=== PATIENT | female | born 1940 | race Caucasian/White ===

== ENCOUNTER 2016-07-19 14:59 | Outpatient (CLI) | payer MEDICARE, OTHER ==
[2016-07-19] MEDS ORDERED: IOPAMIDOL-300 100 ML VIAL IVP ONE (16:32)
== END 2016-07-19 15:00 | disposition home or self-care (01) ==
DX: J43.9 Emphysema, unspecified (principal); K44.9 Diaphragmatic hernia without obstruction or gangrene
CPT/HCPCS: 71275; Q9967

== ENCOUNTER 2016-09-23 11:32 | Outpatient (CLI) | payer MEDICARE, OTHER | END 2016-09-23 11:33 | disposition critical access hospital (66) | LOC: EMS 11:32 | PROVIDERS: ATTEND Surgery | DX: R06.00 Dyspnea, unspecified (principal) | CPT/HCPCS: A0425; A0429 ==

== ENCOUNTER 2016-09-23 11:57 | Emergency (ER) | payer MEDICARE, OTHER ==
--- NOTE | 2016-09-23 14:12 | ED Physician Documentation ---
PD HPI DYSPNEA - Stated complaint Stated Complaint: SOA - Chief complaint Chief Complaint: Resp - History obtained from History obtained from: Patient - Additional information Additional information: 76yo woman with COPD, on 2l home O2 at night, with increased dyspnea since last night, no cough. No chest pain or calf pain/swelling. Has been undergoing w/u for anemia, had previous dx of polycythemia but now on iron supplement for recent dx iron defy anemia. Upcoming cscope/egd. No help with nebs at home. Is on several days worth now of macrobid for UTI. Review of Systems Constitutional: denies: Fever, Chills Cardiac: denies: Chest pain / pressure, Palpitations, Pedal edema, Calf pain Respiratory: reports: Dyspnea. denies: Cough GI: reports: Bloody / black stool (from iron?). 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, Other HEENT: Cataracts, Tonsil/Adenoidectomy - Present Medications Home Medications: Ambulatory Orders Medication Instructions Recorded Confirmed Cholecalciferol (Vitamin D3) 1,000 unit PO DAILY 12/13/12 07/25/16 [Vitamin D] Docusate Sodium [Colace] 100 mg PO BID #30 capsule 12/13/12 07/25/16 Tiotropium [Spiriva] 1 puffs INH DAILY 12/13/12 07/25/16 amLODIPine [Norvasc] 5 mg PO DAILY 12/13/12 07/25/16 Lactobacillus Rhamnosus GG 1 each PO DAILY 01/15/13 07/25/16 [Probiotic] Anastrozole 1 mg PO DAILY 06/24/13 07/25/16 Aspirin [Aspirin EC] 81 mg ORAL DAILY 12/16/13 07/25/16 Atenolol 50 mg PO DAILY 03/27/15 07/25/16 Fluticasone/Salmeterol [Advair 2 each IH DAILY 03/29/15 07/25/16 100-50 Diskus] Ferrous Gluconate 324 mg PO BID 07/25/16 07/25/16 Cephalexin [Keflex] 500 mg PO QID #30 capsule 09/23/16 predniSONE [Deltasone] 20 mg PO [id number] #21 tab 09/23/16 - Allergies Allergies/Adverse Reactions: Allergies Allergy/AdvReac Type Severity Reaction Status Date / Time venom-honey bee Allergy Severe ANAPHYLAXIS Verified 09/17/15 11:35 [bee venom (honey bee)] FARZANEH Inhibitors Allergy TONGUE Verified 09/17/15 11:35 SWELLING - Social History Does the pt smoke?: No Smoking Status: Never smoker Does the pt drink ETOH?: Yes Does the pt have substance abuse?: No - Immunizations Immunizations are current?: Yes - POLST Patient has POLST: No PD ED PE NORMAL - Vitals Vital signs reviewed: Yes - General General: Alert and oriented X 3, No acute distress - HEENT HEENT: PERRL, EOMI - Neck Neck: Supple, no meningeal sign, No bony TTP - Cardiac Cardiac: RRR, No murmur - Respiratory Respiratory: No respiratory distress, Other (diminished throughout/) - Abdomen Abdomen: Soft, Non tender - Rectal Rectal: Other (Sarah RN present/chaperoning. Dark but guaiac neg stool QC pass.) - Derm Derm: Normal color, Warm and dry, No rash - Extremities Extremities: No edema, No calf tenderness / cord - Neuro Neuro: Alert and oriented X 3, Normal speech - Psych Psych: Normal mood, Normal affect Results - Vitals Vitals: Vital Signs - 24 hr 09/23/16 09/23/16 12:04 15:20 Temperature 36.3 C L Heart Rate 72 83 Respiratory 21 23 Rate Blood Pressure 135/64 H O2 Saturation 88 L Oxygen O2 Source [] Room air O2 Source Nasal cannula - EKG (time done) 1212 Rate: Rate (enter#) (71) Rhythm: NSR [place]: Normal QRS: Low voltage Ischemia: Normal ST segments Computer interpretation: Agree with computer - Labs Labs: Laboratory Tests 09/23/16 09/23/16 09/23/16 14:15 14:15 14:15 WBC 6.6 RBC 4.56 Hgb 11.2 L Hct 35.6 L MCV 78.1 L MCH 24.6 L MCHC 31.5 L RDW 24.5 H Plt Count 238 MPV 8.0 Neut # 4.6 Lymph # 0.9 L [place] # 0.7 Eos # 0.3 Baso # 0.1 Absolute Nucleated RBC 0.00 Nucleated RBCs 0.0 Manual Slide Review Indicated Platelet Estimate NORMAL (130-450,000) RBC Morph Micro Appear 1+ ELIPTOCYTES D-Dimer Sodium 139 Potassium 4.2 Chloride 103 Carbon Dioxide 26 Anion Gap 10.0 BUN 19 Creatinine 1.1 H Estimated GFR (MDRD) 48 L Glucose 99 Calcium 9.8 Iron 42 TIBC 400 % Saturation 10 L Transferrin 286 Ferritin 21.2 Total Bilirubin 0.5 AST 18 ALT 17 Alkaline Phosphatase 58 Troponin I Total Protein 6.8 Albumin 3.7 Globulin 3.1 Albumin/Globulin Ratio 1.2 Lipase 33 09/23/16 09/23/16 14:15 14:15 WBC RBC Hgb Hct MCV MCH MCHC RDW Plt Count MPV Neut # Lymph # [place] # Eos # Baso # Absolute Nucleated RBC Nucleated RBCs Manual Slide Review Platelet Estimate RBC Morph Micro Appear D-Dimer 201.0 Sodium Potassium Chloride Carbon Dioxide Anion Gap BUN Creatinine Estimated GFR (MDRD) Glucose Calcium Iron TIBC % Saturation Transferrin Ferritin Total Bilirubin AST ALT Alkaline Phosphatase Troponin I < 0.04 Total Protein Albumin Globulin Albumin/Globulin Ratio Lipase - Rads (name of study) 1v chest Radiology: EMP read contemporaneously (NAD) PD MEDICAL DECISION MAKING - ED course ED course: 76-year-old woman with COPD presents with acute dyspnea. Really no cough but her lungs were tight. Neb here without much improvement but she wasn't labored. Consideration for worsening anemia however her H&H is better and she is guaiac negative. Also consideration for cardiac etiology or PE but troponin and d-dimer are negative. Requested discharge. Says that prednisone has helped with similar exacerbations in the past. Departure - Departure Disposition: Home, Self Care Clinical Impression: Dyspnea, COPD exacerbation Condition: Good Record reviewed to determine appropriate education?: Yes Instructions: COPD Dc Prescriptions: predniSONE [Deltasone] 20 mg PO [id number] #21 tab Cephalexin [Keflex] 500 mg PO QID #30 capsule Comments: Call your doctor to arrange a follow up appointment. Make the next available appointment. In the interim return anytime if worse or if new symptoms develop. Your blood pressure was elevated today on check in to the emergency department. This does not mean that you have hypertension, it is a common phenomenon to check into the emergency department and have elevated blood pressure. I recommend that you see your primary care physician within the week to have it rechecked when you're feeling better.
[2016-09-23 14:23] LABS: BASOPHILS # (AUTO) 0.1 10^3/uL (0.0-0.1); BASOPHILS % (AUTO) 1.1 %; EOSINOPHILS # (AUTO) 0.3 10^3/uL (0.0-0.7); EOSINOPHILS % (AUTO) 5.3 %; HCT - HEMATOCRIT 35.6 % (37.0-47.0); HGB - HEMOGLOBIN 11.2 g/dL (12.0-16.0); LYMPHOCYTES # (AUTO) 0.9 10^3/uL (1.5-3.5); LYMPHOCYTES % (AUTO) 13.4 %; MEAN CORPUSCULAR HEMOGLOBIN 24.6 pg (27.0-31.0); MEAN CORPUSCULAR HGB CONC 31.5 g/dL (32.0-36.0); MEAN CORPUSCULAR VOLUME 78.1 fL (81.0-99.0); MONOCYTES # (AUTO) 0.7 10^3/uL (0.0-1.0); MONOCYTES % (AUTO) 10.2 %; NEUTROPHILS # (AUTO) 4.6 10^3/uL (1.5-6.6); RED BLOOD COUNT 4.56 10^6/uL (4.20-5.40); RED CELL DISTRIBUTION WIDTH 24.5 % (12.0-15.0); UNCORRECTED WHITE BLOOD COUNT 6.6 x10^3/uL; WHITE BLOOD COUNT 6.6 x10^3/uL (4.8-10.8)
[2016-09-23 14:44] LABS: PLATELET ESTIMATE, MANUAL NORMAL (130-450,000) (NORMAL)
--- NOTE | 2016-09-23 14:48 | XRAY Report ---
EXAM: CHEST RADIOGRAPHY EXAM DATE: 09/23/2016 02:31 PM. CLINICAL HISTORY: DYSPNEA. COMPARISON: CT chest 07/19/2016.. TECHNIQUE: 1 view. FINDINGS: Lungs/Pleura: No focal opacities evident. No pleural effusion. No pneumothorax. Mediastinum: Cardiomegaly. Calcified atherosclerosis. Large hilar hernia. Other: Multiple remote rib fractures. Arthritic change right shoulder. No acute bone abnormality. IMPRESSION: 1. No acute cardiopulmonary disease. 2. Calcified atherosclerosis, cardiomegaly and hiatal hernia. [facility] Referring Provider Line: [phone] SITE ID: [id number]
[2016-09-23 15:06] LABS: ALBUMIN/GLOBULIN RATIO 1.2 (1.0-2.2); BILIRUBIN,TOTAL 0.5 mg/dL (0.2-1.0); CALCIUM 9.8 mg/dL (8.5-10.3); CREATININE 1.1 mg/dL (0.4-1.0); POTASSIUM 4.2 mmol/L (3.5-5.0); TOTAL PROTEIN 6.8 g/dL (6.7-8.2)
[2016-09-23] MEDS ORDERED: IPRATROPIUM/ALBUTEROL 3 ML NEB INH STA (15:07)
[2016-09-23] MEDS ORDERED: IPRATROPIUM/ALBUTEROL 3 ML NEB INH ONE (15:16)
[2016-09-23] MEDS ORDERED: CEPHALEXIN 250 MG CAPSULE PO STA (16:01)
[2016-09-23] MEDS ORDERED: methylPREDNISolone SUCCINATE 125 MG/2 ML VIAL IVP STA (16:01)
[2016-09-23] MEDS ORDERED: CEPHALEXIN 250 MG CAPSULE PO ONE (16:28)
[2016-09-23] MEDS ORDERED: methylPREDNISolone SUCCINATE 125 MG/2 ML VIAL IVP ONE (16:28)
[2016-09-23 18:37] VITALS: BP 149/75
== END 2016-09-23 17:30 | disposition home or self-care (01) ==
LOC: EDUNIT# → ED 11:57
DX: J44.1 Chronic obstructive pulmonary disease with (acute) exacerbation (principal); Z99.81 Dependence on supplemental oxygen; I10 Essential (primary) hypertension; M19.90 Unspecified osteoarthritis, unspecified site; Z87.442 Personal history of urinary calculi
CPT/HCPCS: 36415; 71010; 80053; 82728; 83540; 83690; 84466; 84484; 85025; 85379; 86850; 86900; 86901; 93005; 93010; 94640; 96374; 99284; A9270; J7620

== ENCOUNTER 2016-11-09 10:36 | Day surgery (SDC) | payer MEDICARE, OTHER ==
[2016-11-09] MEDS ORDERED: LACTATED RINGERS 1,000 ML IV ONE (11:17)
--- NOTE | 2016-11-09 12:57 | HISTORY & PHYSICAL EXAMINATION ---
HPI - History of Present Illness HPI Comment/Other: Patient is here for colonoscopy for iron deficiency anemia Current Meds: TYLENOL EXTRA STRENGTH 500 MG TABS (ACETAMINOPHEN) Take one tablet by mouth three times daily as needed for pain or fever VITAMIN C 1000 MG TABS (ASCORBIC ACID) Take one tablet by mouth daily COLACE 100 MG CAPS (DOCUSATE SODIUM) Take one capsule by mouth twice daily ATENOLOL-CHLORTHALIDONE 100-25 MG ORAL TABS (ATENOLOL-CHLORTHALIDONE) Take 1/2 tablet by mouth ANASTROZOLE 1 MG ORAL TABS (ANASTROZOLE) Take one tablet by mouth once a day AMLODIPINE BESYLATE 5 MG ORAL TABS (AMLODIPINE BESYLATE) Take one tablet by mouth once a day ATENOLOL 50 MG ORAL TABS (ATENOLOL) Take one tablet by mouth daily ASPIRIN EC 81 MG TBEC (ASPIRIN) Take one tablet by mouth daily ADVAIR DISKUS 100-50 MCG/DOSE MISC (FLUTICASONE-SALMETEROL) Use one inhalation twice daily Allergies: MORPHINE (Critical) FARZANEH INHIBITORS (Critical) DIOVAN (Critical) LIBRAX (CHLORDIAZEPOXIDE-CLIDINIUM CAPS) (Critical) * BENZODIAZEPINES (Critical) * BEE (Critical) * ADHESIVES (Critical) Past Medical History: Reviewed history from 07/14/2016 and no changes required: Hypertension LUmbar disk disease Polycythemia Vera COPD IBS TIA Emphyzema Pneumonia Infiltating ductal Breast cancer Osteopenia Osteoporosis Anemia Past Surgical History: Reviewed history from 07/14/2016 and no changes required: Fracture Fibula and left knee Pelvic Hip fracture, L1 column Fx T&A Bilateral Foot reconstruction Arthoscopic knee Bone marrow biopsy 2009 Appendectomy 2011 Diverticulitis 1998 Pneumonia 2008 Reclast infusion 2016 Family History Summary: Reviewed history Last on 08/16/2016 and no changes required:09/15/2016 Father (biol.) - Has Family History of Hypertension - Entered On: 09/15/2016 General Comments - FH: Mother: NH Father: Hypertension, Hyperlipidemia Social History: Reviewed history from 07/14/2016 and no changes required: Passive smoke exposure - no Alcohol Use - no Drug Use - no HIV/High Risk - no Regular Exercise - yes Caffeine: yes Risk Factors: Smoked Tobacco Use: Former smoker Passive smoke exposure: no Drug use: no HIV high-risk behavior: no Alcohol use: no Exercise: no Problems were reviewed with the patient during this visit. Medications were reviewed with the patient during this visit. Allergies were reviewed with the patient during this visit. Allergies: MORPHINE (Critical) FARZANEH INHIBITORS (Critical) DIOVAN (Critical) LIBRAX (CHLORDIAZEPOXIDE-CLIDINIUM CAPS) (Critical) * BENZODIAZEPINES (Critical) * BEE (Critical) * ADHESIVES (Critical) Physical Exam General: well developed, well nourished, in no acute distress Lungs: clear bilaterally to A & P Heart: regular rate and rhythm, S1, S2 without murmurs, rubs, gallops, or clicks Abdomen: bowel sounds positive; abdomen soft and non-tender without masses, organomegaly, or hernias noted Pulses: pulses normal in all 4 extremities Extremities: no clubbing, cyanosis, edema, or deformity noted with normal full range of motion of all joints Cervical Nodes: no significant adenopathy Psych: alert and cooperative; normal mood and affect; normal attention span and concentration Problems: Problems Added: 1) Dx of Iron deficiency anemia (GYH52-A67.9) (ICD-280.9) Impression & Recommendations: Problem # 1: Iron deficiency anemia will proceed with colonoscopy PMH/PSH - Past Medical History Cardiovascular: positive: Hypertension Respiratory: positive: COPD Neuro: positive: Fainting Endocrine/Autoimmune: positive: None GI: positive: Other : positive: None, Kidney stones HEENT: positive: None Psych: positive: None Musculoskeletal: positive: Osteoarthritis Derm: positive: None MRSA Hx?: No - Past Surgical History General: positive: Appendectomy Ortho: positive: Rotator cuff repair, 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: 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 and currettage, Other HEENT: positive: Cataracts, Tonsil/Adenoidectomy Social & Family Hx - Social History Does the pt smoke?: No Smoking Status: Never smoker Does the pt drink ETOH?: Yes Does the pt have substance abuse?: No - POLST Patient has POLST: No Meds/Allgy - Home Medications Home Medications: Ambulatory Orders Medication Instructions Recorded Confirmed Cholecalciferol (Vitamin D3) 1,000 unit PO DAILY 12/13/12 09/26/16 [Vitamin D] Docusate Sodium [Colace] 100 mg PO BID #30 capsule 12/13/12 09/26/16 Tiotropium [Spiriva] 1 puffs INH DAILY 12/13/12 09/26/16 amLODIPine [Norvasc] 5 mg PO DAILY 12/13/12 09/26/16 Lactobacillus Rhamnosus GG 1 each PO DAILY 01/15/13 09/26/16 [Probiotic] Anastrozole 1 mg PO DAILY 06/24/13 09/26/16 Aspirin [Aspirin EC] 81 mg ORAL DAILY 12/16/13 09/26/16 Atenolol 50 mg PO DAILY 03/27/15 09/26/16 Fluticasone/Salmeterol [Advair 2 each IH DAILY 03/29/15 09/26/16 100-50 Diskus] Ferrous Gluconate 324 mg PO BID 07/25/16 09/26/16 Cephalexin [Keflex] 500 mg PO QID #30 capsule 09/23/16 09/26/16 predniSONE [Deltasone] 0.25 mg PO [id number] 11/09/16 11/09/16 - Allergies Allergies/Adverse Reactions: Allergies Allergy/AdvReac Type Severity Reaction Status Date / Time venom-honey bee Allergy Severe ANAPHYLAXIS Verified 09/17/15 11:35 [bee venom (honey bee)] FARZANEH Inhibitors Allergy TONGUE Verified 09/17/15 11:35 SWELLING Exam - Vital Signs Vital Signs: Vital Signs x48h Temp Pulse Resp BP Pulse Ox 11/09/16 10:40 36.9 C 76 18 157/91 H 94
[2016-11-09] MEDS ORDERED: MIDAZOLAM 2 MG/2 ML VIAL IVP ONE (13:01)
[2016-11-09] MEDS ORDERED: fentaNYL 100 MCG/2 ML VIAL IVP ONE (13:01)
[2016-11-09 15:34] VITALS: BP 133/78
== END 2016-11-09 10:37 | disposition home or self-care (01) ==
LOC: SDS 10:36
PROVIDERS: ATTEND Surgery
PROC: 0DBN8ZX Excision of Sigmoid Colon, Via Natural or Artificial Opening Endoscopic, Diagnostic (ICD-10-PCS; principal; 2016-11-09 12:00)
DX: D50.9 Iron deficiency anemia, unspecified (principal); D12.5 Benign neoplasm of sigmoid colon; K64.4 Residual hemorrhoidal skin tags; K57.30 Diverticulosis of large intestine without perforation or abscess without bleeding; I10 Essential (primary) hypertension; J44.9 Chronic obstructive pulmonary disease, unspecified; Z82.49 Family history of ischemic heart disease and other diseases of the circulatory system; Z87.891 Personal history of nicotine dependence; Z86.73 Personal history of transient ischemic attack (TIA), and cerebral infarction without residual deficits; Z79.82 Long term (current) use of aspirin
CPT/HCPCS: 45385; J7120; 88305

== ENCOUNTER 2016-12-20 11:16 | Outpatient (CLI) | payer MEDICARE, OTHER | END 2016-12-20 11:17 | disposition home or self-care (01) | LOC: DI 11:16 | PROVIDERS: ATTEND Internal Medicine Hematology & Oncology | DX: Z53.9 Procedure and treatment not carried out, unspecified reason (principal) ==

== ENCOUNTER 2016-12-26 13:51 | Outpatient (CLI) | payer MEDICARE, OTHER ==
--- NOTE | 2016-12-27 08:50 | Mammography Report ---
DIGITAL DIAGNOSTIC BILATERAL MAMMOGRAM: 12/26/2016 CLINICAL INDICATION: Personal history of left breast cancer status post lumpectomy and radiation the rapy. COMPARISON: 12/2015, 12/2014, 05/2014, 10/2013, 01/2013, 10/2012, 09/2012, 04/2010. The breasts again demonstrate heterogeneously dense fibroglandular parenchyma bilaterally. Postopera tive and post-treatment changes in the left breast are stable. Coarse and punctate, typically benign calcifications are present. No suspicious masses, clustered microcalcifications, or regions of arch itectural distortion are identified. IMPRESSION: BENIGN FINDINGS. RECOMMENDATION: ROUTINE ANNUAL MAMMOGRAPHY UNLESS OTHERWISE CLINICALLY INDICATED. BIRADS CATEGORY: 2, BENIGN FINDINGS. STANDARD QUALIFYING STATEMENTS 1. This examination was reviewed with the aid of Computed-Aided Detection (CAD). 2. A negative or benign imaging report should not delay biopsy if clinically suspicious findings are present. Consider surgical consultation if warranted. More than 5% of cancers are not identified b y imaging. 3. Dense breasts may obscure an underlying neoplasm. JOB #: [id number] EXT JOB #:
== END 2016-12-26 13:52 | disposition home or self-care (01) ==
LOC: DI 13:51
PROVIDERS: ATTEND Internal Medicine Hematology & Oncology
DX: C50.912 Malignant neoplasm of unspecified site of left female breast (principal); Z92.3 Personal history of irradiation
CPT/HCPCS: 77066

== ENCOUNTER 2017-03-12 15:32 | Outpatient (CLI) | payer MEDICARE, OTHER ==
[2017-03-12 18:46] LABS: CALCIUM 9.6 mg/dL (8.5-10.3); POTASSIUM 4.2 mmol/L (3.5-5.0)
== END 2017-03-12 15:33 | disposition home or self-care (01) ==
LOC: LAB.F 15:32
PROVIDERS: ATTEND Nurse Practitioner Family
DX: M81.0 Age-related osteoporosis without current pathological fracture (principal)
CPT/HCPCS: 36415; 80048

== ENCOUNTER 2017-04-27 14:30 | Outpatient (CLI) | payer MEDICARE, OTHER ==
[2017-04-27 17:36] LABS: BILIRUBIN,URINE NEGATIVE (NEGATIVE); GLUCOSE, URINE (UA) NEGATIVE (NEGATIVE); KETONES,URINE (UA) NEGATIVE (NEGATIVE); LEUKOCYTE ESTERASE, URINE NEGATIVE (NEGATIVE); NITRITE,URINE NEGATIVE (NEGATIVE); OCCULT BLOOD,URINE NEGATIVE (NEGATIVE); PROTEIN,URINE NEGATIVE (NEGATIVE); UROBILINOGEN,URINE 0.2 (NORMAL) E.U./dL (NORMAL)
[2017-04-27 17:50] LABS: CLARITY,URINE CLEAR (CLEAR); RBC,URINE 0-5 /HPF (0-5); SQUAMOUS EPITHELIAL CELL,UR RARE Squamous (<= Few)
[2017-04-27 17:51] LABS: BACTERIA,URINE None Seen /HPF (None Seen); EPITHELIAL CELLS,UR FEW Transitional /HPF (<= Few)
== END 2017-04-27 14:31 | disposition home or self-care (01) ==
LOC: LAB.R 14:30
PROVIDERS: ATTEND Nurse Practitioner Family
DX: N39.0 Urinary tract infection, site not specified (principal)
CPT/HCPCS: 81001; 81003; 87086

== ENCOUNTER 2017-10-08 | Outpatient (CLI) | END 2017-10-08 11:28 | disposition critical access hospital (66) | CPT/HCPCS: A0425; A0427 ==

== ENCOUNTER 2017-10-08 11:57 | Observation (INO) | payer MEDICARE, OTHER ==
[2017-10-08 13:00] LABS: BASOPHILS % (AUTO) 1.2 %; EOSINOPHILS % (AUTO) 2.3 %; HGB - HEMOGLOBIN 13.3 g/dL (12.0-16.0); LYMPHOCYTES % (AUTO) 17.6 %; MEAN CORPUSCULAR HEMOGLOBIN 29.1 pg (27.0-31.0); MEAN CORPUSCULAR HGB CONC 32.6 g/dL (32.0-36.0); MEAN CORPUSCULAR VOLUME 89.3 fL (81.0-99.0); MEAN PLATELET VOLUME 8.6 fL (7.9-10.8); MONOCYTES % (AUTO) 10.9 %; PLT - PLATELET COUNT 207 10^3/uL (130-450); RED BLOOD COUNT 4.58 10^6/uL (4.20-5.40); RED CELL DISTRIBUTION WIDTH 15.6 % (12.0-15.0); WHITE BLOOD COUNT 7.3 x10^3/uL (4.8-10.8)
--- NOTE | 2017-10-08 13:04 | ED Physician Documentation ---
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, Other HEENT: Cataracts, Tonsil/Adenoidectomy - Present Medications Home Medications: Ambulatory Orders Medication Instructions Recorded Confirmed Cholecalciferol (Vitamin D3) 1,000 unit PO DAILY 12/13/12 10/08/17 [Vitamin D] Tiotropium [Spiriva] 1 puffs INH DAILY 12/13/12 10/08/17 amLODIPine [Norvasc] 5 mg PO DAILY 12/13/12 10/08/17 Aspirin [Aspirin EC] 81 mg ORAL DAILY 12/16/13 10/08/17 Atenolol 50 mg PO DAILY 03/27/15 10/08/17 Fluticasone/Salmeterol [Advair 1 puffs INH BID 03/29/15 10/08/17 100-50 Diskus] Ferrous Gluconate 324 mg PO BID 07/25/16 10/08/17 Albuterol Sulfate [Proair Hfa 1 - 2 puffs INH Q4H PRN 10/08/17 10/08/17 Inhaler] Anastrozole [Anastrozole] 1 mg PO DAILY 10/08/17 10/08/17 Docusate Sodium 100 mg PO DAILY PRN 10/08/17 10/08/17 predniSONE [Deltasone] 5 mg PO DAILY 10/08/17 10/08/17 - Allergies Allergies/Adverse Reactions: Allergies Allergy/AdvReac Type Severity Reaction Status Date / Time venom-honey bee Allergy Severe ANAPHYLAXIS Verified 03/30/17 12:35 [bee venom (honey bee)] FARZANEH Inhibitors Allergy TONGUE Verified 03/30/17 12:35 SWELLING - Social History Does the pt smoke?: No Smoking Status: Former smoker Does the pt drink ETOH?: Yes Does the pt have substance abuse?: No - Immunizations Immunizations are current?: Yes - POLST Patient has POLST: No PD ED PE NORMAL - Vitals Vital signs reviewed: Yes - Cardiac Cardiac: RRR - Respiratory Respiratory: No respiratory distress, Clear bilaterally, Other (no wheeze or ronchi) - Abdomen Abdomen: Soft, Non tender - Derm Derm: Normal color - Extremities Extremities: No deformity, No calf tenderness / cord. No: No edema (mod RLE edema at ankle) Results - Vitals Vitals: Vital Signs - 24 hr 10/08/17 10/08/17 10/08/17 11:58 12:12 14:08 Temperature 36.5 C Heart Rate 62 61 67 Respiratory 20 18 19 Rate Blood Pressure 138/86 H 130/108 H 122/73 O2 Saturation 100 100 100 Oxygen O2 Source [With Activity] Room air O2 Source Nasal cannula Oxygen Flow Rate 2 - EKG (time done) 1432 Rate: Rate (enter#) (66) Rhythm: NSR [place]: Normal Intervals: Normal [place] Ischemia: Normal ST segments - Labs Labs: Laboratory Tests 10/08/17 10/08/17 10/08/17 12:37 12:37 12:37 WBC 7.3 RBC 4.58 Hgb 13.3 Hct 40.9 MCV 89.3 MCH 29.1 MCHC 32.6 RDW 15.6 H Plt Count 207 MPV 8.6 Neut # (Auto) Not Reportable Lymph # (Auto) Not Reportable [place] # (Auto) Not Reportable Eos # (Auto) Not Reportable Baso # (Auto) Not Reportable Absolute Nucleated RBC Not Reportable Total Counted 100 Band Neuts % (Manual) 1 Reactive Lymphs % (Man) 9 Abnorm Lymph % (Manual) 0 Myelocytes % 1 H Nucleated RBC % Not Reportable Neutrophils # (Manual) 5.3 Lymphocytes # (Manual) 1.5 Monocytes # (Manual) 0.4 Eosinophils # (Manual) 0.0 Basophils # (Manual) 0.1 Differential Comment MANUAL DIFFERENTIAL Manual Slide Review Indicated RBC Morph Micro Appear 2+ ANISOCYTOSIS Sodium 139 Potassium 3.9 Chloride 105 Carbon Dioxide 28 Anion Gap 6.0 BUN 20 Creatinine 1.1 H Estimated GFR (MDRD) 48 L Glucose 90 Calcium 8.8 Total Bilirubin 0.7 AST 16 ALT 16 Alkaline Phosphatase 32 L Troponin I < 0.04 B-Natriuretic Peptide Total Protein 6.1 L Albumin 3.3 Globulin 2.8 Albumin/Globulin Ratio 1.2 Lipase 31 10/08/17 12:37 WBC RBC Hgb Hct MCV MCH MCHC RDW Plt Count MPV Neut # (Auto) Lymph # (Auto) [place] # (Auto) Eos # (Auto) Baso # (Auto) Absolute Nucleated RBC Total Counted [place] % (Manual) Reactive Lymphs % (Man) Abnorm Lymph % (Manual) Myelocytes % Nucleated RBC % Neutrophils # (Manual) Lymphocytes # (Manual) Monocytes # (Manual) Eosinophils # (Manual) Basophils # (Manual) Differential Comment Manual Slide Review RBC Morph Micro Appear Sodium Potassium Chloride Carbon Dioxide Anion Gap BUN Creatinine Estimated GFR (MDRD) Glucose Calcium Total Bilirubin AST ALT Alkaline Phosphatase Troponin I B-Natriuretic Peptide 81 Total Protein Albumin Globulin Albumin/Globulin Ratio Lipase - Rads (name of study) CTPA Radiology: See rad report CXR Radiology: See rad report (no acute process) doppler Radiology: See rad report (no DVT) PD MEDICAL DECISION MAKING - ED course ED course: not wheezing, good air movement, not relieved with her MDIs etc - do not think this is COPD exacerbation RLE swelling so reasonable concern for PE but CTPA neg for PE - also neg for edema infiltrate etc and lower ext doppler neg still leave possible cardiac etiology since sx are exertional - could be angina will admit for echo stress etc - Sepsis Event Vital Signs: Vital Signs - 24 hr 10/08/17 10/08/17 10/08/17 11:58 12:12 14:08 Temperature 36.5 C Heart Rate 62 61 67 Respiratory 20 18 19 Rate Blood Pressure 138/86 H 130/108 H 122/73 O2 Saturation 100 100 100 Oxygen O2 Source [With Activity] Room air O2 Source Nasal cannula Oxygen Flow Rate 2 Departure - Departure Disposition: ED Place in Observation Clinical Impression: Dyspnea on exertion Condition: Fair Discharge Date/Time: 10/08/17 15:38
--- NOTE | 2017-10-08 13:07 | XRAY Report ---
Procedure Date: 10/08/2017 Accession Number: [id number] / [id number] Procedure: XR - Chest 2 View X-Ray CPT Code: 28612 FULL RESULT: EXAM: CHEST RADIOGRAPHY EXAM DATE: 10/08/2017 12:40 PM. CLINICAL HISTORY: Cough, dyspnea. COMPARISON: 09/18/2015. TECHNIQUE: 2 views. FINDINGS: Lungs/Pleura: No focal consolidation. Mild bibasilar reticular opacities are similar to prior and likely reflect scarring. No pneumothorax or pleural effusion. Borderline hyperinflation. Mediastinum: Mild enlargement of the cardiac silhouette. Moderate hiatal hernia. Tortuous, atherosclerotic thoracic aorta. Other: Old right rib fractures again demonstrated. IMPRESSION: No radiographically apparent acute abnormality in the chest. No significant change from prior. [facility]
[2017-10-08 13:12] LABS: ALBUMIN 3.3 g/dL (3.2-5.5); ALBUMIN/GLOBULIN RATIO 1.2 (1.0-2.2); BILIRUBIN,TOTAL 0.7 mg/dL (0.2-1.0); CALCIUM 8.8 mg/dL (8.5-10.3); CREATININE 1.1 mg/dL (0.4-1.0); TOTAL PROTEIN 6.1 g/dL (6.7-8.2)
[2017-10-08 13:17] LABS: RBC MORPHOLOGY (MULTIPLE) 2+ ANISOCYTOSIS (NORMAL)
[2017-10-08 13:18] LABS: ABNORMAL LYMPHS % (MANUAL) 0 %
[2017-10-08] MEDS ORDERED: IOPAMIDOL-300 100 ML VIAL ONE (13:18)
[2017-10-08 13:21] LABS: BAND NEUTROPHILS % (MANUAL) 1 %; BASOPHILS # (MANUAL) 0.1 10^3/uL (0-0.1); BASOPHILS % (MANUAL) 2 %; LYMPHOCYTES # (MANUAL) 1.5 10^3/uL (1.5-3.5); LYMPHOCYTES % (MANUAL) 11 %; MONOCYTES # (MANUAL) 0.4 10^3/uL (0.0-1.0); MYELOCYTES % (MANUAL) 1 %; NEUTROPHILS # (MANUAL) 5.3 10^3/uL (1.5-6.6); NEUTROPHILS % (MANUAL) 71 %
[2017-10-08 13:22] LABS: DIFFERENTIAL COMMENT MANUAL DIFFERENTIAL
[2017-10-08] MEDS ORDERED: IOPAMIDOL-300 100 ML VIAL IVP ONE ×2 (13:41→14:59)
--- NOTE | 2017-10-08 14:04 | CT Report ---
Procedure Date: 10/08/2017 Accession Number: [id number] / [id number] Procedure: CT - Chest Angio (PE) CPT Code: FULL RESULT: EXAM: CT ANGIOGRAM CHEST EXAM DATE: 10/08/2017 01:39 PM. CLINICAL HISTORY: Shortness of air. Right lower extremity swelling. COMPARISON: 07/19/2016. TECHNIQUE: Routine helical imaging was performed through the chest in the pulmonary arterial phase. IV Contrast: 80 cc Isovue 300 IV. Reconstructions: Coronal 3-D MIP reconstructions.Sagittal and coronal. In accordance with CT protocol optimization, one or more of the following dose reduction techniques were utilized for this exam: automated exposure control, adjustment of mA and/or KV based on patient size, or use of iterative reconstructive technique. FINDINGS: Pulmonary Arteries: Diagnostic quality: Adequate through the segmental arteries. Negative for acute pulmonary embolism. The main pulmonary artery is normal in size. Lungs/Pleura: There is a moderate degree of diffuse centrilobular emphysema. There is right lower lobe atelectasis secondary to hiatal hernia. No consolidative process or pulmonary edema. No central endobronchial obstructing mass. Mediastinum: There is a moderate-sized sliding hiatal hernia. The heart size is normal. There is no pericardial effusion. There is moderate coronary artery atherosclerotic calcification. Thoracic Aorta: There is aortic calcification without aneurysm. Upper Abdomen: Unremarkable. Other: There are multiple old right-sided posterior and lateral rib fractures with callus formation. IMPRESSION: 1. Negative for acute pulmonary embolism. 2. Moderate centrilobular emphysema. 3. Moderate-sized hiatal hernia with right lower lobe atelectasis. 4. No acute pneumonia or pulmonary edema. [facility]
--- NOTE | 2017-10-08 14:48 | Ultrasound Report ---
Procedure Date: 10/08/2017 Accession Number: [id number] / [id number] Procedure: US - Duplex Ext Veins Right CPT Code: FULL RESULT: EXAM: Duplex Ext Veins Right DATE: 10/08/2017 2:24 PM CLINICAL HISTORY: Right lower extremity swelling COMPARISON: None. TECHNIQUE: Real-time sonographic vascular imaging was performed by the work adjustment instructor through the lower extremities utilizing both color-flow and Doppler spectral analysis. Multiple communications representative static images were saved for review. FINDINGS: Right: Common Femoral Vein (CFV): Normal. Superficial Femoral Vein (SFV) Prox: Normal. Superficial Femoral Vein (SFV) Mid: Normal. Superficial Femoral Vein (SFV) Dist: Normal. Popliteal Vein: Normal. Posterior Tibial Veins: Normal. Peroneal Veins: Normal. IMPRESSION: Negative. No evidence for deep venous thrombosis right lower extremity. [facility]
[2017-10-08] MEDS ORDERED: PROCHLORPERAZINE 10 MG/2 ML VIAL IVP PRN (18:00)
[2017-10-08] MEDS ORDERED: ACETAMINOPHEN 325 MG TABLET PO PRN (18:00)
[2017-10-08] MEDS ORDERED: ALBUTEROL NEB 2.5 MG/3 ML INH PRN (18:30)
[2017-10-08] MEDS ORDERED: IPRATROPIUM/ALBUTEROL 3 ML NEB INH PRN (18:40)
[2017-10-08] MEDS ORDERED: IPRATROPIUM 0.2 MG/ML NEB INH SCH ×2 (19:00)
[2017-10-08] MEDS: methylPREDNISolone SUCCINATE 125 MG/2 ML VIAL IVP SCH ×2 (19:05→21:27)
[2017-10-08] MEDS: SODIUM CHLORIDE FLUSH 0.9% 10 ML SYRINGE IVP PRN ×2 (19:05→21:27)
[2017-10-08] MEDS: IPRATROPIUM 0.2 MG/ML NEB INH SCH (19:20)
[2017-10-08] MEDS: FORMOTEROL FUMARATE NEB 20 MCG/2 ML INH SCH (19:20)
[2017-10-08] MEDS: BUDESONIDE 0.5 MG/2 ML NEB INH SCH (19:21)
--- NOTE | 2017-10-08 20:33 | HISTORY & PHYSICAL EXAMINATION ---
DATE OF SERVICE: 10/08/2017 Physician: Lashon Lara MD HISTORY OF PRESENT ILLNESS: This is a 77-year-old white female with history of COPD on oxygen at night, she is followed by a remittance clerk, she is an ex-smoker who quit 4 years ago. The patient has been experiencing worsening dyspnea on exertion for approximately a week, she did call her remittance clerk, who ordered outpatient testing to rule out PE and cardiac testing, which are not yet done. Today, she experienced severe air hunger, had orthopnea, shortness of breath at rest and called an ambulance. She was hypoxemic at home despite using her oxygen. She presented to the emergency room. She was given nebulizers and steroids and had no improvement in her shortness of breath at rest. The emergency room workup included a CT angio, which showed no evidence of pulmonary embolism and leg Doppler, which showed no evidence of DVT. She was being placed in Qbservation for further evaluation of causes of shortness of breath. PAST MEDICAL HISTORY: Chronic obstructive pulmonary disease, she claims that it is not severe, she is on oxygen nocturnally only. She is on prednisone 5 mg daily for this. She otherwise has a negative past medical history. ALLERGIES 1. BEE VENOM. 2. FARZANHE INHIBITORS. MEDICATIONS 1. Colace. 2. Vitamin D3. 3. Iron. 4. Advair inhaler b.i.d. 5. ProAir inhaler every 4 hours p.r.n. 6. Anastrozole 1 mg daily. 7. Atenolol 50 mg daily. 8. Prednisone 5 mg daily. 9. Baby aspirin daily. 10. Amlodipine 5 mg daily. FAMILY HISTORY: No inherited diseases. SOCIAL HISTORY: The patient is a . She is an ex-smoker who quit 4 years ago, drinks social alcohol. Denies illicit drug use. The patient is still active, drives a car. REVIEW OF SYSTEMS: The patient states she "overdid it for the last 2 days." She was shopping for her sister who is visiting from out of town, arriving tomorrow. She has been cleaning the house for this event as well. She denies a fever, sputum production, but has chronic cough. There is a history of orthopnea, worse this core cleaner. She denies chest pain ever, palpitations, dizziness or syncope. She does describe leg edema only of the right ankle over the last 3 days. A comprehensive review of systems was performed and the pertinent positives are listed here, the rest are negative. PHYSICAL EXAMINATION GENERAL: Small, elderly white female. She has mild shortness of breath at rest , wearing a nasal cannula. VITAL SIGNS: Blood pressure 150/100, heart rate 65 in sinus rhythm, respiratory rate 18, O2 saturation on 4 liters nasal cannula is 100%, afebrile. HEENT: Reveals dry oral mucosa, she has pursed lip breathing. No stridor or accessory muscle use. NECK: Without JVD or carotid bruits. LUNGS: Has diffuse scattered minimal wheezing and a prolonged expiratory phase. No rales or rhonchi. HEART: Heart sounds are normal. No murmur, no gallop, no RV heave. ABDOMEN: Soft with positive bowel sounds. Nontender. No organomegaly. EXTREMITIES: Mild swelling of the posterior right malleolus without tenderness or redness. No pedal edema otherwise bilaterally. There is no calf tenderness. NEUROLOGIC: Intact. LABORATORIES: Normal electrolytes. Normal BUN and creatinine. Normal liver tests. Troponin not detectable. BNP normal at 81. White blood count 7.3, hemoglobin 13.3, platelet count normal at 207. INR was not done. Chest x-ray: old right rib fracture and hyperinflation, tortuous aorta, mild cardiomegaly. CTA of the chest showed: no pulmonary embolism, there is moderate diffuse centrilobular emphysema, no pulmonary edema. No mass. Moderate hiatal hernia, no pericardial effusion, coronary atherosclerosis is seen. Venous Doppler showed: no evidence of DVT of the right lower extremity. EKG: Normal sinus rhythm, low voltage in the limb leads, otherwise within normal limits. IMPRESSION 1. Dyspnea on exertion. 2. Chronic obstructive pulmonary disease without exacerbation. She tells me this is her chronic cough, chronic wheezes and no effect from nebulizers in the ER. 3. Right ankle swelling, which appears to not be from dependent edema. PLAN: Place the patient in Observation on Telemetry. Cycle cardiac enzymes to rule out an NV. Obtain a cardiac stress test in the morning using Lexiscan stress, she will be n.p.o. after midnight. Obtain an Echo to evaluate LV and RV contractility. Continue to use her supplemental oxygen, and nebulizers will be ordered around the clock, a pulse of steroids. CODE STATUS: FULL CODE. DEEP VENOUS THROMBOSIS PROPHYLAXIS: SCDs. ATTESTATION: The patient is expected to be discharged or transferred to another facility within 96 hours: Yes. cc: Marii Ceja M.D. TD: 10/08/2017 20:06 MTDD
[2017-10-08] MEDS: FAMOTIDINE 20 MG TABLET PO SCH (21:27)
[2017-10-09] MEDS: SODIUM CHLORIDE FLUSH 0.9% 10 ML SYRINGE IVP SCH ×3 (00:15→14:14)
[2017-10-09] MEDS: methylPREDNISolone SUCCINATE 125 MG/2 ML VIAL IVP SCH ×2 (05:40→14:14)
[2017-10-09] MEDS: SODIUM CHLORIDE FLUSH 0.9% 10 ML SYRINGE IVP PRN (05:40)
[2017-10-09] MEDS: IPRATROPIUM 0.2 MG/ML NEB INH SCH (07:40)
[2017-10-09] MEDS: FORMOTEROL FUMARATE NEB 20 MCG/2 ML INH SCH ×2 (07:40→08:00)
[2017-10-09] MEDS: BUDESONIDE 0.5 MG/2 ML NEB INH SCH (07:40)
[2017-10-09] MEDS ORDERED: ASPIRIN EC 81 MG TABLET PO SCH (09:00)
[2017-10-09] MEDS ORDERED: CHOLECALCIFEROL 1,000 UNIT TABLET PO SCH (09:00)
[2017-10-09] MEDS ORDERED: POLYETHYLENE GLYCOL 3350 17 GM PACKET PO SCH (09:00)
[2017-10-09] MEDS ORDERED: ANASTROZOLE 1 MG TABLET PO SCH (09:00)
[2017-10-09] MEDS ORDERED: predniSONE 5 MG TABLET PO SCH (09:00)
[2017-10-09] MEDS ORDERED: amLODIPine 5 MG TABLET PO SCH (09:00)
[2017-10-09] MEDS ORDERED: ATENOLOL 25 MG TABLET PO SCH (09:00)
[2017-10-09] MEDS: FAMOTIDINE 20 MG TABLET PO SCH (09:19)
[2017-10-09] MEDS ORDERED: REGADENOSON 0.4 MG/5 ML SYRINGE IVP ONE (12:05)
[2017-10-09 15:41] VITALS: BP 156/72
--- NOTE | 2017-10-09 16:13 | Nuclear Medicine Report ---
Procedure Date: 10/09/2017 Accession Number: [id number] / [id number] Procedure: NM - Myocardial Perfusion STR/RST CPT Code: FULL RESULT: EXAM: SINGLE-ISOTOPE PHARMACOLOGICAL STRESS TEST WITH REGADENOSON. SINGLE-ISOTOPE AND ONE-DAY REST/STRESS MYOCARDIAL PERFUSION SCANS WITH TOMOGRAPHIC IMAGING, QUANTITATIVE ANALYSIS, WALL MOTION ANALYSIS AND CALCULATION OF EJECTION FRACTION. EXAM DATE: 10/09/2017 03:37 PM. CLINICAL HISTORY: SOB. COMPARISON: None. TECHNIQUE: After the intravenous administration of 9.9 mCi of Tc-99m sestamibi, a rest myocardial perfusion scan was done with tomography. Motion correction was applied when appropriate. After an appropriate delay, pharmacological stress was performed with the infusion of 0.4 mg regadenoson per protocol. According to protocol, 42.6 mCi of Tc-99m sestamibi was injected for stress myocardial perfusion scan. Motion correction was applied when appropriate. Gated tomographic images were obtained for wall motion analysis and computation of left ventricular ejection fraction. FINDINGS: Perfusion images: Left ventricular chamber size is normal at rest and unchanged at stress. No convincing fixed perfusion deficits. No convincing reversible perfusion deficits. Gated images: No focal wall motion abnormality. The left ventricular ejection fraction is estimated at 80% (normal > 50%). IMPRESSION: 1. No convincing reversible perfusion deficits to indicate stress-induced ischemia. 2. No convincing fixed perfusion deficits. 3. Left ventricular ejection fraction of 88% (normal > 50%). 4. No focal wall motion abnormalities. RADIA
--- NOTE | 2017-10-09 16:45 | Discharge Plan ---
Discharge Plan Disposition: 01 Home, Self Care Condition: Poor Prescriptions: Albuterol 2.5 mg INH TID #60 neb Methylprednisolone [Medrol] 4 mg PO UD #1 tab.ds.pk Diet: Low Sodium Activity Restrictions: Activity as Tolerated Shower Restrictions: No Driving Restrictions: No Instruction Topics: COPD, COPD Dc Additional Instructions or Follow Up instructions: See your PCP and/or Retail Personal Banker for further management of your COPD. A Medrol dose pack has been ordered for you. After you finish that tapering down schedule, resume your daily Prednisone 5 mg. Use your puffers and an aAbuterol nebulizer prescription has been ordered, you can use this 3 times a day. Follow-Up Care: [facility] - Pulmonary No Smoking: If you smoke, Please STOP! Call for help. Follow-up with: Anayeli Rod ARNP [Primary Care Provider] -
--- NOTE | 2017-10-10 00:30 | CARDIAC PROCEDURE NOTE ---
DATE OF SERVICE: 10/09/2017 Physician: Lashon Lara MD PROCEDURE: Pharmaceutical stress test with nuclear imaging INDICATIONS FOR TEST: Dyspnea on exertion. RISK FACTORS FOR CORONARY DISEASE: Heavy smoking, advanced age, hypertension. After signing informed consent, the patient underwent a Lexiscan stress test with nuclear imaging at rest and following pharmaceutical stress. Baseline EKG: Normal sinus rhythm and within normal limits. Resting heart rate 76, blood pressure 128/68, peak heart rate 96, peak blood pressure 140/80. The patient experienced brief headache, mild shortness of breath without wheezing. She had no chest pain or nausea. Her symptoms resolved spontaneously in under 4 minutes. EKG at peak: showed no ischemic changes. IMPRESSION: No ischemic changes by pharmaceutical stress testing by EKG criteria. Nuclear images reported separately. TD: 10/09/2017 21:17 SIL
[2017-10-17] MEDS ORDERED: IOPAMIDOL-300 100 ML VIAL IVP ONE (14:56)
--- NOTE | 2017-10-20 17:26 | DISCHARGE SUMMARY ---
Physician: Lashon Lara MD DATE OF ADMISSION: 10/08/2017 DATE OF DISCHARGE: 10/09/2017 HISTORY OF PRESENT ILLNESS: This is a 77-year-old white female with a history of COPD on oxygen at night, an ex-cigarette smoker who quit 4 years ago, otherwise has a negative past medical history. The patient was experiencing worsening dyspnea on exertion for a week and then severe shortness of breath. She called her remote operations producer who ordered outpatient testing to rule out pulmonary embolism as well as cardiac testing and both were pending. She then experienced severe air hunger, orthopnea, and called an ambulance and presented to this emergency room. HOSPITAL COURSE AND DISCHARGE DIAGNOSIS: 1. Chronic obstructive pulmonary disease exacerbation. The patient's workup here included a chest x-ray that showed mild hyperinflation , but no other pulmonary disease. She had a CTA of the thorax, which showed no evidence of pulmonary embolism, diffuse moderate central lobular emphysema, right lower lobe atelectasis, hiatal hernia moderate in size, normal heart size, no pericardial effusion, moderate coronary calcification seen. She also underwent duplex Doppler of the legs that showed no evidence of deep venous thrombosis. She was placed in observation for other evaluation. The Echocardiogram done at rest showed normal left ventricular size, left ventricular ejection fraction of 70% to 75% with mild diastolic dysfunction, normal right ventricular size and function, normal calculated pulmonary artery pressure of 27 mmHg. She underwent a pharmaceutical stress test using Lexiscan and nuclear imaging. Her resting EKG was normal. She developed brief shortness of breath that resolved spontaneously. Her EKG at peak had no ischemic changes. The nuclear imaging showed normal left ventricular chamber size at rest and stress, no fixed perfusion defects, no reversible perfusion defects, left ventricular ejection fraction 80%. Patient was managed with supplemental oxygen, nebulizers and intravenous steroids. The impression was that this shortness of breath was worsening of her chronic obstructive pulmonary disease. She was discharged with a Medrol Dosepak for rapid steroid taper as well as her inhalers and advised to follow up with her primary care physician and/or Mobile Equipment Servicer. She had an oxygen saturation study with activity and she did not require oxygen at rest, only continued supplemental oxygen with activity or at bedtime. 2. Hypertension. Her medications were continued. LABORATORIES AND IMAGING: Reviewed and summarized above. ALLERGIES: HONEY BEE VENOM AND FARZANEH INHIBITORS. MEDICATIONS AT DISCHARGE 1. Albuterol inhaler. 2. ProAir inhaler. 3. Norvasc 5 mg daily. 4. Anastrozole 1 mg daily. 5. Baby aspirin daily. 6. Atenolol 50 mg daily. 7. Vitamin D3 daily. 8. Colace daily. 9. Iron gluconate 324 mg b.i.d. 10. Advair Diskus b.i.d. 11. Medrol Dosepak, after that return to her prednisone 5 mg daily. 12. Spiriva 1 inhalation daily. CONDITION AT DISCHARGE: Stable. PHYSICAL EXAMINATION AT DISCHARGE VITAL SIGNS: Blood pressure 156/72, pulse of 75, sinus rhythm, afebrile. Saturation on room air 93%, increased to 96% on 3 liters nasal cannula. HEENT: Hoarseness of voice, otherwise within normal limits. NECK: No JVD or carotid bruits. CHEST: Clear without wheezing or rales. Increased AP diameter. HEART: Heart sounds distant. No audible murmur. ABDOMEN: Soft with positive bowel sounds. Nontender. EXTREMITIES: No clubbing, cyanosis, or edema. NEUROLOGIC: Intact. FOLLOWUP: With her PCP and her Mobile Equipment Servicer in the next 1-2 weeks. CODE STATUS: FULL CODE. Time required to complete this entire discharge, chart review, dictation, prescription medications: 45 minutes. cc: VENESSA Thompson TD: 10/20/2017 16:17 MTDD
== END 2017-10-09 19:00 | disposition home or self-care (01) ==
LOC: EDBD → EDUNIT# → SUPCPDRO 11:57 → ED 11:57 → OBS 14:58
PROVIDERS: ADMIT Internal Medicine; ATTEND Internal Medicine
DX: J44.1 Chronic obstructive pulmonary disease with (acute) exacerbation (principal); I10 Essential (primary) hypertension; M25.471 Effusion, right ankle; M19.90 Unspecified osteoarthritis, unspecified site; Z99.81 Dependence on supplemental oxygen; Z79.52 Long term (current) use of systemic steroids; Z79.51 Long term (current) use of inhaled steroids; Z79.82 Long term (current) use of aspirin; Z87.891 Personal history of nicotine dependence
CPT/HCPCS: 36415; 71046; 71275; 78452; 80053; 83690; 83880; 84484; 85025; 93005; 93017; 93306; 93971; 94640; 94664; 94761; 96374; 96376; 99284; A9270; A9500; G0378; J2785; J7626; Q9967; 99283

== ENCOUNTER 2017-11-10 14:16 | Outpatient (CLI) | payer MEDICARE, OTHER ==
--- NOTE | 2017-11-10 19:34 | Ultrasound Report ---
Procedure Date: 11/10/2017 Accession Number: [id number] / [id number] Procedure: US - Carotid Doppler Complete CPT Code: FULL RESULT: EXAM: BILATERAL CAROTID AND VERTEBRAL ARTERY DUPLEX DOPPLER ULTRASOUND. EXAM DATE: 11/10/2017 03:50 PM CLINICAL HISTORY: Left carotid bruit. History of COPD. COMPARISON: 11/20/2007. TECHNIQUE: Grayscale imaging, color Doppler, and duplex spectral Doppler were used to evaluate the carotid and vertebral arteries bilaterally. Static images were obtained. FINDINGS: Atherosclerotic plaque in the bilateral carotid arteries, left greater than right. Normal antegrade flow is present in bilateral vertebral arteries. VELOCITIES (cm/sec): Right: CCA Prox: PSV 77 cm/sec. CCA Dist: PSV 57 cm/sec, EDV 12 cm/sec. ICA Prox: PSV 60 cm/sec, EDV 12 cm/sec, ICA/CCA ratio 1.0. ICA Mid: PSV 61 cm/sec, EDV 19 cm/sec, ICA/CCA ratio 1.0. ICA Dist: PSV 52 cm/sec, EDV 15 cm/sec, ICA/CCA ratio 91. ECA: PSV 70 cm/sec. Bulb: PSV 67 cm/sec, EDV 12, ICA/CCA ratio 1.1. RVA: 48. RVA flow direction: Antegrade. Left: CCA Prox: PSV 51 cm/sec. CCA Dist: PSV 43 cm/sec, EDV 15 cm/sec. ICA Prox: PSV 94 cm/sec, EDV 28 cm/sec, ICA/CCA ratio 2.1, Degree of stenosis 50-69. ICA Mid: PSV 120 cm/sec, EDV 31 cm/sec, ICA/CCA ratio 2.8,Degree of stenosis 50-69. ICA Dist: PSV 104 cm/sec, EDV 25 cm/sec, ICA/CCA ratio 2.4, Degree of stenosis 50-69. ECA: PSV 150 cm/sec. Bulb: PSV 80 cm/sec, EDV 23, ICA/CCA ratio 1.8. LVA: 60. RVA flow direction: Antegrade. ICA diameter stenosis: Right: <50% by velocity and <70% by NASCET criteria. Left: <50% by velocity and <70% by NASCET criteria. IMPRESSION: 1. Atherosclerotic plaque in the bilateral carotid arteries, left greater than right. 2. In the right carotid artery there are no elevated carotid artery velocities to suggest hemodynamically significant stenosis. 3. In the left carotid artery there are elevated ICA/CCA ratios indicating 50-69% stenosis. 4. Normal antegrade flow is present in bilateral vertebral arteries. General Recommendations: Stenosis =50% ICA - Follow-up ultrasound 6-12 months Stenosis <50% ICA - High Risk Patient with plaque - Follow-up ultrasound 1-2 years Normal Study but High Risk Patient - Follow-up ultrasound 3-5 years Management recommendations and diagnostic criteria are based on current IAC endorsed standards in Carotid Artery Stenosis: Grayscale and Doppler Ultrasound Diagnosis. Validated velocity measurements with angiographic measurements and velocity criteria are extrapolated from diameter data as defined by the Society of Radiologists in Ultrasound Consensus Conference Radiology 2003; 229;340-346. RADIA
== END 2017-11-10 14:17 | disposition home or self-care (01) ==
LOC: DI 14:16
PROVIDERS: ATTEND Nurse Practitioner Family
DX: R09.89 Other specified symptoms and signs involving the circulatory and respiratory systems (principal); J44.9 Chronic obstructive pulmonary disease, unspecified; I65.23 Occlusion and stenosis of bilateral carotid arteries
CPT/HCPCS: 93880

== ENCOUNTER 2018-03-31 22:28 | Outpatient (CLI) | payer MEDICARE, OTHER | END 2018-03-31 22:29 | disposition critical access hospital (66) | LOC: EMS 22:28 | PROVIDERS: ATTEND Surgery | DX: R06.00 Dyspnea, unspecified (principal); R41.82 Altered mental status, unspecified | CPT/HCPCS: A0425; A0429 ==

== ENCOUNTER 2018-03-31 22:53 | Emergency (ER) | payer MEDICARE, OTHER ==
[2018-03-31] MEDS ORDERED: DEXAMETHASONE 10 MG/ML VIAL PO STA (23:30)
--- NOTE | 2018-03-31 23:45 | ED Physician Documentation ---
PD HPI DYSPNEA - Stated complaint Stated Complaint: SOA - Chief complaint Chief Complaint: Resp - History obtained from History obtained from: Patient - History of Present Illness Timing - onset: How many days ago (2) Timing - onset during: Rest Timing - details: Now resolved Improved by: Inhaler/neb Associated symptoms: Fever (yesterday) Similar symptoms before: Diagnosis (Oxygen-dependent COPD.) - Additional information Additional information: The patient 77-year-old female with a history of oxygen-dependent COPD, who presents via ambulance complaining of shortness of breath. Her symptoms started 2 days ago, and "really scared me" today. She reports low-grade fever yesterday. She denies cough, chest pain, nausea or vomiting. She quit smoking cigarettes 5 years ago. She uses albuterol inhaler on a daily basis, and her symptoms seem to respond to albuterol treatment. Review of her medical record reveals hospitalization in September 2017. She had a negative nuclear stress test and a negative CT angiogram at that time. Review of Systems Constitutional: reports: Fever (Low-grade fever yesterday.) Ears: denies: Tinnitus/ringing Nose: denies: Congestion Throat: denies: Sore throat Cardiac: denies: Chest pain / pressure, Palpitations Respiratory: reports: Dyspnea. denies: Cough GI: denies: Abdominal Pain, Nausea, Vomiting : denies: Dysuria Skin: denies: Rash Musculoskeletal: denies: Back pain, Extremity swelling Neurologic: denies: Focal weakness, Numbness, Headache PD PAST MEDICAL HISTORY - Past Medical History Cardiovascular: Hypertension Respiratory: COPD Endocrine/Autoimmune: None GI: Other : None, Kidney stones HEENT: None Psych: None Musculoskeletal: Osteoarthritis Derm: None - Past Surgical History Past Surgical History: Yes General: Appendectomy Ortho: Rotator cuff repair, Arthroscopic surgery /PHARMACY RESOURCE TECH: Dilation and currettage, Other HEENT: Cataracts, Tonsil/Adenoidectomy - Present Medications Home Medications: Ambulatory Orders Medication Instructions Recorded Confirmed Cholecalciferol (Vitamin D3) 1,000 unit PO DAILY 12/13/12 02/05/18 [Vitamin D3] Tiotropium [Spiriva] 1 puffs INH DAILY 12/13/12 02/05/18 amLODIPine [Norvasc] 5 mg PO DAILY 12/13/12 02/05/18 Aspirin [Aspirin EC] 81 mg ORAL DAILY 12/16/13 02/05/18 Atenolol 50 mg PO DAILY 03/27/15 02/05/18 Fluticasone/Salmeterol [Advair 1 puffs INH BID 03/29/15 02/05/18 100-50 Diskus] Ferrous Gluconate 324 mg PO BID 07/25/16 02/05/18 Albuterol Sulfate [Proair Hfa 1 - 2 puffs INH Q4H PRN 10/08/17 02/05/18 Inhaler] Anastrozole 1 mg PO DAILY 10/08/17 02/05/18 Docusate Sodium 100 mg PO DAILY PRN 10/08/17 02/05/18 predniSONE [Deltasone] 5 mg PO DAILY 10/08/17 02/05/18 Albuterol 2.5 mg INH TID #60 neb 10/09/17 02/05/18 Methylprednisolone [Medrol] 4 mg PO UD #1 tab.ds.pk 10/09/17 02/05/18 predniSONE [Prednisone] 40 mg PO DAILY #10 tablet 04/01/18 - Allergies Allergies/Adverse Reactions: Allergies Allergy/AdvReac Type Severity Reaction Status Date / Time venom-honey bee Allergy Severe ANAPHYLAXIS Verified 03/30/17 12:35 [bee venom (honey bee)] FARZANEH Inhibitors Allergy TONGUE Verified 03/30/17 12:35 SWELLING - Social History Does the pt smoke?: No Smoking Status: Former smoker Does the pt drink ETOH?: Yes Does the pt have substance abuse?: No - Immunizations Immunizations are current?: Yes - POLST Patient has POLST: No PD ED PE NORMAL - Vitals Vital signs reviewed: Yes (normal) - General General: Alert and oriented X 3, Other (Somewhat frail-appearing elderly female.) - HEENT HEENT: Atraumatic, Moist mucous membranes, Pharynx benign - Neck Neck: No adenopathy, No JVD - Cardiac Cardiac: RRR - Respiratory Respiratory: No respiratory distress, Clear bilaterally, Other (No apparent respiratory difficulty, on 2 L supplemental oxygen by nasal cannula.) - Abdomen Abdomen: Soft, Non tender - Back Back: No CVA TTP - Derm Derm: No rash - Extremities Extremities: No edema, No calf tenderness / cord - Neuro Neuro: Alert and oriented X 3, No motor deficit, Normal speech Results - Vitals Vitals: Oxygen O2 Source [] Room air O2 Source Nasal cannula Oxygen Flow Rate 2 - EKG (time done) 23:38 Rate: Rate (enter#) (83) Rhythm: NSR Mckean: Normal Intervals: Normal VT QRS: Normal Ischemia: Normal ST segments Computer interpretation: Agree with computer - Labs Labs: Laboratory Tests 03/31/18 03/31/18 03/31/18 23:44 23:44 23:44 WBC 8.7 RBC 5.21 Hgb 14.1 Hct 43.4 MCV 83.4 MCH 27.2 MCHC 32.6 RDW 17.6 H Plt Count 207 MPV 8.2 Neut # (Auto) 6.8 H Lymph # (Auto) 0.8 L Bates # (Auto) 1.0 Eos # (Auto) 0.0 Baso # (Auto) 0.1 Absolute Nucleated RBC 0.00 Nucleated RBC % 0.0 Sodium 137 Potassium 3.6 Chloride 101 Carbon Dioxide 26 Anion Gap 10.0 BUN 21 H Creatinine 1.2 H Estimated GFR (MDRD) 44 L Glucose 107 H Calcium 9.5 Total Bilirubin 0.9 AST 18 ALT 15 Alkaline Phosphatase 43 Troponin I < 0.04 Total Protein 6.7 Albumin 4.0 Globulin 2.7 Albumin/Globulin Ratio 1.5 Lipase 35 - Rads (name of study) 1-view CXR Radiology: Prelim report reviewed, EMP read contemporaneously, See rad report (No acute pulmonary process.) PD MEDICAL DECISION MAKING - ED course Complexity details: reviewed old records, reviewed results, re-evaluated p atient, considered differential, d/w patient ED course: The patient's presentation is most consistent with acute exacerbation of COPD. There is no clinical evidence of pneumonia or congestive heart failure, and her chest x-ray reveals no evidence of acute pulmonary abnormality. Electrocardiogram is normal, as is troponin level. I doubt pulmonary embolus. A mucous plug is a possible etiology for the patient's distressful symptoms at home, which have subsequently completely cleared at this time. Treatment in the emergency department included administration of dexamethasone 5 mg orally. She is being discharged with prescription for 5 day course of prednisone. I discussed with her the likely etiology of her symptoms, outpatient treatment and follow-up, as well as potentially worrisome signs or symptoms that should prompt reevaluation in the emergency department. Departure - Departure Disposition: Home, Self Care Clinical Impression: COPD exacerbation Condition: Stable Instructions: ED COPD Flare Follow-Up: Anayeli Rod ARNP [Primary Care Provider] - Prescriptions: predniSONE [Prednisone] 40 mg PO DAILY #10 tablet Comments: Continue pro-air as previously prescribed. You can take prednisone for 5 days as prescribed. Follow-up with your primary physician within 1-2 weeks. Call to schedule an appointment. Return to the emergency department if you develop increasing difficulty breathing, or otherwise worsening symptoms. Discharge Date/Time: 04/01/18 02:25
[2018-03-31 23:52] LABS: BASOPHILS # (AUTO) 0.1 10^3/uL (0.0-0.1); BASOPHILS % (AUTO) 0.8 %; EOSINOPHILS % (AUTO) 0.6 %; HGB - HEMOGLOBIN 14.1 g/dL (12.0-16.0); LYMPHOCYTES # (AUTO) 0.8 10^3/uL (1.5-3.5); LYMPHOCYTES % (AUTO) 9.3 %; MEAN CORPUSCULAR HEMOGLOBIN 27.2 pg (27.0-31.0); MEAN CORPUSCULAR HGB CONC 32.6 g/dL (32.0-36.0); MEAN CORPUSCULAR VOLUME 83.4 fL (81.0-99.0); MEAN PLATELET VOLUME 8.2 fL (7.9-10.8); NEUTROPHILS # (AUTO) 6.8 10^3/uL (1.5-6.6); NEUTROPHILS % (AUTO) 78.3 %; PLT - PLATELET COUNT 207 10^3/uL (130-450); RED BLOOD COUNT 5.21 10^6/uL (4.20-5.40); RED CELL DISTRIBUTION WIDTH 17.6 % (12.0-15.0); WHITE BLOOD COUNT 8.7 x10^3/uL (4.8-10.8)
[2018-04-01 00:04] LABS: ALBUMIN/GLOBULIN RATIO 1.5 (1.0-2.2); BILIRUBIN,TOTAL 0.9 mg/dL (0.2-1.0); CALCIUM 9.5 mg/dL (8.5-10.3); CREATININE 1.2 mg/dL (0.4-1.0); TOTAL PROTEIN 6.7 g/dL (6.7-8.2)
--- NOTE | 2018-04-01 00:09 | XRAY Report ---
Reason: dyspnea Procedure Date: 03/31/2018 Accession Number: [id number] / [id number] Procedure: XR - Chest 1 View X-Ray CPT Code: 20192 FULL RESULT: EXAM: CHEST RADIOGRAPHY EXAM DATE: 03/31/2018 11:55 PM. CLINICAL HISTORY: Dyspnea. COMPARISON: CHEST 2 VIEW 10/08/2017 12:32 PM. TECHNIQUE: 1 view. FINDINGS: Lungs/Pleura: No focal opacities evident. No pleural effusion. No pneumothorax. Mediastinum: Within exam limitations, the cardiomediastinal contour is normal. Other: Hiatal hernia. IMPRESSION: Hiatal hernia. No acute pulmonary process. RADIA
[2018-04-01 03:35] VITALS: BP 124/86
== END 2018-04-01 02:25 | disposition home or self-care (01) ==
LOC: EDUNIT# → ED 22:53
DX: J44.1 Chronic obstructive pulmonary disease with (acute) exacerbation (principal); I10 Essential (primary) hypertension; Z99.81 Dependence on supplemental oxygen; Z87.891 Personal history of nicotine dependence
CPT/HCPCS: 36415; 71045; 80053; 83690; 84484; 85025; 93005; 99283; 99284

== ENCOUNTER 2018-05-14 12:58 | Outpatient (CLI) | payer MEDICARE, OTHER ==
--- NOTE | 2018-05-14 16:15 | Ultrasound Report ---
Reason: CAROTID BRUIT,LEFT Procedure Date: 05/14/2018 Accession Number: [id number] / [id number] Procedure: US - Carotid Doppler Complete CPT Code: FULL RESULT: EXAM: BILATERAL CAROTID AND VERTEBRAL ARTERY DUPLEX DOPPLER ULTRASOUND: EXAM DATE: 05/14/2018 02:20 PM CLINICAL HISTORY: Carotid bruit, left. COMPARISON: Carotid doppler complete 11/10/2017 3:04 PM. TECHNIQUE: Grayscale imaging, color Doppler, and duplex spectral Doppler were used to evaluate the carotid and vertebral arteries bilaterally. Static images were obtained. FINDINGS: Bilateral atherosclerotic disease most pronounced at the bifurcations is again seen, visually approximately 50% in the left carotid system. Normal antegrade flow is present in bilateral vertebral arteries. VELOCITIES (cm/sec): VELOCITIES: Right: CCA Mid: PSV 54 cm/sec. CCA Dist: PSV 39 cm/sec. ICA Prox: PSV 66 cm/sec, EDV 16 cm/sec. ICA Mid: PSV 47 cm/sec, EDV 13 cm/sec. ICA Dist: PSV 39 cm/sec, EDV 13 cm/sec. ECA: PSV 62 cm/sec. Vertebral Artery: PSV 41 cm/sec. RVA flow direction: xAntegrade. ICA/CCA Ratio: 1.22. Left: CCA Mid: PSV 36 cm/sec. CCA Dist: PSV 39 cm/sec. ICA Prox: PSV 114 cm/sec, EDV 27 cm/sec. ICA Mid: PSV 70 cm/sec, EDV 18 cm/sec. ICA Dist: PSV 98 cm/sec, EDV 22 cm/sec. ECA: PSV 462 cm/sec. Vertebral Artery: PSV 35 cm/sec. LVA flow direction: xAntegrade. ICA/CCA Ratio: 2.92. ICA diameter stenosis: Right: <50% by velocity and <70% by NASCET criteria. Left: 50-69% by velocity and ratio and <70% by NASCET criteria. IMPRESSION: 1. Mild right carotid artery plaquing and at least moderate left carotid artery plaquing subjectively. 2. In the right carotid artery there are no elevated carotid artery velocities to suggest hemodynamically significant stenosis. 3. Left carotid artery demonstrates 50-69% stenosis by velocity criteria when taking in account ICA/CCA ratio. 4. Normal antegrade flow is present in bilateral vertebral arteries. General Recommendations: Stenosis =50% ICA - Follow-up ultrasound 6-12 months Stenosis <50% ICA - High Risk Patient with plaque - Follow-up ultrasound 1-2 years Normal Study but High Risk Patient - Follow-up ultrasound 3-5 years Management recommendations and diagnostic criteria are based on current IAC endorsed standards in Carotid Artery Stenosis: Grayscale and Doppler Ultrasound Diagnosis. Validated velocity measurements with angiographic measurements and velocity criteria are extrapolated from diameter data as defined by the Society of Radiologists in Ultrasound Consensus Conference Radiology 2003; 229;340-346. RADIA
== END 2018-05-14 12:59 | disposition home or self-care (01) ==
LOC: DI 12:58
PROVIDERS: ATTEND Nurse Practitioner Family
DX: I65.22 Occlusion and stenosis of left carotid artery (principal)
CPT/HCPCS: 93880

== ENCOUNTER 2018-05-22 12:37 | Outpatient (CLI) | payer MEDICARE, OTHER ==
--- NOTE | 2018-05-23 08:42 | Mammography Report ---
Reason: Annual Screening Procedure Date: 05/22/2018 Accession Number: [id number] / [id number] Procedure: LU - Screening Mammo Dig Bilat CPT Code: FULL RESULT: EXAM: Screening Mammo Dig Bilat DATE: 05/22/2018 1:40 PM CLINICAL HISTORY: Screening encounter. History of nulliparity. Personal history of left breast cancer status post lumpectomy and radiation. TECHNIQUE: Bilateral CC and MLO views were obtained. COMPARISON: 12/26/2016 through 10/03/2012. FINDINGS: The breasts demonstrate heterogeneously dense fibroglandular parenchyma bilaterally. Postsurgical changes in the left breast are redemonstrated. There are typically benign calcifications. The previously seen seroma in the left breast has now essentially resolved, no longer appreciated. No suspicious masses, clustered microcalcifications, or regions of architectural distortion are identified. IMPRESSION: Benign findings RECOMMENDATION: Routine annual screening unless otherwise clinically indicated. BIRADS CATEGORY 2: Benign findings STANDARD QUALIFYING STATEMENTS: 1. This examination was not reviewed with the aid of Computer-Aided Detection (CAD). 2. A negative or benign imaging report should not preclude biopsy if clinically suspicious findings are present. 3. Dense breasts may obscure an underlying neoplasm. 4. This examination was reviewed without the aid of 3D breast imaging (tomosynthesis).
== END 2018-05-22 12:38 | disposition home or self-care (01) ==
LOC: DI 12:37
PROVIDERS: ATTEND Internal Medicine Hematology & Oncology
DX: Z12.31 Encounter for screening mammogram for malignant neoplasm of breast (principal); Z85.3 Personal history of malignant neoplasm of breast
CPT/HCPCS: 77067

== ENCOUNTER 2018-11-14 13:12 | Outpatient (CLI) | payer MEDICARE, OTHER ==
[~2018-11-14 13:12] MED LIST: ALBUTEROL NEB 2.5 MG/3 ML INH SCH
== END 2018-11-14 13:13 | disposition home or self-care (01) ==
LOC: RT 13:12
PROVIDERS: ATTEND Registered Nurse
DX: J44.9 Chronic obstructive pulmonary disease, unspecified (principal); Z99.81 Dependence on supplemental oxygen
CPT/HCPCS: 94060

== ENCOUNTER 2020-07-20 14:36 | Outpatient (CLI) | payer MEDICARE, OTHER ==
--- OUTSIDE RECORDS SUMMARY | 2020-07-27 23:07 | EXTERNAL MEDICAL SUMMARY RPT | Continuity of Care Document ---
:1940 Demographics Phone Unavailable Preferred Language Unknown Marital Status Unknown Samaritan Affiliation Unknown Race Unknown Ethnic Group Unknown Author Organization [facility] Address [address] [id number] Phone Social History date description facility [phone]
== END 2020-07-20 14:37 | disposition critical access hospital (66) ==
LOC: EMS 14:36
PROVIDERS: ATTEND Emergency Medicine
DX: R53.1 Weakness (principal); R63.0 Anorexia
CPT/HCPCS: A0425; A0429

== ENCOUNTER 2020-07-20 15:04 | Inpatient (IN) | payer MEDICARE, OTHER ==
--- NOTE | 2020-07-20 15:20 | ED Physician Documentation ---
PD HPI DYSPNEA - Stated complaint Stated Complaint: GENERAL WEAKNESS - History obtained from History obtained from: Patient, EMS - Additional information Additional information: This is a 79-year-old woman with history of COPD, oxygen dependent at 2.5 L/min, erythrocytosis, iron deficiency anemia, history of breast cancer. She states that 9 days ago she had her first Covid shot and ever since then has been short of breath and confused. She denies any cough. There is no pedal edema or calf pain. There is no orthopnea. She just feels much more short of breath than normal. She has not changed her usual oxygen. She lives alone. Review of Systems Ten Systems: 10 systems reviewed and negative Constitutional: reports: Fatigue. denies: Fever, Chills Nose: denies: Rhinorrhea / runny nose Throat: denies: Sore throat Cardiac: denies: Chest pain / pressure, Palpitations Respiratory: reports: Dyspnea. denies: Cough PD PAST MEDICAL HISTORY - Past Medical History Cardiovascular: Hypertension Respiratory: COPD Endocrine/Autoimmune: None GI: Other : None, Kidney stones HEENT: None Psych: None Musculoskeletal: Osteoarthritis Derm: None - Past Surgical History Past Surgical History: Yes General: Appendectomy Ortho: Rotator cuff repair, Arthroscopic surgery /[employer]: Dilation and currettage, Other HEENT: Cataracts, Tonsil/Adenoidectomy - Present Medications Home Medications: Ambulatory Orders Medication Instructions Recorded Confirmed Cholecalciferol (Vitamin D3) 1,000 unit PO DAILY 12/13/12 07/20/20 [Vitamin D3] Tiotropium [Spiriva] 1 puffs INH DAILY 12/13/12 07/20/20 amLODIPine [Norvasc] 5 mg PO DAILY 12/13/12 07/20/20 Aspirin [Aspirin EC] 81 mg ORAL DAILY 12/16/13 07/20/20 Atenolol 50 mg PO DAILY 03/27/15 07/20/20 Ferrous Gluconate 324 mg PO BID 07/25/16 07/20/20 Albuterol Sulfate [Proair Hfa 1 - 2 puffs INH Q4H PRN 10/08/17 07/20/20 Inhaler] Docusate Sodium 100 mg PO DAILY PRN 10/08/17 02/18/19 predniSONE [Deltasone] 10 mg PO DAILY 10/08/17 07/20/20 Anastrozole 1 mg ORAL DAILY 07/20/20 07/20/20 Calcium Carb/Magnesium Hydrox 1 each PO DAILY 07/20/20 07/20/20 [Antacid Extra Strngth Tab Chew] Fluticasone/Salmeterol [Advair 1 each IH BID 07/20/20 07/20/20 100-50 Diskus] Hydroxyurea [Hydrea] 500 mg PO DAILY 07/20/20 07/20/20 Potassium Chloride 10 meq PO DAILY 07/20/20 07/20/20 - Allergies Allergies/Adverse Reactions: Allergies Allergy/AdvReac Type Severity Reaction Status Date / Time venom-honey bee Allergy Severe ANAPHYLAXIS Verified 02/18/19 14:28 [bee venom (honey bee)] FARZANEH Inhibitors Allergy TONGUE Verified 02/18/19 14:28 SWELLING - Social History Does the pt smoke?: No Smoking Status: Former smoker Does the pt drink ETOH?: Yes Does the pt have substance abuse?: No - Immunizations Immunizations are current?: Yes - POLST Patient has POLST: No PD ED PE NORMAL - Vitals Vital signs reviewed: Yes - General General: No acute distress, Other (Confused, Alert/orient to person/place not time or where she lives) - HEENT HEENT: PERRL, EOMI - Neck Neck: Supple, no meningeal sign, No bony TTP - Cardiac Cardiac: RRR, No murmur - Respiratory Respiratory: Other (Slightly labored breathing, diminished throughout) - Abdomen Abdomen: Non tender - Back Back: No CVA TTP, No spinal TTP - Derm Derm: Normal color, Warm and dry - Extremities Extremities: No edema, No calf tenderness / cord - Neuro Neuro: No motor deficit, No sensory deficit, Normal speech, Other (no asterixis) Eye Opening: Spontaneous Motor: Obeys Commands Verbal: Confused GCS Score: 14 Results - Vitals Vitals: Vital Signs - 24 hr 07/20/20 07/20/20 07/20/20 15:10 15:24 15:53 Temperature 36.6 C Heart Rate 96 92 96 Respiratory 36 H 14 22 Rate Blood Pressure 187/138 H 149/104 H 173/86 H O2 Saturation 93 100 96 07/20/20 07/20/20 18:38 21:21 Temperature 36.8 C Heart Rate 92 96 Respiratory 14 18 Rate Blood Pressure 138/110 H 158/94 H O2 Saturation 98 100 Oxygen O2 Source [With Activity] Room air O2 Source Nasal cannula Oxygen Flow Rate 2 - EKG (time done) 1525 Rate: Rate (enter#) (94) Rhythm: NSR (w pac), LAE [place]: Normal Intervals: Normal CO QRS: Low voltage Ischemia: Non specific changes. No: ST elevation c/w ischemia, ST depression - Labs Labs: Laboratory Tests 07/20/20 07/20/20 07/20/20 15:50 15:50 15:50 WBC 12.5 H RBC 5.49 H Hgb 15.4 Hct 48.1 H MCV 87.6 MCH 28.1 MCHC 32.0 RDW 13.4 Plt Count 206 MPV 11.7 H Neut # (Auto) 11.0 H Lymph # (Auto) 0.4 L Wilson # (Auto) 0.9 Eos # (Auto) 0.0 Baso # (Auto) 0.1 Absolute Nucleated RBC 0.00 Nucleated RBC % 0.0 VBG pH VBG pCO2 VBG pO2 VBG HCO3 VBG Total CO2 VBG O2 Saturation VBG Base Excess Sodium 138 Potassium 4.1 Chloride 94 L Carbon Dioxide 23 Anion Gap 21.0 H BUN 32 H Creatinine 1.4 H Estimated GFR (MDRD) 36 L Glucose 129 H Calcium 10.2 Ammonia Total Creatine Kinase Troponin I High Sens 32.5 H* B-Natriuretic Peptide TSH Urine Color Urine Clarity Urine pH Ur Specific [place] Urine Protein Urine Glucose (UA) Urine Ketones Urine Occult Blood Urine Nitrite Urine Bilirubin Urine Urobilinogen Ur Leukocyte Esterase Ur Microscopic Review Urine Culture Comments Nasal Adenovirus (PCR) Nasal B. parapertussis DNA (PCR) Nasal Coronavir 229E PCR Nasal Coronavir HKU1 PCR Nasal Coronavir NL63 PCR Nasal Coronavir OC43 PCR Nasal Enterovir/Rhinovir PCR Nasal Influenza B PCR Nasal Influenza A PCR Nasal Parainfluen 1 PCR Nasal Parainfluen 2 PCR Nasal Parainfluen 3 PCR Nasal Parainfluen 4 PCR Nasal RSV (PCR) Nasal B.pertussis DNA PCR Nasal C.pneumoniae (PCR) Armani Human Metapneumo PCR Nasal M.pneumoniae (PCR) Nasal SARS-CoV-2 (PCR) 07/20/20 07/20/20 07/20/20 15:50 15:50 15:50 WBC RBC Hgb Hct MCV MCH MCHC RDW Plt Count MPV Neut # (Auto) Lymph # (Auto) Wilson # (Auto) Eos # (Auto) Baso # (Auto) Absolute Nucleated RBC Nucleated RBC % VBG pH 7.307 L VBG pCO2 45.1 VBG pO2 36.3 VBG HCO3 22.0 L VBG Total CO2 23.4 L VBG O2 Saturation 66.4 VBG Base Excess -4.3 L Sodium Potassium Chloride Carbon Dioxide Anion Gap BUN Creatinine Estimated GFR (MDRD) Glucose Calcium Ammonia Total Creatine Kinase Troponin I High Sens B-Natriuretic Peptide 45 TSH Urine Color Urine Clarity Urine pH Ur Specific [place] Urine Protein Urine Glucose (UA) Urine Ketones Urine Occult Blood Urine Nitrite Urine Bilirubin Urine Urobilinogen Ur Leukocyte Esterase Ur Microscopic Review Urine Culture Comments Nasal Adenovirus (PCR) NOT DETECTED Nasal B. parapertussis DNA (PCR) NOT DETECTED Nasal Coronavir 229E PCR NOT DETECTED Nasal Coronavir HKU1 PCR NOT DETECTED Nasal Coronavir NL63 PCR NOT DETECTED Nasal Coronavir OC43 PCR NOT DETECTED Nasal Enterovir/Rhinovir PCR NOT DETECTED Nasal Influenza B PCR NOT DETECTED Nasal Influenza A PCR NOT DETECTED Nasal Parainfluen 1 PCR NOT DETECTED Nasal Parainfluen 2 PCR NOT DETECTED Nasal Parainfluen 3 PCR NOT DETECTED Nasal Parainfluen 4 PCR NOT DETECTED Nasal RSV (PCR) NOT DETECTED Nasal B.pertussis DNA PCR NOT DETECTED Nasal C.pneumoniae (PCR) NOT DETECTED Armani Human Metapneumo PCR NOT DETECTED Nasal M.pneumoniae (PCR) NOT DETECTED Nasal SARS-CoV-2 (PCR) NOT DETECTED 07/20/20 07/20/20 07/20/20 15:50 15:50 19:14 WBC RBC Hgb Hct MCV MCH MCHC RDW Plt Count MPV Neut # (Auto) Lymph # (Auto) Wilson # (Auto) Eos # (Auto) Baso # (Auto) Absolute Nucleated RBC Nucleated RBC % VBG pH VBG pCO2 VBG pO2 VBG HCO3 VBG Total CO2 VBG O2 Saturation VBG Base Excess Sodium Potassium Chloride Carbon Dioxide Anion Gap BUN Creatinine Estimated GFR (MDRD) Glucose Calcium Ammonia Total Creatine Kinase 199 Troponin I High Sens B-Natriuretic Peptide TSH 1.16 Urine Color YELLOW Urine Clarity CLEAR Urine pH 5.0 Ur Specific [place] 1.010 Urine Protein TRACE Urine Glucose (UA) NEGATIVE Urine Ketones 40 H Urine Occult Blood NEGATIVE Urine Nitrite NEGATIVE Urine Bilirubin NEGATIVE Urine Urobilinogen 0.2 (NORMAL) Ur Leukocyte Esterase NEGATIVE Ur Microscopic Review NOT INDICATED Urine Culture Comments NOT INDICATED Nasal Adenovirus (PCR) Nasal B. parapertussis DNA (PCR) Nasal Coronavir 229E PCR Nasal Coronavir HKU1 PCR Nasal Coronavir NL63 PCR Nasal Coronavir OC43 PCR Nasal Enterovir/Rhinovir PCR Nasal Influenza B PCR Nasal Influenza A PCR Nasal Parainfluen 1 PCR Nasal Parainfluen 2 PCR Nasal Parainfluen 3 PCR Nasal Parainfluen 4 PCR Nasal RSV (PCR) Nasal B.pertussis DNA PCR Nasal C.pneumoniae (PCR) Armani Human Metapneumo PCR Nasal M.pneumoniae (PCR) Nasal SARS-CoV-2 (PCR) 07/20/20 07/20/20 20:09 21:00 WBC RBC Hgb Hct MCV MCH MCHC RDW Plt Count MPV Neut # (Auto) Lymph # (Auto) Wilson # (Auto) Eos # (Auto) Baso # (Auto) Absolute Nucleated RBC Nucleated RBC % VBG pH VBG pCO2 VBG pO2 VBG HCO3 VBG Total CO2 VBG O2 Saturation VBG Base Excess Sodium Potassium Chloride Carbon Dioxide Anion Gap BUN Creatinine Estimated GFR (MDRD) Glucose Calcium Ammonia 11.0 Total Creatine Kinase Troponin I High Sens 42.5 H* B-Natriuretic Peptide TSH Urine Color Urine Clarity Urine pH Ur Specific [place] Urine Protein Urine Glucose (UA) Urine Ketones Urine Occult Blood Urine Nitrite Urine Bilirubin Urine Urobilinogen Ur Leukocyte Esterase Ur Microscopic Review Urine Culture Comments Nasal Adenovirus (PCR) Nasal B. parapertussis DNA (PCR) Nasal Coronavir 229E PCR Nasal Coronavir HKU1 PCR Nasal Coronavir NL63 PCR Nasal Coronavir OC43 PCR Nasal Enterovir/Rhinovir PCR Nasal Influenza B PCR Nasal Influenza A PCR Nasal Parainfluen 1 PCR Nasal Parainfluen 2 PCR Nasal Parainfluen 3 PCR Nasal Parainfluen 4 PCR Nasal RSV (PCR) Nasal B.pertussis DNA PCR Nasal C.pneumoniae (PCR) Armani Human Metapneumo PCR Nasal M.pneumoniae (PCR) Nasal SARS-CoV-2 (PCR) - Rads (name of study) CTPA Radiology: EMP read contemporaneously (NAD) CT Head Radiology: EMP read contemporaneously (NAD) PD MEDICAL DECISION MAKING - ED course ED course: 79 yo woman presents by EMS after covid shot with encephaolopathy and weakness. Increased SOB. No clear cause on initial workup. Spoke with contact Patricia Ashford ([phone]) by phone. No hx dementia. Spoke with Dr. Jenkins for admission, he would like the addition of CK, TSH, and ammonia to the labs. These were ordered and unremarkable. Also questioned the utility of lumbar puncture. I discussed this with the patient and she refused. After more discussion with hospitalist we decided to give her some stress dose steroids. She is on steroids chronically. And some IV fluids. Departure - Departure Disposition: ED Place in Observation Clinical Impression: Dyspnea on exertion, COPD exacerbation, Acute kidney injury, Confusion Condition: Serious Discharge Date/Time: 07/20/20 22:27
[2020-07-20 16:06] LABS: BASOPHILS # (AUTO) 0.1 10^3/uL (0.0-0.1); BASOPHILS % (AUTO) 0.6 %; HCT - HEMATOCRIT 48.1 % (37.0-47.0); HGB - HEMOGLOBIN 15.4 g/dL (12.0-16.0); LYMPHOCYTES # (AUTO) 0.4 10^3/uL (1.5-3.5); LYMPHOCYTES % (AUTO) 3.2 %; MEAN CORPUSCULAR HEMOGLOBIN 28.1 pg (27.0-31.0); MEAN CORPUSCULAR VOLUME 87.6 fL (81.0-99.0); MEAN PLATELET VOLUME 11.7 fL (7.9-10.8); MONOCYTES # (AUTO) 0.9 10^3/uL (0.0-1.0); MONOCYTES % (AUTO) 6.9 %; NEUTROPHILS % (AUTO) 87.9 %; PLT - PLATELET COUNT 206 10^3/uL (130-450); RED BLOOD COUNT 5.49 10^6/uL (4.20-5.40); RED CELL DISTRIBUTION WIDTH 13.4 % (12.0-15.0); VBG BASE EXCESS -4.3 mmol/L (-2 - +2); VBG PCO2 45.1 mmHg (41-51); VBG PH 7.307 (7.31-7.41); VBG PO2 36.3 mmHg (25-47); VBG TOTAL CO2 23.4 mmol/L (24-29); WHITE BLOOD COUNT 12.5 x10^3/uL (4.8-10.8)
[2020-07-20 16:07] LABS: VBG OXYGEN SATURATION 66.4 % (60-80)
[2020-07-20 16:08] LABS: CALCIUM 10.2 mg/dL (8.5-10.3); CREATININE 1.4 mg/dL (0.4-1.0); POTASSIUM 4.1 mmol/L (3.5-5.0)
[2020-07-20 17:11] LABS: B. PARAPERTUSSIS- RESP PCR PAN NOT DETECTED; B. PERTUSSIS- RESP PCR PANEL NOT DETECTED; C. PNEUMONIAE- RESP PCR PANEL NOT DETECTED; CORONAVIRUS 229E-RESP PCR NOT DETECTED; CORONAVIRUS HKU1-RESP PCR NOT DETECTED; CORONAVIRUS NL63-RESP PCR NOT DETECTED; CORONAVIRUS OC43-RESP PCR NOT DETECTED; HUMAN METAPNEUMOVIRUS NOT DETECTED; INFLUENZA A- RESP PCR PANEL NOT DETECTED; INFLUENZA B - RESP PCR PANEL NOT DETECTED; M. PNEUMONIAE- RESP PCR PANEL NOT DETECTED; PARAINFLUENZA VIRUS 1 NOT DETECTED; PARAINFLUENZA VIRUS 2 NOT DETECTED; PARAINFLUENZA VIRUS 3 NOT DETECTED; PARAINFLUENZA VIRUS 4 NOT DETECTED; RHINOVIRUS/ENTEROVIRUS NOT DETECTED; RSV- RESP PCR PANEL NOT DETECTED; SARS-CoV-2 -RESP PCR PANEL NOT DETECTED
[2020-07-20] MEDS ORDERED: IOVERSOL 320 100 ML VIAL IVP ONE (17:55)
--- NOTE | 2020-07-20 18:03 | CT Report ---
PROCEDURE: ANGIO CHEST W/WO INDICATIONS: Dyspnea, PE protocol CONTRAST: IV CONTRAST: Optiray 320 ml: 36 PO CONTRAST: *NO PO CONTRAST TECHNIQUE: After the administration of intravenous contrast, 2 mm thick sections acquired from the pulmonary api kelechi to the posterior costophrenic angles. 3-dimensional maximum intensity projection (MIP) coronal a nd sagittal reformats were then acquired through the thorax. For radiation dose reduction, the follow ing was used: automated exposure control, adjustment of mA and/or kV according to patient size. COMPARISON: 10/08/2017. FINDINGS: Image quality: Excellent. Pulmonary arteries: Pulmonary arteries are normal in size, and demonstrate no intraluminal filling d efects to suggest central pulmonary embolism. Lungs and pleura: Emphysematous change. Lungs are clear. No pleural effusions or pneumothorax. Cent ral and peripheral airways are patent. Mediastinum: Heart size is normal, without pericardial effusion. No mediastinal or hilar adenopathy . Thoracic aorta is normal in caliber and enhancement. Calcified aortic plaque. Esophagus is normal in caliber. Large hiatal hernia. Bones and chest wall: No suspicious bony lesions. Prior bilateral rib fractures. The thyroid is nor mal. No axillary or supraclavicular adenopathy. Abdomen: Left renal cyst partially visualized. Visualized upper abdominal solid organs appear normal in the early arterial phase of enhancement. IMPRESSION: 1. No pulmonary embolism. 2. No acute airspace opacity. Reviewed by: Jono Gutierrez MD on 07/20/2020 6:02 PM PDT Approved by: Jono Gutierrez MD on 07/20/2020 6:02 PM PDT Station ID: [id number]
[2020-07-20 19:22] LABS: GLUCOSE, URINE (UA) NEGATIVE (NEGATIVE); KETONES,URINE (UA) 40 mg/dL (NEGATIVE); LEUKOCYTE ESTERASE, URINE NEGATIVE (NEGATIVE); NITRITE,URINE NEGATIVE (NEGATIVE); OCCULT BLOOD,URINE NEGATIVE (NEGATIVE); PROTEIN,URINE TRACE mg/dL (NEGATIVE); UROBILINOGEN,URINE 0.2 (NORMAL) E.U./dL (NORMAL)
[2020-07-20 19:27] LABS: CLARITY,URINE CLEAR (CLEAR)
[2020-07-20 19:28] LABS: BILIRUBIN,URINE NEGATIVE (NEGATIVE); ICTOTEST,URINE NEGATIVE
--- NOTE | 2020-07-20 20:03 | CT Report ---
PROCEDURE: HEAD WO INDICATIONS: weakness TECHNIQUE: Noncontrast 4.5 mm thick angled axial sections acquired from the foramen magnum to the vertex. For r adiation dose reduction, the following was used: automated exposure control, adjustment of mA and/or kV according to patient size. COMPARISON: Head CT 11/30/2013. FINDINGS: Image quality: Excellent. CSF spaces: Basal cisterns are patent. No extra-axial fluid collections. Ventricles are normal in size and shape. Brain: No midline shift. No intracranial masses or hemorrhage. No large area of hypodensity in a va scular distribution to suggest infarction. There is periventricular hypodensity consistent with chron ic microvascular ischemic disease. Age related parenchymal loss. Skull and face: Calvarium and visualized facial bones are intact, without suspicious lesions. Sinuses: Mucosal thickening in the right maxillary sinus. Mastoids are clear. IMPRESSION: No acute intracranial abnormality. Chronic microvascular ischemic disease. Reviewed by: Jono Gutierrez MD on 07/20/2020 8:02 PM PDT Approved by: Jono Gutierrez MD on 07/20/2020 8:02 PM PDT Station ID: [id number]
[2020-07-20] MEDS ORDERED: HYDROCORTISONE SUCCINATE 100 MG/2 ML VIAL IVP STA (20:48)
[2020-07-20] MEDS ORDERED: SODIUM CHLORIDE 0.9% 1,000 ML IV STA (20:48)
[2020-07-20] MEDS ORDERED: ACETAMINOPHEN 325 MG TABLET PO PRN (21:30)
[2020-07-20] MEDS ORDERED: SODIUM CHLORIDE FLUSH 0.9% 10 ML SYRINGE IVP PRN (21:30)
[2020-07-20] MEDS ORDERED: ONDANSETRON ODT 4 MG TABLET TL PRN (21:30)
[2020-07-20] MEDS ORDERED: ALBUTEROL NEB 2.5 MG/3 ML INH PRN (21:36)
--- NOTE | 2020-07-20 21:47 | HISTORY & PHYSICAL EXAMINATION ---
Chief Complaint - Chief Complaint Chief Complaint: Difficulty breathing History of Present Illness - Admitted From Admitted From:: Home - History Obtained From Records Reviewed: Yes History obtained from: Patient, ER Physician, EMR - History of Present Illness HPI Comment/Other: This is a 79-year-old female with a past medical history significant for COPD on 2 and half liters of oxygen, hypertension, iron deficiency anemia who presents today complaining of shortness of breath for the past 8 days. She states she received her first Covid vaccine about 10 days ago and a few days later she developed difficulty breathing. She states she has not had any improvement over the past 8 days and so she decided to come to the emergency department today. She reports no chest pain or cough. She has been taking her inhalers. She is on prednisone chronically for COPD but when asked if she had been taking it, she initially said yes but then stated she not taken it for the past few days. She tells me she thought her electrician control equipment was trying to wean her off of it but she has her most recent after visit summary from her electrician control equipment earlier this m [facility] which stated to continue prednisone 10 mg daily. She states she does have a little memory loss which she attributes to her age. She lives at home alone. She reports no dysuria, urgency. Reports a mild headache but denies neck pain. She also feels generally weak over the past few days. She is not sure if this is due to her breathing. She denies any focal deficits or sensory loss. In the emergency department, she was found to be afebrile with a temperature of 36.6 C. Her heart rate is in the 90s. Blood pressure was elevated in the 140s systolic. She was not tachypneic and was saturating well on 2 L of oxygen via nasal cannula. Her labs were significant for a white count of 12.5, BUN of 32, anion gap of 21, creatinine of 1.4. Her troponin was elevated at 32.5 and recheck a few hours later was 42.5. Ammonia, CK, TSH, BMP were normal. Her urinalysis was unremarkable. She underwent a CT of the head which showed no acute abnormalities. CT angiogram of the chest was negative for PE and showed clear lungs. Given concern for change in mental status/confusion as well as the elevated troponin and her dyspnea, medicine was consulted for admission. She did receive a liter of normal saline and 100 mg of IV hydrocortisone in the emergency department. I did discuss goals of care the patient and she confirms that she is a DNR. 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 Reports both of her parents were quite healthy. Living arrangement: At home Living Situation: Alone Social History Notes: The patient lives at home alone. 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 She has lived on [facility] for over 40 years. She smoked a pack a day for 50 years but quit 2 years ago. She does not currently drink alcohol. - POLST Patient has POLST: No Meds/Allgy - Home Medications Home Medications: Ambulatory Orders Medication Instructions Recorded Confirmed Cholecalciferol (Vitamin D3) 1,000 unit PO DAILY 12/13/12 07/20/20 [Vitamin D3] Tiotropium [Spiriva] 1 puffs INH DAILY 12/13/12 07/20/20 amLODIPine [Norvasc] 5 mg PO DAILY 12/13/12 07/20/20 Aspirin [Aspirin EC] 81 mg ORAL DAILY 12/16/13 07/20/20 Atenolol 50 mg PO DAILY 03/27/15 07/20/20 Ferrous Gluconate 324 mg PO BID 07/25/16 07/20/20 Albuterol Sulfate [Proair Hfa 1 - 2 puffs INH Q4H PRN 10/08/17 07/20/20 Inhaler] Docusate Sodium 100 mg PO DAILY PRN 10/08/17 02/18/19 predniSONE [Deltasone] 10 mg PO DAILY 10/08/17 07/20/20 Anastrozole 1 mg ORAL DAILY 07/20/20 07/20/20 Calcium Carb/Magnesium Hydrox 1 each PO DAILY 07/20/20 07/20/20 [Antacid Extra Strngth Tab Chew] Fluticasone/Salmeterol [Advair 1 each IH BID 07/20/20 07/20/20 100-50 Diskus] Hydroxyurea [Hydrea] 500 mg PO DAILY 07/20/20 07/20/20 Potassium Chloride 10 meq PO DAILY 07/20/20 07/20/20 - Allergies Allergies/Adverse Reactions: Allergies Allergy/AdvReac Type Severity Reaction Status Date / Time venom-honey bee Allergy Severe ANAPHYLAXIS Verified 02/18/19 14:28 [bee venom (honey bee)] FARZANEH Inhibitors Allergy TONGUE Verified 02/18/19 14:28 SWELLING Review of Systems - Constitutional Constitutional: reports: Fatigue, Weakness. denies: Fever, Chills - Eyes Eyes: denies: Blurred vision, Vision loss - Cardiovascular Cariovascular: reports: Exertional dyspnea, Decr. exercise tolerance. denies: Palpitations, Chest pain, Edema, Lightheadedness, Syncope - Respiratory Respiratory: reports: SOB at rest, SOB with exertion. denies: Cough, Sputum production - Gastrointestinal Gastrointestinal: denies: Abdominal pain, Diarrhea, Nausea, Vomiting - Genitourinary Genitourinary: denies: Dysuria, Frequency, Urgency, Hematuria - Musculoskeletal Musculoskeletal: denies: Back pain, Muscle weakness - Neurological Neurological: reports: General weakness, Headache, Memory problems. denies: Focal weakness, Numbness - Hematologic/Lymphatic Hematologic/Lymphatic: denies: Bleeding tendencies - All Other Systems All Other Systems: reports: Reviewed and negative Prior Level of Functionality: Lives at home alone. She reports having no caregivers. Exam - Vital Signs Vital Signs: Vital Signs x48h Temp Pulse Resp BP Pulse Ox 07/20/20 21:21 36.8 C 96 18 158/94 H 100 07/20/20 18:38 92 14 138/110 H 98 07/20/20 15:53 96 22 173/86 H 96 07/20/20 15:24 92 14 149/104 H 100 07/20/20 15:10 36.6 C 96 36 H 187/138 H 93 - Physical Exam General Appearance: positive: No acute distress, Alert Eyes Bilateral: positive: Normal inspection, Conjunctivae nml ENT: positive: Dry mucous membranes, Other (Nasal cannula in place.) Neck: positive: Nml inspection, Other (No nuchal rigidity.) Respiratory: positive: No respiratory distress, Other (Diminished bilaterally.). negative: Wheezes, Rales Cardiovascular: positive: Regular rate & rhythm, No murmur. negative: Tachycardia, Systolic murmur Abdomen: positive: Non-tender, No distention. negative: Tenderness Back: positive: Other (No cervical spine tenderness.) Skin: positive: Warm Extremities: positive: No pedal edema Neurologic/Psychiatric: positive: Motor nml, Sensation nml, Other (She is moving all 4 extremities. No obvious focal deficits. Oriented to self, location, year, month.). negative: Disoriented to person, Disoriented to place Conclusion/Plan - Problem List (1) Generalized weakness Conclusion/Plan: This is likely multifactorial. This may be secondary to her underlying COPD or possibly due to adrenal insufficiency as she has stopped taking her prednisone now for a few days. She also appears dehydrated with elevated BUN and creatinine. This may also be fatigue after receiving the Covid vaccine. At this time, we will place her on stress dose steroids to see if there is any improvement with this given she has not taken her prednisone for a few days. We will hydrated with lactated Ringer's. Trend her troponin and obtain echocardiogram. We will ask PT to evaluate her. Social work consulted to assist with disposition she will likely need caregivers at home. (2) Acute kidney injury Conclusion/Plan: Suspect likely prerenal. She has dry oral mucosa I suspect she is likely dehydrated. Her BUN and creatinine are both slightly increased compared to baseline. Creatinine is 1.4 and baseline is 1.0. She is already received 1 L of saline in the emergency department and we will continue her on lactated Ringer's. Recheck renal function in the morning. (3) Elevated troponin Conclusion/Plan: Troponin is elevated and slightly increasing with it being 42 now. Her EKG does not suggest ischemia and she reports no chest pain. Suspect this is likely demand ischemia. We will recheck in the morning as she does not want further blood draws. Will obtain echocardiogram in the morning as well. Monitor on telemetry. We will hold off on aspirin unless she develops chest pain or her troponin significantly rises. (4) Dyspnea Conclusion/Plan: The etiology of her dyspnea is not clear at this moment. She does have COPD but this does not appear to be in exacerbation. CT angiogram of the chest showed no pulmonary embolism and her lungs were clear. At this point we will continue her home inhalers and albuterol as needed. We will continue her home oxygen. We will continue to trend her troponin and obtain echocardiogram. (5) COPD (chronic obstructive pulmonary disease) Conclusion/Plan: This does not appear to be in exacerbation. She is on Advair, Spiriva and chronic prednisone although she has not been taking the prednisone recently. We will continue her home inhalers albuterol as needed. We will do stress dose steroids given her generalized weakness and concern for a component of adrenal insufficiency. (6) Chronic respiratory failure with hypoxia Conclusion/Plan: This is secondary to her COPD. She is on 2 and half liters of oxygen at baseline which we will continue. (7) HTN (hypertension) Conclusion/Plan: She was initially hypertensive but her systolic has improved to the 130s. We will continue her home antihypertensives. - Lab Results Lab results reviewed: Yes Jorge Bones: 07/20/20 15:50 07/20/20 15:50 - Diagnostic Imaging Results Diagnostic Imaging Results: positive: Final report reviewed - EKG Results EKG Interpreted Independently: Yes EKG Comparison: Changed from prior EKG EKG Findings: Her EKG reveals a sinus rhythm with PACs. She has nonspecific ST segment changes. Core Measures - Anticipated LOS I expect patient to be DC'd or transferred within 96 hours.: Yes - Issues Hospital Issues and Management Plan: 79-year-old female with history of COPD on oxygen presents with shortness of breath. Appears to be dehydrated and found to have a mildly elevated troponin. Has also been off of her prednisone so that could be the point of adrenal insufficiency. Will place in observation for trending troponin, echocardiogram, IV fluids and stress dose steroids. - DVT/VTE - Prophylaxis VTE/DVT Device ordered at admit?: Yes VTE/DVT Prophylaxis med ordered at admit?: Yes
[2020-07-20] MEDS ORDERED: LACTATED RINGERS 1,000 ML IV SCH (22:00)
[2020-07-21] MEDS: SODIUM CHLORIDE FLUSH 0.9% 10 ML SYRINGE IVP SCH ×3 (01:53→19:59)
[2020-07-21] MEDS ORDERED: HYDROCORTISONE SUCCINATE 100 MG/2 ML VIAL IVP SCH ×2 (05:00→09:23)
[2020-07-21 05:24] LABS: BASOPHILS % (AUTO) 0.4 %; HCT - HEMATOCRIT 43.6 % (37.0-47.0); HGB - HEMOGLOBIN 13.7 g/dL (12.0-16.0); LYMPHOCYTES # (AUTO) 0.6 10^3/uL (1.5-3.5); LYMPHOCYTES % (AUTO) 5.3 %; MEAN CORPUSCULAR HEMOGLOBIN 27.7 pg (27.0-31.0); MEAN CORPUSCULAR HGB CONC 31.4 g/dL (32.0-36.0); MEAN CORPUSCULAR VOLUME 88.1 fL (81.0-99.0); MEAN PLATELET VOLUME 11.9 fL (7.9-10.8); MONOCYTES # (AUTO) 0.5 10^3/uL (0.0-1.0); MONOCYTES % (AUTO) 4.6 %; NEUTROPHILS # (AUTO) 9.7 10^3/uL (1.5-6.6); NEUTROPHILS % (AUTO) 88.2 %; PLT - PLATELET COUNT 198 10^3/uL (130-450); RED BLOOD COUNT 4.95 10^6/uL (4.20-5.40); RED CELL DISTRIBUTION WIDTH 13.5 % (12.0-15.0)
[2020-07-21 05:45] LABS: CALCIUM 9.6 mg/dL (8.5-10.3); CREATININE 1.1 mg/dL (0.4-1.0); PHOSPHORUS 4.5 mg/dL (2.5-4.6)
[2020-07-21] MEDS: FORMOTEROL FUMARATE NEB 20 MCG/2 ML INH SCH ×2 (07:32→19:46)
[2020-07-21] MEDS: BUDESONIDE 0.5 MG/2 ML NEB INH SCH ×2 (07:32→19:46)
[2020-07-21] MEDS ORDERED: CHOLECALCIFEROL 1000 UNIT PO SCH (09:00)
[2020-07-21] MEDS ORDERED: ENOXAPARIN 40 MG/0.4 ML SYRINGE SUBQ SCH (09:00)
[2020-07-21] MEDS ORDERED: FERROUS GLUCONATE 324 MG PO SCH (09:00)
[2020-07-21] MEDS ORDERED: NON FORMULARY MED (Atenolol [Atenolol] 50 MG Tablet) PO SCH (09:00)
[2020-07-21] MEDS: atenoloL 25 MG TABLET PO SCH (09:54)
[2020-07-21] MEDS: FERROUS GLUCONATE 324 MG TABLET PO SCH ×2 (09:54→22:51)
[2020-07-21] MEDS: CHOLECALCIFEROL 25 MCG TABLET PO SCH (09:54)
[2020-07-21] MEDS: ASPIRIN EC 81 MG TABLET PO SCH (09:54)
[2020-07-21] MEDS: POTASSIUM CHLORIDE 10 MEQ CAPSULE PO SCH (09:54)
[2020-07-21] MEDS: ENOXAPARIN 30 MG/0.3 ML SYRINGE SUBQ SCH (09:55)
[2020-07-21] MEDS: HYDROXYUREA 500 MG CAPSULE PO SCH (09:55)
[2020-07-21] MEDS ORDERED: hydrALAZINE INJ 20 MG/ML VIAL IVP PRN (11:03)
[2020-07-21] MEDS: amLODIPine 5 MG TABLET PO SCH (12:50)
--- NOTE | 2020-07-21 13:12 | PHARMACY PROGRESS NOTE ---
- Best Possible Medication History Admit Date and Time: 07/20/202129 Processed by: Pharmacy Medication History completed: Yes Patient Interview: Completed (Pt interviewed by Prabha 07/21) Secondary Source(s): Pharmacy records, Insurance records As the person ultimately responsible for medication therapy, providers are able to order a medication from an existing home medication list in [facility] via the "Reconcile Routine" prior to Confirmation of that medication by manager sales support. Such practice is discouraged except when the physician, in their clinical judgment, deems that a medical need exists for a medication without regard to previous use.
--- NOTE | 2020-07-21 17:34 | PROVIDER PROGRESS NOTE ---
Assessment/Plan - Problem List (1) Confused Assessment/Plan: pt is confused on today, pt has no Focal neuro deficit, it is likely caused by high dosage of IV steroid, we will wean off it gradually, and neuro check (2) Generalized weakness Conclusion/Plan: PT/OT Evaluated and treated the patient, Recommend to [place] [facility], Social work was consulted for disposition (3) Acute kidney injury improved, creatinine is 1.1, continue IVF, since pt has poor intake, pt is confused. (4) Elevated troponin troponin slight elevated and is treaded down. EKG did not show acute ischemic change, echo is unremarkable, Continue home aspirin, and atelol (5) Dyspnea improved. pt has 100% on 2 liter of O2 as her home O2, pt did not show acute respiratory distress. pt does not appear to be in exacerbation. CT angiogram of the chest showed no pulmonary embolism and her lungs were clear. add Duoneb PRN (6) COPD (chronic obstructive pulmonary disease) Conclusion/Plan: This does not appear to be in exacerbation. She is on Advair, Spiriva and chronic prednisone although she has not been taking the prednisone recently. We will continue her home inhalers albuterol as needed. We will do stress dose steroids given her generalized weakness and concern for a component of adrenal insufficiency. (7) Chronic respiratory failure with hypoxia Conclusion/Plan: This is secondary to her COPD. She is on 2 and half liters of oxygen at baseline which we will continue. (8) HTN (hypertension) Conclusion/Plan: She was initially hypertensive but her systolic has improved to the 130s. We will continue her home antihypertensives. - Current Meds Current Meds: Current Medications Generic Name Dose Route Start Last Admin Trade Name Freq PRN Reason Stop Dose Admin Albuterol 2.5 mg 07/20/20 21:36 07/21/20 07:32 Albuterol Neb 2.5 Mg/3 Ml INH 2.5 mg RTQ4H PRN Administration Wheezing Amlodipine Besylate 10 mg 07/21/20 12:00 07/21/20 12:50 Amlodipine 5 Mg Tablet PO 10 mg DAILY [facility] Administration Aspirin 81 mg 07/21/20 09:00 07/21/20 09:54 Aspirin Ec 81 Mg Tablet PO 81 mg DAILY [facility] Administration Atenolol 50 mg 07/21/20 09:00 07/21/20 09:54 Atenolol 25 Mg Tablet PO 50 mg DAILY [facility] Administration Budesonide 0.5 mg 07/21/20 07:00 07/21/20 07:32 Budesonide 0.5 Mg/2 Ml Neb INH 0.5 mg RTBID [facility] Administration Cholecalciferol 25 mcg 07/21/20 09:00 07/21/20 09:54 Cholecalciferol 25 Mcg Tablet PO 25 mcg DAILY [facility] Administration Enoxaparin Sodium 30 mg 07/21/20 09:00 07/21/20 09:55 Enoxaparin 30 Mg/0.3 Ml Syringe SUBQ 30 mg DAILY [facility] Administration Ferrous Gluconate 324 mg 07/21/20 09:00 07/21/20 09:54 Ferrous Gluconate 324 Mg Tablet PO 324 mg BID [facility] Administration Formoterol Fumarate 20 mcg 07/21/20 07:00 07/21/20 07:32 Formoterol Fumarate Neb 20 Mcg/2 Ml INH 20 mcg RTBID [facility] Administration Hydrocortisone Sodium Succinate 50 mg 07/21/20 09:23 07/21/20 10:09 Hydrocortisone Succinate 100 Mg/2 Ml Vial IVP 50 mg Q8H [facility] Administration Hydroxyurea 500 mg 07/21/20 09:00 07/21/20 09:55 Hydroxyurea 500 Mg Capsule PO 500 mg DAILY [facility] Administration Potassium Chloride 10 meq 07/21/20 09:00 07/21/20 09:54 Potassium Chloride 10 Meq Capsule PO 10 meq DAILY [facility] Administration Sodium Chloride 10 ml 07/21/20 01:00 07/21/20 10:11 Sodium Chloride Flush 0.9% 10 Ml Syringe IVP 10 ml 0100,0900,1700 [facility] Administration - Lab Result Fish Bone Diagrams: 07/22/20 05:41 07/22/20 05:41 - Additional Planning My Orders: My Active Orders 07/21/20 09:23 Hydrocortisone Succinate [Solu-CORTEF] 50 mg IVP Q8H 07/21/20 11:03 hydrALAZINE INJ [Apresoline Inj] 10 mg IVP QID PRN 07/21/20 12:00 amLODIPine [Norvasc] 10 mg PO DAILY 07/21/20 18:00 NS 0.9% @ 83.333 mls/hr Sodium Chloride 0.9% [Normal Saline 0.9%] 1,000 ml IV 83.333 mls/hr 07/21/20 21:00 Docusate Sodium 250Mg Capsule [Colace 250Mg Capsule] 250 - 500 mg PO DAILY Senna [Senokot] 8.6 - 17.2 mg PO DAILY polyethylene glycoL 3350 [Miralax] 17 gm PO DAILY 07/22/20 05:00 BMP - BASIC METABOLIC PANEL [CHEM] DAILYLAB CBC - COMP BLD CT W/AUTO DIFF [HEME] DAILYLAB 07/23/20 05:00 BMP - BASIC METABOLIC PANEL [CHEM] DAILYLAB CBC - COMP BLD CT W/AUTO DIFF [HEME] DAILYLAB 07/24/20 05:00 BMP - BASIC METABOLIC PANEL [CHEM] DAILYLAB CBC - COMP BLD CT W/AUTO DIFF [HEME] DAILYLAB 07/25/20 05:00 BMP - BASIC METABOLIC PANEL [CHEM] DAILYLAB CBC - COMP BLD CT W/AUTO DIFF [HEME] DAILYLAB Subjective - Subjective Nursing Reports: Confused Objective Vital Signs: Vital Signs - 24 hr 07/20/20 07/20/20 07/20/20 18:38 21:21 22:42 Temperature 36.8 C 37.1 C Heart Rate 92 96 Heart Rate [ 92 Brachial] Heart Rate [ Sitting] Respiratory 14 18 20 Rate Blood Pressure 138/110 H 158/94 H Blood Pressure 150/98 H [Left Brachial artery] Blood Pressure [Sitting] O2 Saturation 98 100 95 07/21/20 07/21/20 07/21/20 00:54 01:04 07:33 Temperature 36.5 C Heart Rate 84 Heart Rate [ 90 Brachial] Heart Rate [ Sitting] Respiratory 20 20 Rate Blood Pressure Blood Pressure 184/91 H 147/109 H [Left Brachial artery] Blood Pressure [Sitting] O2 Saturation 95 07/21/20 07/21/20 07/21/20 09:50 11:50 12:46 Temperature 36.3 C L 36.1 C L Heart Rate Heart Rate [ 100 62 Brachial] Heart Rate [ 67 Sitting] Respiratory 20 20 Rate Blood Pressure Blood Pressure 185/116 H 177/95 H [Left Brachial artery] Blood Pressure 170/101 H [Sitting] O2 Saturation 98 99 07/21/20 16:11 Temperature 36.6 C Heart Rate Heart Rate [ 65 Brachial] Heart Rate [ Sitting] Respiratory 16 Rate Blood Pressure Blood Pressure 154/89 H [Left Brachial artery] Blood Pressure [Sitting] O2 Saturation 100 Oxygen O2 Source [With Activity] Room air O2 Source Nasal cannula Oxygen Flow Rate 2 I&O (Last 24 Hrs): Intake and Output Totals x24h 07/19/20 07/20/20 07/21/20 23:59 23:59 23:59 Intake Total 1000 1120 Output Total 100 Balance 1000 1020 General: Alert, Mild distress HEENT: Atraumatic Neck: Supple Lymphatic: no adenopathy Neuro: Alert, Non Focal Cardiovascular: Regular rate, Normal S1, Normal S2 Respiratory: Chest non-tender Abdomen: Normal bowel sounds, Soft Extremities: Normal pulses - Results Results: Laboratory Results WBC 11.0 x10^3/uL (4.8-10.8) H 07/21/20 04:16 RBC 4.95 10^6/uL (4.20-5.40) 07/21/20 04:16 Hgb 13.7 g/dL (12.0-16.0) 07/21/20 04:16 Hct 43.6 % (37.0-47.0) 07/21/20 04:16 MCV 88.1 fL (81.0-99.0) 07/21/20 04:16 MCH 27.7 pg (27.0-31.0) 07/21/20 04:16 MCHC 31.4 g/dL (32.0-36.0) L 07/21/20 04:16 RDW 13.5 % (12.0-15.0) 07/21/20 04:16 Plt Count 198 10^3/uL (130-450) 07/21/20 04:16 MPV 11.9 fL (7.9-10.8) H 07/21/20 04:16 Neut # (Auto) 9.7 10^3/uL (1.5-6.6) H 07/21/20 04:16 Lymph # (Auto) 0.6 10^3/uL (1.5-3.5) L 07/21/20 04:16 [place] # (Auto) 0.5 10^3/uL (0.0-1.0) 07/21/20 04:16 Eos # (Auto) 0.0 10^3/uL (0.0-0.7) 07/21/20 04:16 Baso # (Auto) 0.0 10^3/uL (0.0-0.1) 07/21/20 04:16 Absolute Nucleated RBC 0.00 x10^3/uL 07/21/20 04:16 Nucleated RBC % 0.0 /100WBC 07/21/20 04:16 VBG pH 7.307 (7.31-7.41) L 07/20/20 15:50 VBG pCO2 45.1 mmHg (41-51) 07/20/20 15:50 VBG pO2 36.3 mmHg (25-47) 07/20/20 15:50 VBG HCO3 22.0 mmol/L (23-28) L 07/20/20 15:50 VBG Total CO2 23.4 mmol/L (24-29) L 07/20/20 15:50 VBG O2 Saturation 66.4 % (60-80) 07/20/20 15:50 VBG Base Excess -4.3 mmol/L (-2 - +2) L 07/20/20 15:50 Sodium 141 mmol/L (135-145) 07/21/20 04:16 Potassium 4.0 mmol/L (3.5-5.0) 07/21/20 04:16 Chloride 102 mmol/L (101-111) 07/21/20 04:16 Carbon Dioxide 27 mmol/L (21-32) 07/21/20 04:16 Anion Gap 12.0 (6-13) 07/21/20 04:16 BUN 30 mg/dL (6-20) H 07/21/20 04:16 Creatinine 1.1 mg/dL (0.4-1.0) H 07/21/20 04:16 Estimated GFR (MDRD) 48 (>89) L 07/21/20 04:16 Glucose 146 mg/dL (70-100) H 07/21/20 04:16 Calcium 9.6 mg/dL (8.5-10.3) 07/21/20 04:16 Phosphorus 4.5 mg/dL (2.5-4.6) 07/21/20 04:16 Magnesium 2.0 mg/dL (1.7-2.8) 07/21/20 04:16 Ammonia 11.0 umol/L (7-35) 07/20/20 20:09 Total Creatine Kinase 199 IU/L (22-269) 07/20/20 15:50 Troponin I High Sens 30.5 ng/L (2.3-14.8) H* 07/21/20 04:16 B-Natriuretic Peptide 45 pg/mL (5-100) 07/20/20 15:50 TSH 1.16 uIU/mL (0.34-5.60) 07/20/20 15:50 Urine Color YELLOW 07/20/20 19:14 Urine Clarity CLEAR (CLEAR) 07/20/20 19:14 Urine pH 5.0 PH (5.0-7.5) 07/20/20 19:14 Ur Specific [place] 1.010 (1.002-1.030) 07/20/20 19:14 Urine Protein TRACE mg/dL (NEGATIVE) 07/20/20 19:14 Urine Glucose (UA) NEGATIVE mg/dL (NEGATIVE) 07/20/20 19:14 Urine Ketones 40 mg/dL (NEGATIVE) H 07/20/20 19:14 Urine Occult Blood NEGATIVE (NEGATIVE) 07/20/20 19:14 Urine Nitrite NEGATIVE (NEGATIVE) 07/20/20 19:14 Urine Bilirubin NEGATIVE (NEGATIVE) 07/20/20 19:14 Urine Urobilinogen 0.2 (NORMAL) E.U./dL (NORMAL) 07/20/20 19:14 Ur Leukocyte Esterase NEGATIVE (NEGATIVE) 07/20/20 19:14 Ur Microscopic Review NOT INDICATED 07/20/20 19:14 Urine Culture Comments NOT INDICATED 07/20/20 19:14 Nasal Adenovirus (PCR) NOT DETECTED 07/20/20 15:50 Nasal B. parapertussis DNA (PCR) NOT DETECTED 07/20/20 15:50 Nasal Coronavir 229E PCR NOT DETECTED 07/20/20 15:50 Nasal Coronavir HKU1 PCR NOT DETECTED 07/20/20 15:50 Nasal Coronavir NL63 PCR NOT DETECTED 07/20/20 15:50 Nasal Coronavir OC43 PCR NOT DETECTED 07/20/20 15:50 Nasal Enterovir/Rhinovir PCR NOT DETECTED 07/20/20 15:50 Nasal Influenza B PCR NOT DETECTED 07/20/20 15:50 Nasal Influenza A PCR NOT DETECTED 07/20/20 15:50 Nasal Parainfluen 1 PCR NOT DETECTED 07/20/20 15:50 Nasal Parainfluen 2 PCR NOT DETECTED 07/20/20 15:50 Nasal Parainfluen 3 PCR NOT DETECTED 07/20/20 15:50 Nasal Parainfluen 4 PCR NOT DETECTED 07/20/20 15:50 Nasal RSV (PCR) NOT DETECTED 07/20/20 15:50 Nasal B.pertussis DNA PCR NOT DETECTED 07/20/20 15:50 Nasal C.pneumoniae (PCR) NOT DETECTED 07/20/20 15:50 Armani Human Metapneumo PCR NOT DETECTED 07/20/20 15:50 Nasal M.pneumoniae (PCR) NOT DETECTED 07/20/20 15:50 Nasal SARS-CoV-2 (PCR) NOT DETECTED 07/20/20 15:50 - Procedures Procedures: Procedures EXCISE AXILLARY NODE (02/04/13) EXCISION OF SIGMOID COLON, ENDO, DIAGN (11/09/16) LOCAL EXCIS BREAST LES (02/04/13) ABX Reporting Has patient been on IV antibiotics over the past 48 hours?: No Current Medications - Current Medications Current Medications: Active Medications Acetaminophen (Acetaminophen 325 Mg Tablet) 650 mg PO Q4HR PRN PRN Reason: Pain 1 to 4 Albuterol (Albuterol Neb 2.5 Mg/3 Ml) 2.5 mg INH RTQ4H PRN PRN Reason: Wheezing Last Admin: 07/21/20 07:32 Dose: 2.5 mg Documented by: Albuterol/Ipratropium (Ipratropium/Albuterol 3 Ml Neb) 3 ml INH RTQID PRN PRN Reason: Shortness of Air/Wheezing Last Admin: 07/21/20 19:46 Dose: 3 ml Documented by: Amlodipine Besylate (Amlodipine 5 Mg Tablet) 10 mg PO DAILY [facility] Last Admin: 07/22/20 11:05 Dose: 10 mg Documented by: Aspirin (Aspirin Ec 81 Mg Tablet) 81 mg PO DAILY [facility] Last Admin: 07/22/20 11:04 Dose: 81 mg Documented by: Atenolol (Atenolol 25 Mg Tablet) 50 mg PO DAILY [facility] Last Admin: 07/22/20 11:04 Dose: 50 mg Documented by: Budesonide (Budesonide 0.5 Mg/2 Ml Neb) 0.5 mg INH RTBID [facility] Last Admin: 07/22/20 07:19 Dose: 0.5 mg Documented by: Cholecalciferol (Cholecalciferol 25 Mcg Tablet) 25 mcg PO DAILY [facility] Last Admin: 07/22/20 11:04 Dose: 25 mcg Documented by: Docusate Sodium (Docusate Sodium 250 Mg Capsule) 250 - 500 mg PO DAILY [facility] Last Admin: 07/22/20 11:19 Dose: Not Given Documented by: Enoxaparin Sodium (Enoxaparin 30 Mg/0.3 Ml Syringe) 30 mg SUBQ DAILY [facility] Last Admin: 07/22/20 11:06 Dose: 30 mg Documented by: Ferrous Gluconate (Ferrous Gluconate 324 Mg Tablet) 324 mg PO BID [facility] Last Admin: 07/22/20 11:04 Dose: 324 mg Documented by: Formoterol Fumarate (Formoterol Fumarate Neb 20 Mcg/2 Ml) 20 mcg INH RTBID [facility] Last Admin: 07/22/20 07:19 Dose: 20 mcg Documented by: Hydralazine HCl (Hydralazine Inj 20 Mg/Ml Vial) 10 mg IVP QID PRN PRN Reason: Hypertensive Emergency Hydroxyurea (Hydroxyurea 500 Mg Capsule) 500 mg PO DAILY [facility] Last Admin: 07/22/20 11:06 Dose: Not Given Documented by: Sodium Chloride (Normal Saline 0.9%) 1,000 mls @ 83.333 mls/hr IV .Q12H [facility] Stop: 07/22/20 17:59 Last Admin: 07/22/20 10:52 Dose: 83.333 mls/hr Documented by: Ondansetron HCl (Ondansetron Odt 4 Mg Tablet) 4 mg TL Q6HR PRN PRN Reason: Nausea / Vomiting Polyethylene Glycol (Polyethylene Glycol 3350 17 Gm Packet) 17 gm PO DAILY [facility] Last Admin: 07/22/20 11:06 Dose: Not Given Documented by: Potassium Chloride (Potassium Chloride 10 Meq Capsule) 10 meq PO DAILY [facility] Last Admin: 07/22/20 11:04 Dose: 10 meq Documented by: Prednisone (Prednisone 5 Mg Tablet) 10 mg PO DAILY [facility] Last Admin: 07/22/20 11:04 Dose: 10 mg Documented by: Senna (Senna 8.6 Mg Tablet) 8.6 - 17.2 mg PO DAILY [facility] Last Admin: 07/22/20 11:06 Dose: Not Given Documented by: Sodium Chloride (Sodium Chloride Flush 0.9% 10 Ml Syringe) 10 ml IVP PRN PRN PRN Reason: NEEDED PER PROVIDER ORDERS Sodium Chloride (Sodium Chloride Flush 0.9% 10 Ml Syringe) 10 ml IVP 0100,0900,1700 [facility] Last Admin: 07/22/20 11:07 Dose: Not Given Documented by: Cholecalciferol (Vitamin D3) [Vitamin D3] 1,000 unit PO DAILY 12/13/12 Tiotropium [Spiriva] 1 puffs INH DAILY 12/13/12 amLODIPine [Norvasc] 5 mg PO DAILY 12/13/12 Aspirin [Aspirin EC] 81 mg ORAL DAILY 12/16/13 Atenolol 50 mg PO DAILY 03/27/15 Ferrous Gluconate 324 mg PO BID 07/25/16 Albuterol Sulfate [Proair Hfa Inhaler] 1 - 2 puffs INH Q4H PRN 10/08/17 predniSONE [Deltasone] 10 mg PO DAILY 10/08/17 Anastrozole 1 mg ORAL DAILY 07/20/20 Calcium Carb/Magnesium Hydrox [Antacid Extra Strngth Tab Chew] 1 each PO DAILY 07/20/20 Fluticasone/Salmeterol [Advair 100-50 Diskus] 1 each IH BID 07/20/20 Hydroxyurea [Hydrea] 500 mg PO DAILY 07/20/20 Potassium Chloride 10 meq PO DAILY 07/20/20
[2020-07-21] MEDS: IPRATROPIUM/ALBUTEROL 3 ML NEB INH PRN (19:46)
[2020-07-21] MEDS: SODIUM CHLORIDE 0.9% 1,000 ML IV SCH (20:20)
[2020-07-21] MEDS: DOCUSATE SODIUM 250 MG CAPSULE PO SCH (22:54)
[2020-07-21] MEDS: polyethylene glycoL 3350 17 GM PACKET PO SCH (22:54)
[2020-07-21] MEDS: SENNA 8.6 MG TABLET PO SCH (22:55)
[2020-07-22] MEDS: SODIUM CHLORIDE FLUSH 0.9% 10 ML SYRINGE IVP SCH ×3 (01:34→17:00)
[2020-07-22] MEDS ORDERED: HYDROCORTISONE SUCCINATE 100 MG/2 ML VIAL IVP SCH (06:00)
[2020-07-22 06:19] LABS: BASOPHILS % (AUTO) 0.4 %; EOSINOPHILS % (AUTO) 0.2 %; HCT - HEMATOCRIT 39.7 % (37.0-47.0); HGB - HEMOGLOBIN 12.7 g/dL (12.0-16.0); LYMPHOCYTES # (AUTO) 0.9 10^3/uL (1.5-3.5); LYMPHOCYTES % (AUTO) 8.3 %; MEAN CORPUSCULAR HEMOGLOBIN 28.1 pg (27.0-31.0); MEAN CORPUSCULAR VOLUME 87.8 fL (81.0-99.0); MEAN PLATELET VOLUME 11.7 fL (7.9-10.8); MONOCYTES # (AUTO) 1.1 10^3/uL (0.0-1.0); MONOCYTES % (AUTO) 10.4 %; NEUTROPHILS # (AUTO) 8.3 10^3/uL (1.5-6.6); NEUTROPHILS % (AUTO) 79.8 %; PLT - PLATELET COUNT 209 10^3/uL (130-450); RED BLOOD COUNT 4.52 10^6/uL (4.20-5.40); RED CELL DISTRIBUTION WIDTH 13.5 % (12.0-15.0); WHITE BLOOD COUNT 10.4 x10^3/uL (4.8-10.8)
[2020-07-22 06:26] LABS: CALCIUM 8.9 mg/dL (8.5-10.3); POTASSIUM 3.4 mmol/L (3.5-5.0)
[2020-07-22] MEDS: BUDESONIDE 0.5 MG/2 ML NEB INH SCH ×2 (07:19→19:45)
[2020-07-22] MEDS: FORMOTEROL FUMARATE NEB 20 MCG/2 ML INH SCH ×2 (07:19→19:45)
[2020-07-22] MEDS: SODIUM CHLORIDE 0.9% 1,000 ML IV SCH (10:52)
[2020-07-22] MEDS: ASPIRIN EC 81 MG TABLET PO SCH (11:04)
[2020-07-22] MEDS: POTASSIUM CHLORIDE 20 MEQ TABLET PO ONE ×2 (11:04→11:21)
[2020-07-22] MEDS: predniSONE 5 MG TABLET PO SCH (11:04)
[2020-07-22] MEDS: POTASSIUM CHLORIDE 10 MEQ CAPSULE PO SCH (11:04)
[2020-07-22] MEDS: FERROUS GLUCONATE 324 MG TABLET PO SCH ×2 (11:04→22:38)
[2020-07-22] MEDS: atenoloL 25 MG TABLET PO SCH (11:04)
[2020-07-22] MEDS: CHOLECALCIFEROL 25 MCG TABLET PO SCH (11:04)
[2020-07-22] MEDS: DOCUSATE SODIUM 250 MG CAPSULE PO SCH ×2 (11:05→11:19)
[2020-07-22] MEDS: amLODIPine 5 MG TABLET PO SCH (11:05)
[2020-07-22] MEDS: polyethylene glycoL 3350 17 GM PACKET PO SCH (11:06)
[2020-07-22] MEDS: HYDROXYUREA 500 MG CAPSULE PO SCH (11:06)
[2020-07-22] MEDS: SENNA 8.6 MG TABLET PO SCH (11:06)
[2020-07-22] MEDS: ENOXAPARIN 30 MG/0.3 ML SYRINGE SUBQ SCH (11:06)
--- NOTE | 2020-07-22 16:56 | PROVIDER PROGRESS NOTE ---
Assessment/Plan - Problem List (1) Confused Assessment/Plan: 07/22 pt's confused is resolved. pt is pending for d/c. Verna is reviewing for pt per geriatric social work professor pt is confused on today, pt has no Focal neuro deficit, it is likely caused by high dosage of IV steroid, we will wean off it gradually, and neuro check (2) Generalized weakness Conclusion/Plan: PT/OT Evaluated and treated the patient, Recommend to [place] SNF, Social work was consulted for disposition (3) Acute kidney injury 07/22 creatinine is 1.0 improved. 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 (4) Elevated troponin troponin slight elevated and is treaded down. EKG did not show acute ischemic change, echo is unremarkable, Continue home aspirin, and atelol (5) Dyspnea improved. pt has 100% on 2 liter of O2 as her home O2, pt did not show acute respiratory distress. pt does not appear to be in exacerbation. CT angiogram of the chest showed no pulmonary embolism and her lungs were clear. add Duoneb PRN (6) COPD (chronic obstructive pulmonary disease) Conclusion/Plan: This does not appear to be in exacerbation. She is on Advair, Spiriva and chronic prednisone although she has not been taking the prednisone recently. We will continue her home inhalers albuterol as needed. We will do stress dose steroids given her generalized weakness and concern for a component of adrenal insufficiency. - Current Meds Current Meds: Current Medications Generic Name Dose Route Start Last Admin Trade Name Freq PRN Reason Stop Dose Admin Albuterol 2.5 mg 07/20/20 21:36 07/21/20 07:32 Albuterol Neb 2.5 Mg/3 Ml INH 2.5 mg RTQ4H PRN Administration Wheezing Albuterol/Ipratropium 3 ml 07/21/20 18:29 07/21/20 19:46 Ipratropium/Albuterol 3 Ml Neb INH 3 ml RTQID PRN Administration Shortness of Air/Wheezing Amlodipine Besylate 10 mg 07/21/20 12:00 07/22/20 11:05 Amlodipine 5 Mg Tablet PO 10 mg DAILY [facility] Administration Aspirin 81 mg 07/21/20 09:00 07/22/20 11:04 Aspirin Ec 81 Mg Tablet PO 81 mg DAILY [facility] Administration Atenolol 50 mg 07/21/20 09:00 07/22/20 11:04 Atenolol 25 Mg Tablet PO 50 mg DAILY [facility] Administration Budesonide 0.5 mg 07/21/20 07:00 07/22/20 07:19 Budesonide 0.5 Mg/2 Ml Neb INH 0.5 mg RTBID [facility] Administration Cholecalciferol 25 mcg 07/21/20 09:00 07/22/20 11:04 Cholecalciferol 25 Mcg Tablet PO 25 mcg DAILY [facility] Administration Docusate Sodium 250 - 500 mg 07/21/20 21:00 07/22/20 11:19 Docusate Sodium 250 Mg Capsule PO Not Given DAILY [facility] Enoxaparin Sodium 30 mg 07/21/20 09:00 07/22/20 11:06 Enoxaparin 30 Mg/0.3 Ml Syringe SUBQ 30 mg DAILY [facility] Administration Ferrous Gluconate 324 mg 07/21/20 09:00 07/22/20 11:04 Ferrous Gluconate 324 Mg Tablet PO 324 mg BID [facility] Administration Formoterol Fumarate 20 mcg 07/21/20 07:00 07/22/20 07:19 Formoterol Fumarate Neb 20 Mcg/2 Ml INH 20 mcg RTBID [facility] Administration Hydroxyurea 500 mg 07/21/20 09:00 07/22/20 11:06 Hydroxyurea 500 Mg Capsule PO Not Given DAILY [facility] Sodium Chloride 1,000 mls @ 83.333 mls/hr 07/21/20 18:00 07/22/20 10:52 Normal Saline 0.9% IV 07/22/20 17:59 83.333 mls/hr .Q12H [facility] Administration Polyethylene Glycol 17 gm 07/21/20 21:00 07/22/20 11:06 Polyethylene Glycol 3350 17 Gm Packet PO Not Given DAILY [facility] Potassium Chloride 10 meq 07/21/20 09:00 07/22/20 11:04 Potassium Chloride 10 Meq Capsule PO 10 meq DAILY [facility] Administration Prednisone 10 mg 07/22/20 11:00 07/22/20 11:04 Prednisone 5 Mg Tablet PO 10 mg DAILY [facility] Administration Senna 8.6 - 17.2 mg 07/21/20 21:00 07/22/20 11:06 Senna 8.6 Mg Tablet PO Not Given DAILY [facility] Sodium Chloride 10 ml 07/21/20 01:00 07/22/20 11:07 Sodium Chloride Flush 0.9% 10 Ml Syringe IVP Not Given 0100,0900,1700 [facility] - Lab Result Fish Bone Diagrams: 07/22/20 05:41 07/22/20 05:41 - Additional Planning My Orders: My Active Orders 07/21/20 18:00 Sodium Chloride 0.9% [Normal Saline 0.9%] 1,000 ml IV 83.333 mls/hr 07/21/20 18:20 Neuro Check [RC] QSHIFT 07/21/20 18:29 Ipratropium/Albuterol [Duoneb] 3 ml INH RTQID PRN 07/21/20 21:00 Docusate Sodium 250Mg Capsule [Colace 250Mg Capsule] 250 - 500 mg PO DAILY Senna [Senokot] 8.6 - 17.2 mg PO DAILY polyethylene glycoL 3350 [Miralax] 17 gm PO DAILY 07/22/20 11:00 predniSONE [Deltasone] 10 mg PO DAILY 07/23/20 05:00 BMP - BASIC METABOLIC PANEL [CHEM] DAILYLAB CBC - COMP BLD CT W/AUTO DIFF [HEME] DAILYLAB 07/24/20 05:00 BMP - BASIC METABOLIC PANEL [CHEM] DAILYLAB CBC - COMP BLD CT W/AUTO DIFF [HEME] DAILYLAB 07/25/20 05:00 BMP - BASIC METABOLIC PANEL [CHEM] DAILYLAB CBC - COMP BLD CT W/AUTO DIFF [HEME] DAILYLAB Subjective - Subjective Patient Reports: Feeling Better Objective Vital Signs: Vital Signs - 24 hr 07/21/20 07/21/20 07/22/20 19:45 20:59 00:35 Temperature 36.3 C L 36.4 C L Heart Rate 65 Heart Rate [ 75 117 H Brachial] Respiratory 24 24 18 Rate Blood Pressure 146/87 H 149/96 H [Right Radial artery] O2 Saturation 100 95 07/22/20 07/22/20 07/22/20 07:27 07:37 14:12 Temperature 36.3 C L 36.5 C Heart Rate 68 Heart Rate [ 65 63 Brachial] Respiratory 18 22 20 Rate Blood Pressure 149/67 H 145/65 H [Right Radial artery] O2 Saturation 98 98 07/22/20 15:36 Temperature 36.5 C Heart Rate Heart Rate [ 63 Brachial] Respiratory 20 Rate Blood Pressure 153/73 H [Right Radial artery] O2 Saturation 99 Oxygen O2 Source [With Activity] Room air O2 Source Nasal cannula Oxygen Flow Rate 2 I&O (Last 24 Hrs): Intake and Output Totals x24h 07/20/20 07/21/20 07/22/20 23:59 23:59 23:59 Intake Total 1000 2790.963 0062.779 Output Total 100 100 Balance 1000 1729.897 3031.779 General: Alert, Oriented x3, No acute distress HEENT: Atraumatic Neck: Supple Lymphatic: no adenopathy Neuro: Alert, Non Focal Cardiovascular: Regular rate, Normal S1, Normal S2 Respiratory: Chest non-tender, No respiratory distress Abdomen: Normal bowel sounds, Soft, No tenderness Extremities: Normal pulses - Results Results: Laboratory Results WBC 10.4 x10^3/uL (4.8-10.8) 07/22/20 05:41 RBC 4.52 10^6/uL (4.20-5.40) 07/22/20 05:41 Hgb 12.7 g/dL (12.0-16.0) 07/22/20 05:41 Hct 39.7 % (37.0-47.0) 07/22/20 05:41 MCV 87.8 fL (81.0-99.0) 07/22/20 05:41 MCH 28.1 pg (27.0-31.0) 07/22/20 05:41 MCHC 32.0 g/dL (32.0-36.0) 07/22/20 05:41 RDW 13.5 % (12.0-15.0) 07/22/20 05:41 Plt Count 209 10^3/uL (130-450) 07/22/20 05:41 MPV 11.7 fL (7.9-10.8) H 07/22/20 05:41 Neut # (Auto) 8.3 10^3/uL (1.5-6.6) H 07/22/20 05:41 Lymph # (Auto) 0.9 10^3/uL (1.5-3.5) L 07/22/20 05:41 Hyde # (Auto) 1.1 10^3/uL (0.0-1.0) H 07/22/20 05:41 Eos # (Auto) 0.0 10^3/uL (0.0-0.7) 07/22/20 05:41 Baso # (Auto) 0.0 10^3/uL (0.0-0.1) 07/22/20 05:41 Absolute Nucleated RBC 0.00 x10^3/uL 07/22/20 05:41 Nucleated RBC % 0.0 /100WBC 07/22/20 05:41 VBG pH 7.307 (7.31-7.41) L 07/20/20 15:50 VBG pCO2 45.1 mmHg (41-51) 07/20/20 15:50 VBG pO2 36.3 mmHg (25-47) 07/20/20 15:50 VBG HCO3 22.0 mmol/L (23-28) L 07/20/20 15:50 VBG Total CO2 23.4 mmol/L (24-29) L 07/20/20 15:50 VBG O2 Saturation 66.4 % (60-80) 07/20/20 15:50 VBG Base Excess -4.3 mmol/L (-2 - +2) L 07/20/20 15:50 Sodium 140 mmol/L (135-145) 07/22/20 05:41 Potassium 3.4 mmol/L (3.5-5.0) L 07/22/20 05:41 Chloride 104 mmol/L (101-111) 07/22/20 05:41 Carbon Dioxide 24 mmol/L (21-32) 07/22/20 05:41 Anion Gap 12.0 (6-13) 07/22/20 05:41 BUN 32 mg/dL (6-20) H 07/22/20 05:41 Creatinine 1.0 mg/dL (0.4-1.0) 07/22/20 05:41 Estimated GFR (MDRD) 54 (>89) L 07/22/20 05:41 Glucose 98 mg/dL (70-100) 07/22/20 05:41 Calcium 8.9 mg/dL (8.5-10.3) 07/22/20 05:41 Phosphorus 4.5 mg/dL (2.5-4.6) 07/21/20 04:16 Magnesium 2.0 mg/dL (1.7-2.8) 07/21/20 04:16 Ammonia 11.0 umol/L (7-35) 07/20/20 20:09 Total Creatine Kinase 199 IU/L (22-269) 07/20/20 15:50 Troponin I High Sens 30.5 ng/L (2.3-14.8) H* 07/21/20 04:16 B-Natriuretic Peptide 45 pg/mL (5-100) 07/20/20 15:50 TSH 1.16 uIU/mL (0.34-5.60) 07/20/20 15:50 Urine Color YELLOW 07/20/20 19:14 Urine Clarity CLEAR (CLEAR) 07/20/20 19:14 Urine pH 5.0 PH (5.0-7.5) 07/20/20 19:14 Ur Specific Union 1.010 (1.002-1.030) 07/20/20 19:14 Urine Protein TRACE mg/dL (NEGATIVE) 07/20/20 19:14 Urine Glucose (UA) NEGATIVE mg/dL (NEGATIVE) 07/20/20 19:14 Urine Ketones 40 mg/dL (NEGATIVE) H 07/20/20 19:14 Urine Occult Blood NEGATIVE (NEGATIVE) 07/20/20 19:14 Urine Nitrite NEGATIVE (NEGATIVE) 07/20/20 19:14 Urine Bilirubin NEGATIVE (NEGATIVE) 07/20/20 19:14 Urine Urobilinogen 0.2 (NORMAL) E.U./dL (NORMAL) 07/20/20 19:14 Ur Leukocyte Esterase NEGATIVE (NEGATIVE) 07/20/20 19:14 Ur Microscopic Review NOT INDICATED 07/20/20 19:14 Urine Culture Comments NOT INDICATED 07/20/20 19:14 Nasal Adenovirus (PCR) NOT DETECTED 07/20/20 15:50 Nasal B. parapertussis DNA (PCR) NOT DETECTED 07/20/20 15:50 Nasal Coronavir 229E PCR NOT DETECTED 07/20/20 15:50 Nasal Coronavir HKU1 PCR NOT DETECTED 07/20/20 15:50 Nasal Coronavir NL63 PCR NOT DETECTED 07/20/20 15:50 Nasal Coronavir OC43 PCR NOT DETECTED 07/20/20 15:50 Nasal Enterovir/Rhinovir PCR NOT DETECTED 07/20/20 15:50 Nasal Influenza B PCR NOT DETECTED 07/20/20 15:50 Nasal Influenza A PCR NOT DETECTED 07/20/20 15:50 Nasal Parainfluen 1 PCR NOT DETECTED 07/20/20 15:50 Nasal Parainfluen 2 PCR NOT DETECTED 07/20/20 15:50 Nasal Parainfluen 3 PCR NOT DETECTED 07/20/20 15:50 Nasal Parainfluen 4 PCR NOT DETECTED 07/20/20 15:50 Nasal RSV (PCR) NOT DETECTED 07/20/20 15:50 Nasal B.pertussis DNA PCR NOT DETECTED 07/20/20 15:50 Nasal C.pneumoniae (PCR) NOT DETECTED 07/20/20 15:50 Armani Human Metapneumo PCR NOT DETECTED 07/20/20 15:50 Nasal M.pneumoniae (PCR) NOT DETECTED 07/20/20 15:50 Nasal SARS-CoV-2 (PCR) NOT DETECTED 07/20/20 15:50 - Procedures Procedures: Procedures EXCISE AXILLARY NODE (02/04/13) EXCISION OF SIGMOID COLON, ENDO, DIAGN (11/09/16) LOCAL EXCIS BREAST LES (02/04/13) ABX Reporting Has patient been on IV antibiotics over the past 48 hours?: No Current Medications - Current Medications Current Medications: Active Medications Acetaminophen (Acetaminophen 325 Mg Tablet) 650 mg PO Q4HR PRN PRN Reason: Pain 1 to 4 Albuterol (Albuterol Neb 2.5 Mg/3 Ml) 2.5 mg INH RTQ4H PRN PRN Reason: Wheezing Last Admin: 07/21/20 07:32 Dose: 2.5 mg Documented by: Albuterol/Ipratropium (Ipratropium/Albuterol 3 Ml Neb) 3 ml INH RTQID PRN PRN Reason: Shortness of Air/Wheezing Last Admin: 07/21/20 19:46 Dose: 3 ml Documented by: Amlodipine Besylate (Amlodipine 5 Mg Tablet) 10 mg PO DAILY [facility] Last Admin: 07/22/20 11:05 Dose: 10 mg Documented by: Aspirin (Aspirin Ec 81 Mg Tablet) 81 mg PO DAILY [facility] Last Admin: 07/22/20 11:04 Dose: 81 mg Documented by: Atenolol (Atenolol 25 Mg Tablet) 50 mg PO DAILY [facility] Last Admin: 07/22/20 11:04 Dose: 50 mg Documented by: Budesonide (Budesonide 0.5 Mg/2 Ml Neb) 0.5 mg INH RTBID [facility] Last Admin: 07/22/20 07:19 Dose: 0.5 mg Documented by: Cholecalciferol (Cholecalciferol 25 Mcg Tablet) 25 mcg PO DAILY [facility] Last Admin: 07/22/20 11:04 Dose: 25 mcg Documented by: Docusate Sodium (Docusate Sodium 250 Mg Capsule) 250 - 500 mg PO DAILY [facility] Last Admin: 07/22/20 11:19 Dose: Not Given Documented by: Enoxaparin Sodium (Enoxaparin 30 Mg/0.3 Ml Syringe) 30 mg SUBQ DAILY [facility] Last Admin: 07/22/20 11:06 Dose: 30 mg Documented by: Ferrous Gluconate (Ferrous Gluconate 324 Mg Tablet) 324 mg PO BID [facility] Last Admin: 07/22/20 11:04 Dose: 324 mg Documented by: Formoterol Fumarate (Formoterol Fumarate Neb 20 Mcg/2 Ml) 20 mcg INH RTBID [facility] Last Admin: 07/22/20 07:19 Dose: 20 mcg Documented by: Hydralazine HCl (Hydralazine Inj 20 Mg/Ml Vial) 10 mg IVP QID PRN PRN Reason: Hypertensive Emergency Hydroxyurea (Hydroxyurea 500 Mg Capsule) 500 mg PO DAILY [facility] Last Admin: 07/22/20 11:06 Dose: Not Given Documented by: Sodium Chloride (Normal Saline 0.9%) 1,000 mls @ 83.333 mls/hr IV .Q12H [facility] Stop: 07/22/20 17:59 Last Admin: 07/22/20 10:52 Dose: 83.333 mls/hr Documented by: Ondansetron HCl (Ondansetron Odt 4 Mg Tablet) 4 mg TL Q6HR PRN PRN Reason: Nausea / Vomiting Polyethylene Glycol (Polyethylene Glycol 3350 17 Gm Packet) 17 gm PO DAILY [facility] Last Admin: 07/22/20 11:06 Dose: Not Given Documented by: Potassium Chloride (Potassium Chloride 10 Meq Capsule) 10 meq PO DAILY [facility] Last Admin: 07/22/20 11:04 Dose: 10 meq Documented by: Prednisone (Prednisone 5 Mg Tablet) 10 mg PO DAILY [facility] Last Admin: 07/22/20 11:04 Dose: 10 mg Documented by: Senna (Senna 8.6 Mg Tablet) 8.6 - 17.2 mg PO DAILY [facility] Last Admin: 07/22/20 11:06 Dose: Not Given Documented by: Sodium Chloride (Sodium Chloride Flush 0.9% 10 Ml Syringe) 10 ml IVP PRN PRN PRN Reason: NEEDED PER PROVIDER ORDERS Sodium Chloride (Sodium Chloride Flush 0.9% 10 Ml Syringe) 10 ml IVP 0100,0900,1700 [facility] Last Admin: 07/22/20 11:07 Dose: Not Given Documented by: Cholecalciferol (Vitamin D3) [Vitamin D3] 1,000 unit PO DAILY 12/13/12 Tiotropium [Spiriva] 1 puffs INH DAILY 12/13/12 amLODIPine [Norvasc] 5 mg PO DAILY 12/13/12 Aspirin [Aspirin EC] 81 mg ORAL DAILY 12/16/13 Atenolol 50 mg PO DAILY 03/27/15 Ferrous Gluconate 324 mg PO BID 07/25/16 Albuterol Sulfate [Proair Hfa Inhaler] 1 - 2 puffs INH Q4H PRN 10/08/17 predniSONE [Deltasone] 10 mg PO DAILY 10/08/17 Anastrozole 1 mg ORAL DAILY 07/20/20 Calcium Carb/Magnesium Hydrox [Antacid Extra Strngth Tab Chew] 1 each PO DAILY 07/20/20 Fluticasone/Salmeterol [Advair 100-50 Diskus] 1 each IH BID 07/20/20 Hydroxyurea [Hydrea] 500 mg PO DAILY 07/20/20 Potassium Chloride 10 meq PO DAILY 07/20/20
[2020-07-22] MEDS: IPRATROPIUM/ALBUTEROL 3 ML NEB INH PRN (19:45)
[2020-07-23] MEDS: BUDESONIDE 0.5 MG/2 ML NEB INH SCH (07:45)
[2020-07-23] MEDS: FORMOTEROL FUMARATE NEB 20 MCG/2 ML INH SCH (07:46)
[2020-07-23] MEDS: SENNA 8.6 MG TABLET PO SCH (08:55)
[2020-07-23] MEDS: ASPIRIN EC 81 MG TABLET PO SCH (08:56)
[2020-07-23] MEDS: amLODIPine 5 MG TABLET PO SCH (08:56)
[2020-07-23] MEDS: atenoloL 25 MG TABLET PO SCH (08:56)
[2020-07-23] MEDS: FERROUS GLUCONATE 324 MG TABLET PO SCH (08:57)
[2020-07-23] MEDS: POTASSIUM CHLORIDE 10 MEQ CAPSULE PO SCH (08:57)
[2020-07-23] MEDS: DOCUSATE SODIUM 250 MG CAPSULE PO SCH (08:57)
[2020-07-23] MEDS: polyethylene glycoL 3350 17 GM PACKET PO SCH (08:58)
[2020-07-23] MEDS: CHOLECALCIFEROL 25 MCG TABLET PO SCH (08:58)
[2020-07-23] MEDS: predniSONE 5 MG TABLET PO SCH (09:00)
[2020-07-23 11:05] VITALS: BP 166/87
[2020-07-23] MEDS: ENOXAPARIN 30 MG/0.3 ML SYRINGE SUBQ SCH (12:15)
[2020-07-23] MEDS: HYDROXYUREA 500 MG CAPSULE PO SCH (12:15)
--- NOTE | 2020-07-23 14:02 | Discharge Plan ---
"Discharge Plan for SNF / [facility] - Discharge Plan And Transition Orders Problem Reviewed?: Yes Disposition: 03 SNF DC/Xfer Condition: Serious Allergies and Adverse Reactions: Allergies Allergy/AdvReac Type Severity Reaction Status Date / Time venom-honey bee Allergy Severe ANAPHYLAXIS Verified 02/18/19 14:28 [bee venom (honey bee)] FARZANEH Inhibitors Allergy TONGUE Verified 02/18/19 14:28 SWELLING Health Concerns: weakness, COPD with home O2 dependent. Plan of Treatment: continue PT/OT in SNF pt took 2 liter of O2 at home. pt has no acute respiratory distress with 2 liter of O2 at hospital. pt may continue 2 liter of O2 with NC. Keep hydration for pt, pt's NABOR is resolved now. Pt's home amlodipine dosage 5 mg increase to 10 mg daily for her BP control Care Goals: stabilization and improvement of pt's medical conditions Assessment: discussed the care plan with pt, answered pt's questions, pt understood. - SNF / [facility] Transition Orders Admit to (Facility): [facility] [place] Under the care of (Name): Dr. Kavin Nielson Discharge Diagnosis: confused (resolved), generalized weakness, NABOR, dyspnea, COPD Medicare Certification Statement: I certify that Post Hospital custodial care is medically necessary on a continuing basis for any of the conditions for which she/he is receiving care during hospitalization. Notify PCP of admission and forward orders to primary provider for signature. Weight on admission and: Daily Call PCP immediately if weight increases by: 2 kg Other Notification Orders: Call PCP immediately if patient develops dyspnea, chest pain/tightness or edema. House Bowel Program: Yes Additional Bowel Program Orders: If no BM after 2 days, nurse may give M.O.M. 30ml PO PRN and/or ducolax Supp 1 MD and/or AREN 250mg P.O., and/or senna 1-2 tabs PO. On day 3 nurse may give repeat above order until residents constipation is resolved. Annual Influenza Vaccine (between Dec 22 and July 21): Yes Two-step PPD per [facility] [phone] or approved exception documents: Yes Treatments & Other Orders: continue PT/OT in SNF. pt took 2 liter of O2 at home. pt has no acute respiratory distress with 2 liter of O2 at hospital. pt may continue 2 liter of O2 with NC. Keep hydration for pt, pt's NABOR is resolved now. Pt's home amlodipine dosage 5 mg increase to 10 mg daily for her BP control Medication Orders: PLEASE REFER TO THE DISCHARGE MEDICATION LIST. Insulin Orders?: No - Diet Type: Geriatric Texture: Regular Liquids: Thin May have monthly special meal: Yes - Therapies | Activity Therapy: Evaluation | Treat if indicated: PT, OT Rehabilitation Potential: Maximize functional status Activity: Activity as Tolerated"
--- NOTE | 2020-07-23 14:18 | DISCHARGE SUMMARY ---
Discharge Summary Admit Date: 07/20/20 Discharge Date: 07/23/20 Discharging Provider: Jabier Pulido Primary Care Provider: Dr. Brissa Cook Condition at Discharge: Serious Discharge Disposition: SNF DC/Xfer Discharge Facility Name: [facility] - DIAGNOSES Discharge Diagnoses with Status of Each Condition: (1) Confused resolved. pt is alert and oriented. (2) Generalized weakness pt is accepted for [facility] on today, continue PT/OT in SNF (3) Acute kidney injury resolved (4) Elevated troponin nonspecific slight elevated. pt has no chest pain, EKG did not reveal acute ischemic change. EHCO is unremarkable. (5) Dyspnea improved. pt has 100% sats on 2 liter of O2. pt took 2 liter of O2 at home, pt did not show acute respiratory distress. pt does not appear to be in exacerbation. CT angiogram of the chest showed no pulmonary embolism and her lungs were clear. (6) COPD (chronic obstructive pulmonary disease) stable,This does not appear to be in exacerbation, continue home meds. - HPI History of Present Illness: refer from Dr. Jenkins's HPI on 07/20/20 This is a 79-year-old female with a past medical history significant for COPD on 2 and half liters of oxygen, hypertension, iron deficiency anemia who presents today complaining of shortness of breath for the past 8 days. She states she received her first Covid vaccine about 10 days ago and a few days later she developed difficulty breathing. She states she has not had any improvement over the past 8 days and so she decided to come to the emergency department today. She reports no chest pain or cough. She has been taking her inhalers. She is on prednisone chronically for COPD but when asked if she had been taking it, she initially said yes but then stated she not taken it for the past few days. She tells me she thought her electrical tech/project manager was trying to wean her off of it but she has her most recent after visit summary from her electrical tech/project manager earlier this month which stated to continue prednisone 10 mg daily. She states she does have a little memory loss which she attributes to her age. She lives at home alone. She reports no dysuria, urgency. Reports a mild headache but denies neck pain. She also feels generally weak over the past few days. She is not sure if this is due to her breathing. She denies any focal deficits or sensory loss. In the emergency department, she was found to be afebrile with a temperature of 36.6 C. Her heart rate is in the 90s. Blood pressure was elevated in the 140s systolic. She was not tachypneic and was saturating well on 2 L of oxygen via nasal cannula. Her labs were significant for a white count of 12.5, BUN of 32, anion gap of 21, creatinine of 1.4. Her troponin was elevated at 32.5 and recheck a few hours later was 42.5. Ammonia, CK, TSH, BMP were normal. Her urinalysis was unremarkable. She underwent a CT of the head which showed no acute abnormalities. CT angiogram of the chest was negative for PE and showed clear lungs. Given concern for change in mental status/confusion as well as the elevated troponin and her dyspnea, medicine was consulted for admission. She did receive a liter of normal saline and 100 mg of IV hydrocortisone in the emergency department. I did discuss goals of care the patient and she confirms that she is a DNR. - HOSPITAL COURSE Hospital Course: pt was admitted of shortness of breath. pt had CTA which show no PE and clear lung. pt took home O2. stress dose steroids given to pt by admission physician for pt's generalized weakness and concern for a component of adrenal insufficiency. pt became confused in the next day, then steroid was gradually weaned off, resume pt's home prednisone. pt became alert and oriented. PT/OT evaluated and treated for pt. pt was recommended to SNF. oncology social work was consulted for disposition. pt was d/c to SNF [facility]. - ALLERGIES Allergies/Adverse Reactions: Allergies Allergy/AdvReac Type Severity Reaction Status Date / Time venom-honey bee Allergy Severe ANAPHYLAXIS Verified 02/18/19 14:28 [bee venom (honey bee)] FARZANEH Inhibitors Allergy TONGUE Verified 02/18/19 14:28 SWELLING - MEDICATIONS Home Medications: Ambulatory Orders Medication Instructions Recorded Confirmed Cholecalciferol (Vitamin D3) 1,000 unit PO DAILY 12/13/12 07/21/20 [Vitamin D3] Tiotropium [Spiriva] 1 puffs INH DAILY 12/13/12 07/21/20 Aspirin [Aspirin EC] 81 mg ORAL DAILY 12/16/13 07/21/20 Atenolol 50 mg PO DAILY 03/27/15 07/21/20 Ferrous Gluconate 324 mg PO BID 07/25/16 07/21/20 Albuterol Sulfate [Proair Hfa 1 - 2 puffs INH Q4H PRN 10/08/17 07/21/20 Inhaler] predniSONE [Deltasone] 10 mg PO DAILY 10/08/17 07/21/20 Anastrozole 1 mg ORAL DAILY 07/20/20 07/21/20 Calcium Carb/Magnesium Hydrox 1 each PO DAILY 07/20/20 07/21/20 [Antacid Extra Strngth Tab Chew] Fluticasone/Salmeterol [Advair 1 each IH BID 07/20/20 07/21/20 100-50 Diskus] Hydroxyurea [Hydrea] 500 mg PO DAILY 07/20/20 07/21/20 Potassium Chloride 10 meq PO DAILY 07/20/20 07/21/20 Amlodipine Besylate [Norvasc] 10 mg PO DAILY #30 tablet 07/23/20 - PHYSICAL EXAM AT DISCHARGE General Appearance: positive: No acute distress, Alert. negative: Lethargic Eyes Bilateral: positive: Normal inspection, PERRL, No lid inflammation ENT: positive: ENT inspection nml, No signs of dehydration. negative: Purulent nasal drainage Neck: positive: Nml inspection, Trachea midline. negative: Thyromegaly, Tracheal deviation Respiratory: positive: Chest non-tender, No respiratory distress, Other (bilateraly diminished lung sound). negative: Wheezes, Rales Cardiovascular: positive: Regular rate & rhythm, No murmur. negative: Tachycardia, Bradycardia, Systolic murmur, Diastolic murmur Peripheral Pulses: positive: 2+ Abdomen: positive: Non-tender, Nml bowel sounds, No distention. negative: Tenderness Back: positive: Nml inspection Skin: positive: Color nml, Warm, Dry. negative: Cyanosis Extremities: positive: Non-tender, Nml appearance. negative: Calf tenderness Neurologic/Psychiatric: positive: Oriented x3, Motor nml, Sensation nml. negative: Weakness, Sensory loss, Facial droop, Slurred/abnml speech, Depressed mood/affect - LABS Result Diagrams: 07/22/20 05:41 07/22/20 05:41 - FOLLOW UP Follow Up: continue PT/OT in SNF pt took 2 liter of O2 at home. pt has no acute respiratory distress with 2 liter of O2 at hospital. pt may continue 2 liter of O2 with NC. Keep hydration for pt, pt's NABOR is resolved now. Pt's home amlodipine dosage 5 mg increase to 10 mg daily for her BP control - TIME SPENT Time Spent in Discharge (Minutes): 30
--- OUTSIDE RECORDS SUMMARY | 2020-07-27 22:55 | EXTERNAL MEDICAL SUMMARY RPT | Continuity of Care Document ---
:1940 Demographics Phone Unavailable Preferred Language Unknown Marital Status Unknown Judaism Affiliation Unknown Race Unknown Ethnic Group Unknown Author Organization [facility] Address [address] [id number] Phone Social History date description facility [phone]
== END 2020-07-23 16:16 | DRG 948 ==
LOC: EDUNIT# → ED 15:04 → SUPCPDRO 15:04 → MS2 21:30 → OBSVTOIN 07-21 14:26
PROVIDERS: ADMIT Internal Medicine; ATTEND Nurse Practitioner Gerontology
DX: J44.1 Chronic obstructive pulmonary disease with (acute) exacerbation (principal); R41.0 Disorientation, unspecified; N17.9 Acute kidney failure, unspecified; G93.40 Encephalopathy, unspecified; Z20.822 Contact with and (suspected) exposure to COVID-19; Z85.3 Personal history of malignant neoplasm of breast; J96.11 Chronic respiratory failure with hypoxia; R53.1 Weakness; R77.8 Other specified abnormalities of plasma proteins; J44.9 Chronic obstructive pulmonary disease, unspecified; Z99.81 Dependence on supplemental oxygen; I10 Essential (primary) hypertension; Z79.52 Long term (current) use of systemic steroids; T38.0X6A Underdosing of glucocorticoids and synthetic analogues, initial encounter; Z91.128 Patient's intentional underdosing of medication regimen for other reason; Z79.899 Other long term (current) drug therapy; Z87.891 Personal history of nicotine dependence; R41.3 Other amnesia; R51.9 Headache, unspecified; E86.0 Dehydration; Z66 Do not resuscitate; Z79.82 Long term (current) use of aspirin
CPT/HCPCS: 36415; 70450; 71275; 80048; 81003; 82140; 82550; 82803; 83735; 83880; 84100; 84443; 84484; 85025; 87631; 93005; 93306; 94640; 96372; 96374; 96376; 97161; 99285; A9270; J1650; J7120; J7512; J7626; Q9967; 0202U; 81001; 87086

== ENCOUNTER 2020-08-05 08:00 | Outpatient (CLI) | payer MEDICARE, OTHER ==
[2020-08-05 20:22] LABS: ALBUMIN 3.4 g/dL (3.2-5.5); ALBUMIN/GLOBULIN RATIO 0.9 (1.0-2.2); BILIRUBIN,TOTAL 0.4 mg/dL (0.2-1.0); CALCIUM 10.5 mg/dL (8.5-10.3); CREATININE 1.1 mg/dL (0.4-1.0); POTASSIUM 5.2 mmol/L (3.5-5.0); TOTAL PROTEIN 7.1 g/dL (6.7-8.2)
== END 2020-08-05 23:59 | disposition home or self-care (01) ==
LOC: LAB.R 08:00
DX: N17.9 Acute kidney failure, unspecified (principal)
CPT/HCPCS: 80053

== ENCOUNTER 2020-08-06 12:05 | Outpatient (CLI) | payer MEDICARE, OTHER ==
[2020-08-06 14:38] LABS: BASOPHILS # (AUTO) 0.1 10^3/uL (0.0-0.1); BASOPHILS % (AUTO) 0.9 %; EOSINOPHILS # (AUTO) 0.2 10^3/uL (0.0-0.7); EOSINOPHILS % (AUTO) 2.5 %; HCT - HEMATOCRIT 41.1 % (37.0-47.0); HGB - HEMOGLOBIN 12.5 g/dL (12.0-16.0); LYMPHOCYTES # (AUTO) 1.3 10^3/uL (1.5-3.5); LYMPHOCYTES % (AUTO) 19.6 %; MEAN CORPUSCULAR HEMOGLOBIN 27.7 pg (27.0-31.0); MEAN CORPUSCULAR HGB CONC 30.4 g/dL (32.0-36.0); MEAN CORPUSCULAR VOLUME 91.1 fL (81.0-99.0); MEAN PLATELET VOLUME 11.3 fL (7.9-10.8); MONOCYTES # (AUTO) 0.7 10^3/uL (0.0-1.0); MONOCYTES % (AUTO) 10.9 %; NEUTROPHILS # (AUTO) 4.4 10^3/uL (1.5-6.6); NEUTROPHILS % (AUTO) 64.5 %; PLT - PLATELET COUNT 279 10^3/uL (130-450); RED BLOOD COUNT 4.51 10^6/uL (4.20-5.40); RED CELL DISTRIBUTION WIDTH 14.7 % (12.0-15.0); WHITE BLOOD COUNT 6.8 x10^3/uL (4.8-10.8)
== END 2020-08-06 23:59 | disposition home or self-care (01) ==
LOC: LAB.R 12:05
DX: D50.9 Iron deficiency anemia, unspecified (principal)
CPT/HCPCS: 85025

== ENCOUNTER 2020-08-13 08:00 | Outpatient (CLI) | payer MEDICARE, OTHER ==
[2020-08-13 23:30] LABS: BASOPHILS % (AUTO) 0.5 %; EOSINOPHILS % (AUTO) 0.5 %; HCT - HEMATOCRIT 38.8 % (37.0-47.0); HGB - HEMOGLOBIN 12.1 g/dL (12.0-16.0); LYMPHOCYTES # (AUTO) 1.2 10^3/uL (1.5-3.5); LYMPHOCYTES % (AUTO) 15.7 %; MEAN CORPUSCULAR HEMOGLOBIN 28.5 pg (27.0-31.0); MEAN CORPUSCULAR HGB CONC 31.2 g/dL (32.0-36.0); MEAN CORPUSCULAR VOLUME 91.3 fL (81.0-99.0); MEAN PLATELET VOLUME 10.9 fL (7.9-10.8); MONOCYTES # (AUTO) 0.7 10^3/uL (0.0-1.0); MONOCYTES % (AUTO) 8.8 %; NEUTROPHILS # (AUTO) 5.6 10^3/uL (1.5-6.6); NEUTROPHILS % (AUTO) 72.4 %; PLT - PLATELET COUNT 213 10^3/uL (130-450); RED BLOOD COUNT 4.25 10^6/uL (4.20-5.40); RED CELL DISTRIBUTION WIDTH 15.6 % (12.0-15.0); WHITE BLOOD COUNT 7.8 x10^3/uL (4.8-10.8)
[2020-08-13 23:35] LABS: CALCIUM 9.4 mg/dL (8.5-10.3); CREATININE 0.9 mg/dL (0.4-1.0); POTASSIUM 3.9 mmol/L (3.5-5.0)
== END 2020-08-13 23:59 | disposition home or self-care (01) ==
LOC: LAB.R 08:00
PROVIDERS: ATTEND Family Medicine
DX: I10 Essential (primary) hypertension (principal); J44.9 Chronic obstructive pulmonary disease, unspecified; D50.9 Iron deficiency anemia, unspecified
CPT/HCPCS: 80048; 85025

== ENCOUNTER 2020-10-28 08:00 | Outpatient (CLI) | payer MEDICARE, OTHER ==
[2020-10-28 21:23] LABS: BASOPHILS % (AUTO) 0.5 %; EOSINOPHILS % (AUTO) 0.1 %; HCT - HEMATOCRIT 39.9 % (37.0-47.0); HGB - HEMOGLOBIN 12.8 g/dL (12.0-16.0); LYMPHOCYTES # (AUTO) 1.2 10^3/uL (1.5-3.5); LYMPHOCYTES % (AUTO) 13.1 %; MEAN CORPUSCULAR HEMOGLOBIN 32.7 pg (27.0-31.0); MEAN CORPUSCULAR HGB CONC 32.1 g/dL (32.0-36.0); MEAN CORPUSCULAR VOLUME 101.8 fL (81.0-99.0); MEAN PLATELET VOLUME 10.7 fL (7.9-10.8); MONOCYTES # (AUTO) 0.7 10^3/uL (0.0-1.0); MONOCYTES % (AUTO) 7.4 %; NEUTROPHILS # (AUTO) 6.8 10^3/uL (1.5-6.6); PLT - PLATELET COUNT 225 10^3/uL (130-450); RED BLOOD COUNT 3.92 10^6/uL (4.20-5.40); RED CELL DISTRIBUTION WIDTH 16.2 % (12.0-15.0); WHITE BLOOD COUNT 8.8 x10^3/uL (4.8-10.8)
[2020-10-28 21:31] LABS: CALCIUM 9.4 mg/dL (8.5-10.3); CREATININE 1.1 mg/dL (0.4-1.0); POTASSIUM 4.1 mmol/L (3.5-5.0)
== END 2020-10-28 23:59 | disposition home or self-care (01) ==
LOC: LAB.R 08:00
DX: T18.8XXD Foreign body in other parts of alimentary tract, subsequent encounter (principal); D64.9 Anemia, unspecified; L89.519 Pressure ulcer of right ankle, unspecified stage
CPT/HCPCS: 80048; 85025

== ENCOUNTER 2020-11-09 12:00 | Outpatient (CLI) | payer MEDICARE, OTHER ==
--- NOTE | 2020-11-09 19:16 | CONSULTATION NOTE ---
Palliative Care Consultation - Referral Referring Provider: Dr. Kavin Nielson Time of Visit: [id number] Referral setting: [facility] Referral Reason: End Stage COPD/Debility/Depression - Information Sources Records reviewed: Previous records reviewed History/Review of Systems obtained from: Patient, Family (sister/ANDREEA Higgins via phone and Niece in Law Gomez present) Exam limitations: Clinical condition (Mild STM impairment) - History of Present Illness Brief History of Present Illness: This is a 80-year-old female who was seen and evaluated today at [facility] due to end-stage COPD, short-term memory deficits, debility and advanced care planning with some underlying depression with her niece in Patricia olguin present and her sister/ANDREEA Blackman on speaker. The patient has a longstanding history of COPD. She did smoke cigarettes but quit several years ago. She quit smoking in approximately 2015. She has been very deconditioned and had been followed by production department supervisor at [facility] who began a taper of the patient's prednisone 10 mg that she had been on for several years. Unfortunately, the patient abruptly stopped her prednisone and this resulted in an acute hospitalization at [facility] in June 2020 per the patient's family reports. During that hospitalization she had acute dyspnea and acute kidney injury with an increase of her creatinine to 1.4 from a baseline of 1.0. During this hospitalization she does not recall much of the events and it has to be supported by her niece in Patricia olguin. She was eventually admitted in July 2020 to [facility] for skilled rehabilitation services and then has transferred to long-term care. The patient has developed an ulcer to her right lateral malleolus. She reports to discomfort if there is direct pressure to the site. Various wound interventions have been tried and presently she is receiving Medihoney directly to the site and protein supplementation for wound healing. She is no longer working with physical therapy but does periodically get on a stationary bike. She is essentially bedbound. She has a fear of developing pain and just wants to "get by decently." She does relay depressive symptoms and is able to sleep well. The food at the facility is hit or miss and she does have a decreased appetite. She is presently on mirtazapine 7.5 mg and would benefit from an increase to 15 mg. She is also presently back on prednisone 10 mg daily and 2.5 L of supplemental oxygen. She denies any cough at rest or shortness of breath in bed. This is an elderly appearing woman seen with supplemental oxygen in place sitting up in her hospital bed. Of note she denies any allergies to any pain medications. Medical/Surgical History - Past Medical History Cardiovascular: reports: Hypertension Respiratory: reports: COPD (on chronic oxygen supplementation and prednisone therapy), Pneumonia (2008) Neuro: None, TIA (2008) Endocrine/Autoimmune: reports: None GI: reports: Other SATELLITE INSTRUCTION FACILITATOR: reports: Breast cancer (Infiltrating ductal breast cancer) : reports: None, Kidney stones HEENT: reports: None Psych: reports: Depression Musculoskeletal: reports: Osteoarthritis, Osteoporosis (Reclast infusion), Other (Compression fracture; pelvic hip fracture; fracture of fibula and left knee) Derm: reports: None MRSA Hx?: No - Past Surgical History General: reports: Appendectomy Ortho: reports: Rotator cuff repair, Arthroscopic surgery, Other (b/l foot reconstruction) /SATELLITE INSTRUCTION FACILITATOR: reports: Dilation and currettage, Other HEENT: reports: Cataracts, Tonsil/Adenoidectomy - Substance History Use: Uses substance without health or social issues: NONE (Former tobacco abuse) Social History - Living Situation Living arrangement: custodial Support System: Prior to admission to [facility] after hospitalization the patient was residing at home independently. She was supported [place] her nephew and [place] Patricia continues to provide support to the patient with contact number [phone]. The patient's sister, Hiral is her DPOA with contact number [phone]. The patient was to her first who was an alcoholic. She grew up in [facility]. 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 They made their home in [place] approximately 20 years ago. 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 She speaks fondly of her second . Family History - Family History Family History: Mother: , Father: Family History Comment/Other: Noncontributory Medications/Allergies - Medications Home Medications: Ambulatory Orders Medication Instructions Recorded Confirmed Acetaminophen [Aphen] 650 mg PO Q4H PRN MDD NTE 3g/24h 11/15/20 11/15/20 Albuterol Sulf [Ventolin Hfa 1 puffs INH Q4HR PRN 11/15/20 11/15/20 Inhaler] Amlodipine Besylate [Norvasc] 10 mg PO DAILY 11/15/20 11/15/20 Anastrozole 1 mg PO DAILY 11/15/20 11/15/20 Ascorbic Acid 500 mg PO BID 11/15/20 11/15/20 Aspirin [Aspirin EC] 81 mg PO DAILY 11/15/20 11/15/20 Atenolol [Tenormin] 50 mg PO DAILY 11/15/20 11/15/20 Bisacodyl Supp [Dulcolax Supp] 1 applic MT DAILY PRN MDD if senna 11/15/20 11/15/20 not effective 4th day Calcium Carbonate [Tums (Calcium 500 mg PO DAILY PRN 11/15/20 11/15/20 Carbonate 500mg)] Cholecalciferol 1,000 unit PO DAILY 11/15/20 Ferrous Gluconate 1 tab PO DAILY 11/15/20 11/15/20 Fluticasone/Salmeterol [Advair 1 inh BID 11/15/20 11/15/20 100-50 Diskus] Hydroxyurea [Hydrea] 500 mg PO DAILY 11/15/20 11/15/20 Lidocaine Patch 4% 1 patch TP Q8H PRN 11/15/20 Mineral Oil [Mineral Oil Enema] 1 applic MT DAILY PRN 11/15/20 11/15/20 Mirtazapine 15 mg PO QPM 11/15/20 11/15/20 Multivitamin 1 tab PO DAILY 11/15/20 11/15/20 Protein Supplement 30 ml PO TID MDD wound healing 11/15/20 Senna [Senokot] 17.2 mg PO DAILY PRN 11/15/20 11/15/20 Tiotropium [place] [Spiriva] 1 puffs IN DAILY 11/15/20 11/15/20 polyethylene glycoL 3350 [Miralax] 17 g PO DAILY PRN MDD if no BM 11/15/20 11/15/20 after 3 days predniSONE [Deltasone] 10 mg PO DAILY 11/15/20 11/15/20 - Allergies Allergies/Adverse Reactions: Allergies Allergy/AdvReac Type Severity Reaction Status Date / Time venom-honey bee Allergy Severe ANAPHYLAXIS Verified 11/15/20 10:38 [bee venom (honey bee)] FARZANEH Inhibitors Allergy TONGUE Verified 11/15/20 10:38 SWELLING Review of Systems - Constitutional Constitutional: reports: Fatigue, Weight loss (11/03/2020 110.5lb). denies: Fever - Eyes Eyes: denies: Blurred vision - Ears, Nose & Throat Ears, Nose & Throat: denies: Hearing loss, Dry mouth - Cardiovascular Cardiovascular: denies: Chest pain, Edema, Lightheadedness - Respiratory Respiratory: reports: SOB with exertion, Other (on chronic supplemental oxygen). denies: Wheezing, SOB at rest - Gastrointestinal Gastrointestinal: reports: Constipation (intermittent that respods to prune juice), Other (appetite waxes and wanes but finds the food at facility not seasoned well enough and niece in law, Patricia, to bring in garlic powder at patient's request to have at bedside). denies: Vomiting - Genitourinary Genitourinary: denies: Dysuria - Musculoskeletal Musculoskeletal: reports: Assistive devices, Transfer issues. denies: Joint pain - Integumentary Integumentary: reports: Other (wound to right lateral mallelous) - Neurological Neurological: reports: General weakness, Memory problems (mild STM impairment) - Psychiatric Psychiatric: reports: Depression (see HPI) - Endocrine Endocrine: denies: Diabetes type 2 - Hematologic/Lymphatic Hematologic/Lymph: reports: Anemia - All Other Systems All Other Systems: reports: Reviewed and negative Physical Exam - Vital Signs Temperature: 36.7 C Pulse Rate: 66 O2 Saturation: 96 (on 2.5L of oxygen) Blood Pressure: 144/70 - Physical Exam General Appearance: positive: No acute distress, Alert, Other (sitting up in bed with right ankle floating to prevent pressure) Eyes Bilateral: positive: Normal inspection ENT: positive: No signs of dehydration Neck: positive: Trachea midline Cardiovascular: positive: Regular rate & rhythm Respiratory: positive: No respiratory distress, Breath sounds nml, Diminished in bases, Other (on supplemental oxygen, able to speak in full sentences). negative: Rales Abdomen: positive: Non-tender, Soft, Nml bowel sounds. 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 negative: Disoriented to place, Disoriented to time Palliative Care - POLST Patient has POLST: Yes POLST Status: DNR, Selective Treatment Pain: No pain Nausea: None Anorexia: Mild (1-3) Dyspnea: Moderate (4-6) Depression: Moderate (4-6) Anxiety: None Feelings of wellbeing/Perceived Quality of Life: Fair Sleep: Sleeps well Constipation: No (if issues, responds to prune juice) Performance Status: Patient has completed her skilled therapy services and is able to stand and transfer but not able to walk long distances. She is essentially better wheelchair-bound. She is able to self feed. Continent of bowel and bladder. PPS 50%. - Palliative Care Discussion: The patient has sustained a significant functional decline since June 2020 and at baseline had limited pulmonary reserve due to her chronic obstructive pulmonary disease. She has been on supplemental oxygen for a number of years and the acute functional decline followed after her abrupt cessation of her chronic prednisone. She is back on chronic prednisone and reports that her lungs are stable. She is a very pragmatic individual and wishes to "get everything in order." She is amenable to "just getting by." She very much does not want to be in any pain and is open to having the palliative care vertical lathe operator be onsite to address some end-of-life concerns. Her sister/DPOA and niece in law Patricia both wish to be included with decision making regarding the patient's medical care at the facility and this is supported and supplemented by the patient's wish. They have not been included in care conferences since the patient has been admitted and will make a request to the facility to follow through were regarding assistance with these measures at the patient and family's request. Impression and Recommendations - Palliative Care Impression: This is a pragmatic 80-year-old female who has end-stage COPD on chronic oxygen supplementation and prednisone therapy with depressive symptoms and underlying debility. She has experienced a significant functional decline and wishes to have support regarding advanced care planning with the additional support of her family. We will increase her mirtazapine from 7.5 mg to 50 mg nightly with the patient's agreement. Palliative care will continue to provide support, build rapport, care coordination, pain and symptom management as well as anticipatory guidance. Recommendations/Counseling Done: 1. Depression. Likely multifactorial given chronic comorbidities and present circumstance. Supportive listening provided. Will benefit from additional support from palliative care vertical lathe operator and will make referral at the patient's request. Increase mirtazapine to 15 mg nightly. Reviewed purpose, dose and side effects with both the patient and her family with understanding verbalized. Advised may take 3 to 4 weeks to see full effect. Continue to monitor and adjust regimen based on patient's response. 2. End-stage COPD. On chronic supplemental oxygen. Contributing to her underlying debility. Continue prednisone 10 mg daily as ordered by a PCP. Continue Spiriva and Advair as ordered. She has albuterol as needed for wheezing or shortness of breath. Continue to provide support and develop advanced care planning. 3. Right lateral medial less wounds. Likely pressure related. Patient offloads. Followed by wound care management at the facility. Presently on a course of Medihoney. Please see nursing notes and wound care management notes for further details. On protein supplement for assistance with wound healing. 4. Protein calorie malnutrition in the setting of end-stage COPD with slow wound healing to right lateral medialis. Monitor weight loss trends. Will increase mirtazapine not only for depression but for appetite stimulation as well. Patient's niece in law to bring in additional seizing to allow the patient to more adequately enjoy her food. Continue to monitor. 5. Advanced care planning. Patient has POLST in place as DN AR with selective treatment. The patient is very clear that she wishes to have her family included in medical decision-making. The patient does have some mild cognitive impairment related to short-term memory and would benefit from further teasing in the future and may be contributory due to her history of TIA. We will continue to build rapport and work on additional advance care planning plans. CC: Palliative Care Quality Specialist eater than 50% of time spent in counseling and coordination of care with patient, niece in law and sister/DPOA; review of medical records; review of palliative philosophy; examination of the patient; discussion regarding treatment of depression. Updated facility PCP regarding POC. Disclaimer: The chart note was formulated using voice recognition technology and unfortunately sound alike errors may occur.
== END 2020-11-09 12:01 | disposition home or self-care (01) ==
LOC: PC 12:00
PROVIDERS: ATTEND Nurse Practitioner Family
DX: Z51.5 Encounter for palliative care (principal); F32.9 Major depressive disorder, single episode, unspecified; J44.9 Chronic obstructive pulmonary disease, unspecified; L89.519 Pressure ulcer of right ankle, unspecified stage; E46 Unspecified protein-calorie malnutrition; Z87.891 Personal history of nicotine dependence; Z99.81 Dependence on supplemental oxygen; Z66 Do not resuscitate
CPT/HCPCS: 99306

== ENCOUNTER 2020-11-30 12:10 | Outpatient (CLI) | payer MEDICARE, OTHER ==
--- NOTE | 2020-11-30 13:22 | CONSULTATION NOTE ---
Palliative Care Follow Up - Referral Referring Provider: Dr. Kavin Nielson Time of Visit: [id number] Referral setting: Long-Term Facility Referral Reason: Depression/Weight Loss/Constipation - Information Sources Records reviewed: Previous records reviewed History/Review of Systems obtained from: Patient, Nursing Exam limitations: Clinical condition (STM impairment) - History of Present Illness Update Brief HPI Update: Is a 80-year-old female who was seen in follow-up today at [facility] due to end-stage COPD, debility, weight loss, and depression. Please see detailed history dictated in HPI on 11/09/2020. The patient continues to be followed by wound care management at the facility due to an ulcer to her right lateral malleolus. The patient reports that it is "gradually improving." She continues on protein supplementation for wound healing. She continues to not be impressed by the food at the facility. Her niece in law brought in garlic powder for seasoning however, she would prefer garlic salt for seasoning. She had a documented weight of 122.4 pounds on admission on 07/23/2020 and prior to increase of mirtazapine to 50 mg nightly on 11/09 the patient had a documented weight of 110.5 pounds on 11/03. The patient does not appreciate that she has gained weight however, her great has weight has gradually improved with last documented weight on 11/26 as 113.4 pounds. She reports to sleeping well at night with no reports of insomnia. She is no longer ambulatory and is frustrated that she is unable to stand on her own. She is presently working with onsite physical therapy for strengthening. She is performing exercises on a equipment in the facility and reports increased length of time on the bikes indicating endurance. 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 She is typically having a bowel movement every 2 to 4 days. She was administered as needed MiraLAX 1 8 noon with positive effects. The patient is bothered that she was administered MiraLAX but she prefers to not having additional medication and to manage her bowels through utilization of prune juice. She is not open to routine administration of MiraLAX. This is an elderly appearing woman in [facility] with supplemental oxygen's in place lying in her hospital bed with no evidence of acute distress. Past Medical History: Patient has a past medical history of hypertension, COPD on chronic oxygen supplementation and prednisone therapy; pneumonia 2007, TIA 2007, infiltrating ductal breast cancer; kidney stones, osteoarthritis, osteoporosis history of Reclast infusion; compression fracture; pelvic hip fracture; fracture of fibula and left knee; bilateral foot reconstruction; cataract surgery; rotator cuff repair; former tobacco abuse use. Social History - Living Situation Living arrangement: custodial Living Situation: Alone Support System: Prior to admission at [facility] in July 2020 the patient had a hospitalization and was residing at home independently prior to that hospitalization. She is supported by her nephew and niece in law, Patricia who are local on the [place]. Patricia provide support and visits the patient on a regular basis with contact number [phone]. The patient's sister, Hiral is her DPOA with contact number [phone]. The patient was residing in [place] for approximately the last 20 years. She is . No children. Palliative care [facility] has been requested to follow. Medications/Allergies - Medications Home Medications: Ambulatory Orders Medication Instructions Recorded Confirmed Acetaminophen [Aphen] 650 mg PO Q4H PRN MDD NTE 3g/24h 11/15/20 11/15/20 Albuterol Sulf [Ventolin Hfa 1 puffs INH Q4HR PRN 11/15/20 11/15/20 Inhaler] Amlodipine Besylate [Norvasc] 10 mg PO DAILY 11/15/20 11/15/20 Anastrozole 1 mg PO DAILY 11/15/20 11/15/20 Ascorbic Acid 500 mg PO BID 11/15/20 11/15/20 Aspirin [Aspirin EC] 81 mg PO DAILY 11/15/20 11/15/20 Atenolol [Tenormin] 50 mg PO DAILY 11/15/20 11/15/20 Bisacodyl Supp [Dulcolax Supp] 1 applic NE DAILY PRN MDD if senna 11/15/20 11/15/20 not effective 4th day Calcium Carbonate [Tums (Calcium 500 mg PO DAILY PRN 11/15/20 11/15/20 Carbonate 500mg)] Cholecalciferol 1,000 unit PO DAILY 11/15/20 Ferrous Gluconate 1 tab PO DAILY 11/15/20 11/15/20 Fluticasone/Salmeterol [Advair 1 inh BID 11/15/20 11/15/20 100-50 Diskus] Hydroxyurea [Hydrea] 500 mg PO DAILY 11/15/20 11/15/20 Lidocaine Patch 4% 1 patch TP Q8H PRN 11/15/20 Mineral Oil [Mineral Oil Enema] 1 applic NE DAILY PRN 11/15/20 11/15/20 Mirtazapine 15 mg PO QPM 11/15/20 11/15/20 Multivitamin 1 tab PO DAILY 11/15/20 11/15/20 Protein Supplement 30 ml PO TID MDD wound healing 11/15/20 Senna [Senokot] 17.2 mg PO DAILY PRN 11/15/20 11/15/20 Tiotropium [place] [Spiriva] 1 puffs IN DAILY 11/15/20 11/15/20 polyethylene glycoL 3350 [Miralax] 17 g PO DAILY PRN MDD if no BM 11/15/20 11/15/20 after 3 days predniSONE [Deltasone] 10 mg PO DAILY 11/15/20 11/15/20 - Allergies Allergies/Adverse Reactions: Allergies Allergy/AdvReac Type Severity Reaction Status Date / Time venom-honey bee Allergy Severe ANAPHYLAXIS Verified 11/15/20 10:38 [bee venom (honey bee)] FARZANEH Inhibitors Allergy TONGUE Verified 11/15/20 10:38 SWELLING Review of Systems - Constitutional Constitutional: reports: Fatigue, Weight loss (11/03/2020 110.5lb). denies: Fever - Eyes Eyes: denies: Irritation - Ears, Nose & Throat Ears, Nose & Throat: denies: Hearing aids - Cardiovascular Cardiovascular: reports: Exertional dyspnea. denies: Chest pain, Edema - Respiratory Respiratory: reports: SOB with exertion, Other (on chronic supplemental oxygen). denies: Wheezing, SOB at rest - Gastrointestinal Gastrointestinal: reports: Constipation (see HPI), Other (appetite waxes and wanes but finds the food at facility not seasoned well). denies: Vomiting - Genitourinary Genitourinary: denies: Dysuria - Musculoskeletal Musculoskeletal: reports: Assistive devices, Transfer issues. denies: Joint pain - Integumentary Integumentary: reports: Other (wound to right lateral mallelous) - Neurological Neurological: reports: General weakness, Memory problems (mild STM impairment) - Psychiatric Psychiatric: reports: Depression (see HPI) - Hematologic/Lymphatic Hematologic/Lymph: reports: Anemia - All Other Systems All Other Systems: reports: Reviewed and negative Physical Exam - Vital Signs Temperature: 36.0 C Pulse Rate: 70 O2 Saturation: 96 (on oxygen) Blood Pressure: 128/65 - Physical Exam General Appearance: positive: No acute distress, Alert, Other (resting in bed with right ankle floating to prevent pressure) Eyes Bilateral: positive: Normal inspection ENT: positive: No signs of dehydration Neck: positive: Trachea midline Cardiovascular: positive: Regular rate & rhythm Respiratory: positive: No respiratory distress, Breath sounds nml, Rales (LLL), Other (on supplemental oxygen, able to speak in full sentences) Abdomen: positive: Non-tender, Soft, Nml bowel sounds Skin: positive: Pressure wound (right lateral mallelous with dressing c/d/i--see nursing notes for full details) Extremities: positive: No pedal edema, Other (+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 She is presently working with onsite physical therapy for strengthening and ultimately, her goal is to be able to stand and pivot independently. Presently, she is unable to ambulate. The patient today does express that she has a fear of dying in the facility. Her house is to be on the market in a few weeks and then she can reports she will "be stuck here." She is always been a very pragmatic individual however, feels that at times her needs are not adequately responded to in a timely fashion at the facility and she has made her concerns aware to management. Cont inue to encourage the patient to express her concerns to management for change. The patient does display a evidence of constipation however, she is very adamant that she does not want any standing bowel regimen and wishes to continue with her as needed prune juice as it is typically effective for short-term constipation. The patient has responded to increase of mirtazapine 50 mg nightly with imp rovement of insomnia as well as overall noted weight gain up to 113.4 pounds. However, the patient does not appreciate the approximate 3 pound weight gain since last evaluated in October 2020 despite reorientation. Impression and Recommendations - Palliative Care Impression: This is a 80-year-old female with end-stage COPD on chronic oxygen supplementation and prednisone therapy with depressive symptoms and underlying debility. She has experienced a significant functional decline and is presently working with onsite physical therapy. She has responded positively to the increase of mirtazapine to 15 mg nightly and noted improvement of her weight to 113.4 pounds. Palliative care will continue to provide support, build rapport, care coordination with symptom management as well as anticipatory guidance. Recommendations/Counseling Done: 1. Protein calorie malnutrition in the setting of end-stage COPD with slow wound healing to right lateral malleolus. Monitor weight loss trends. Improvement of patient's weight up to 113.4 pounds. Weight on admission in July 2020 was 122.4 pounds. Continue mirtazapine 50 mg nightly for depressive symptoms as well as appetite stimulation. Continue to monitor. 2. Depression. Multifactorial given chronic comorbidities and present facility environment. Supportive listening provided. Encouraged to continue to express her needs. We will rerequest palliative care [facility] to follow-up. Continue mirtazapine 50 mg nightly. Continue to monitor and adjust regimen based on the patient's response. 3. End-stage COPD. On chronic supplemental oxygen. End-stage COPD is contributing to her underlying debility. Continue prednisone 10 mg daily as or dered by PCP. Continue Spiriva and Advair as ordered. She has albuterol as needed for wheezing or shortness of breath. Continue to provide support and develop goals of care moving forward. Total time spent 25 minutes with greater than 50% of the spent in counseling and coordination of care with the patient; examination of the patient; review of medical record; symptom management. Contacted the patient's niece in law Patricia with patient's permission at [phone]. Patient's did not wish for her sister/ANDREEA Blackman to be contacted at the end of the visit. Disclaimer: The chart note was formulated using voice recognition technology and unfortunately sound alike errors may occur.
== END 2020-11-30 12:11 | disposition home or self-care (01) ==
LOC: PC 12:10
PROVIDERS: ATTEND Nurse Practitioner Family
DX: Z51.5 Encounter for palliative care (principal); E46 Unspecified protein-calorie malnutrition; J44.9 Chronic obstructive pulmonary disease, unspecified; L89.519 Pressure ulcer of right ankle, unspecified stage; F32.9 Major depressive disorder, single episode, unspecified; Z99.81 Dependence on supplemental oxygen; Z66 Do not resuscitate
CPT/HCPCS: 99309

== ENCOUNTER 2021-01-27 10:55 | Outpatient (CLI) | payer MEDICARE, OTHER ==
--- NOTE | 2021-01-27 23:19 | CONSULTATION NOTE ---
Palliative Care Follow Up - Referral Referring Provider: Dr. Kavin Nielson Time of Visit: Initiated 1055 Referral setting: [facility] Referral Reason: Depression/Weight Loss/Cognitive Impairment - Information Sources Records reviewed: Previous records reviewed History/Review of Systems obtained from: Patient Exam limitations: Clinical condition (STM impairment) - History of Present Illness Update Brief HPI Update: This is a 80-year-old female who was seen in follow-up today at [facility] due to end-stage COPD, history of weight loss, depression and debility. Please see detailed history dictated in HPI on 11/09/2020. Patient continues to have a wound to her right lateral malleolus. She continues to be frustrated that she requires frequent dressing changes and is on protein supplementation for wound healing. The patient was previously on mirtazapine 50 mg nightly and this was d iscontinued. However, the patient has had a gradual increase in her weight with last weight at 115.8 pounds. She reports she is sleeping well at night with no evidence of insomnia. She continues to remain nonambulatory. She demonstrates cognitive impairment and again does not recall meeting this DOUGHMAKER. Had previously requested palliative care inside steward/stewardess to provide support and was not open to that meeting at the time. Readdress today and would be open for palliative care inside steward/stewardess to resume visits. This is an elderly appearing woman in [facility] with supplemental oxygen in place lying in her hospital bed with no evidence of acute distress. Past Medical History: Patient has a past medical history of hypertension, COPD on chronic oxygen supplementation and prednisone therapy; pneumonia 2007, TIA 2007, infiltrating ductal breast cancer; kidney stones, osteoarthritis, osteoporosis history of Reclast infusion; compression fracture; pelvic hip fracture; fracture of fibula and left knee; bilateral foot reconstruction; cataract surgery; rotator cuff repair; former tobacco abuse use. Social History - Living Situation Living arrangement: prison Support System: Prior to admission at [facility] in July 2020 the patient had a hospitalization and was residing at home independently prior to that hospitalization. She is supported by her nephew and niece in law, Patricia who are local on the [place]. Patricia provide support and visits the patient on a regular basis with contact number [phone]. The patient's sister, Hiral is her DPOA with contact number [phone]. The patient was residing in [place] for approximately the last 20 years. She is . No children. Her home was sold over the Summer and she finds some difficulty in discussing this. A picture of her mother was on the side table and when mentioned she had found memories to report of her mother and reminiscing regarding Palliative care inside steward/stewardess is following. Medications/Allergies - Medications Home Medications: Ambulatory Orders Medication Instructions Recorded Confirmed Acetaminophen [Aphen] 650 mg PO Q4H PRN MDD NTE 3g/24h 11/15/20 11/15/20 Albuterol Sulf [Ventolin Hfa 1 puffs INH Q4HR PRN 11/15/20 11/15/20 Inhaler] Amlodipine Besylate [Norvasc] 10 mg PO DAILY 11/15/20 11/15/20 Anastrozole 1 mg PO DAILY 11/15/20 11/15/20 Ascorbic Acid 500 mg PO BID 11/15/20 11/15/20 Aspirin [Aspirin EC] 81 mg PO DAILY 11/15/20 11/15/20 Atenolol [Tenormin] 50 mg PO DAILY 11/15/20 11/15/20 Bisacodyl Supp [Dulcolax Supp] 1 applic ME DAILY PRN MDD if senna 11/15/20 11/15/20 not effective 4th day Calcium Carbonate [Tums (Calcium 500 mg PO DAILY PRN 11/15/20 11/15/20 Carbonate 500mg)] Cholecalciferol 1,000 unit PO DAILY 11/15/20 Ferrous Gluconate 1 tab PO DAILY 11/15/20 11/15/20 Fluticasone/Salmeterol [Advair 1 inh BID 11/15/20 11/15/20 100-50 Diskus] Hydroxyurea [Hydrea] 500 mg PO DAILY 11/15/20 11/15/20 Lidocaine Patch 4% 1 patch TP Q8H PRN 11/15/20 Mineral Oil [Mineral Oil Enema] 1 applic ME DAILY PRN 11/15/20 11/15/20 Multivitamin 1 tab PO DAILY 11/15/20 11/15/20 Protein Supplement 30 ml PO TID MDD wound healing 11/15/20 Senna [Senokot] 17.2 mg PO DAILY PRN 11/15/20 11/15/20 Tiotropium [place] [Spiriva] 1 puffs IN DAILY 11/15/20 11/15/20 polyethylene glycoL 3350 [Miralax] 17 g PO DAILY PRN MDD if no BM 11/15/20 11/15/20 after 3 days predniSONE [Deltasone] 10 mg PO DAILY 11/15/20 11/15/20 - Allergies Allergies/Adverse Reactions: Allergies Allergy/AdvReac Type Severity Reaction Status Date / Time venom-honey bee Allergy Severe ANAPHYLAXIS Verified 11/15/20 10:38 [bee venom (honey bee)] FARZANEH Inhibitors Allergy TONGUE Verified 11/15/20 10:38 SWELLING Review of Systems - Constitutional Constitutional: reports: Fatigue, Poor appetite (due to facility food not to her liking and has garlic salt at bedside to assist with flavoring), Weight gain (weight 115.8lb 01/19; 11/03/2020 110.5lb). denies: Fever - Eyes Eyes: reports: Irritation - Ears, Nose & Throat Ears, Nose & Throat: denies: Nasal congestion - Cardiovascular Cardiovascular: reports: Exertional dyspnea. denies: Edema - Respiratory Respiratory: reports: SOB with exertion, Other (on chronic supplemental oxygen). denies: Wheezing, SOB at rest - Gastrointestinal Gastrointestinal: denies: Abdominal pain, Vomiting - Genitourinary Genitourinary: denies: Dysuria - Musculoskeletal Musculoskeletal: reports: Assistive devices, Transfer issues. denies: Joint pain - Integumentary Integumentary: reports: Other (wound to right lateral mallelous that is persistent) - Neurological Neurological: reports: General weakness, Memory problems (mild STM impairment) - Psychiatric Psychiatric: reports: Depression (no longer on remeron per patient request) - Hematologic/Lymphatic Hematologic/Lymph: reports: Anemia - All Other Systems All Other Systems: reports: Reviewed and negative Physical Exam - Vital Signs Temperature: 36.3 C Pulse Rate: 73 O2 Saturation: 98 (on oxygen) Blood Pressure: 118/74 - Physical Exam General Appearance: positive: No acute distress, Alert, Other (resting in bed with right ankle floating to prevent pressure) Eyes Bilateral: positive: Normal inspection ENT: positive: No signs of dehydration Neck: positive: Trachea midline Cardiovascular: positive: Regular rate & rhythm Respiratory: positive: No respiratory distress, Rales (LLL), Other (on supplemental oxygen, able to speak in full sentences) Abdomen: positive: Non-tender, Soft, Nml bowel sounds Skin: positive: Pressure wound (right lateral mallelous with dressing c/d/i--see nursing notes for full details) Extremities: positive: No pedal edema, Other (+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 She continues to be unable to ambulate. She continues to have a persistent wound to her right lateral malleolus despite a protein supplementation and wound care within the facility. She finds is extremely frustrating and limiting. She had previously responded to mirtazapine which was eventually discontinued for her depression, weight loss, and insomnia. Patient expresses today that the loss of her home and having to sell it has been more difficult than she initially perceived. She is disheartened by her present circumstance however she reports that she is "not ready to yet." She would benefit from resumption of palliative care services and she is open to this. However, given her cognitive impairment will require reorientation regarding her agreement and support of this. Impression and Recommendations - Palliative Care Impression: This is a 80-year-old female with end-stage COPD with chronic oxygen supplementation and prednisone therapy with history of depressive symptoms, right lateral malleolus persistent wound and debility. She is no longer on mirtazapine for depressive symptoms and appears to be at baseline with her mood and is open to reinitiation of palliative care inside steward/stewardess support. Palliative care will continue to provide support, care coordination with symptom management as well as anticipatory guidance. Recommendations/Counseling Done: 1. Protein calorie malnutrition in the setting of end-stage COPD with slow wound healing to right lateral malleolus. Monitor weight trends. Continue protein supplementation. To continue to encourage foods that patient finds pleasurable. Continue to monitor. 2. Wound to right lateral malleolus. Protein calorie malnutrition and multiple comorbidities contributing. Continue local wound care as ordered by facility PCP. 3. Depression. Multifactorial given chronic comorbidities and facility environment. Supportive and empathetic listening provided today. Patient no longer on mirtazapine. Patient is amenable to allowing the palliative care inside steward/stewardess to refollow. We will continue to encourage reorientation regarding her agreement of this. Admitting reconsider antidepressive medication in the future as the patient allows and signs and symptoms of worsening mood. 4. End-stage COPD. On chronic oxygen supplementation. End-stage COPD is contributing to her underlying debility. Continue prednisone 10 mg daily as ordered by her PCP. Continue Spiriva and Advair as ordered. She has albuterol as needed for wheezing or shortness of breath. Continue to provide support and tease out goals of care moving forward. CPT 99207 Message left for patient's niece in law Patricia at the request of the patient to update regarding plan of care with contact number [phone]. Awaiting return call. Updated palliative care inside steward/stewardess regarding patient's agreement for resumption of support. Disclaimer: The chart note was formulated using voice recognition technology and unfortunately sound alike errors may occur.
== END 2021-01-27 10:56 | disposition home or self-care (01) ==
LOC: PC 10:55
PROVIDERS: ATTEND Nurse Practitioner Family
DX: Z51.5 Encounter for palliative care (principal); E46 Unspecified protein-calorie malnutrition; S91.001A Unspecified open wound, right ankle, initial encounter; F32.A Depression, unspecified; J44.9 Chronic obstructive pulmonary disease, unspecified; Z99.81 Dependence on supplemental oxygen; Z79.52 Long term (current) use of systemic steroids; Z66 Do not resuscitate
CPT/HCPCS: 99308

== ENCOUNTER 2021-01-28 10:47 | Outpatient (CLI) | payer MEDICARE, OTHER ==
[2021-01-28 10:55] LABS: BILIRUBIN,URINE NEGATIVE (NEGATIVE); GLUCOSE, URINE (UA) NEGATIVE (NEGATIVE); KETONES,URINE (UA) NEGATIVE (NEGATIVE); LEUKOCYTE ESTERASE, URINE SMALL (NEGATIVE); NITRITE,URINE POSITIVE (NEGATIVE); OCCULT BLOOD,URINE NEGATIVE (NEGATIVE); PROTEIN,URINE NEGATIVE (NEGATIVE); UROBILINOGEN,URINE 0.2 (NORMAL) E.U./dL (NORMAL)
[2021-01-28 11:16] LABS: BACTERIA,URINE Moderate /HPF (None Seen); CLARITY,URINE CLEAR (CLEAR); RBC,URINE 0-5 /HPF (0-5); SQUAMOUS EPITHELIAL CELL,UR RARE Squamous (<= Few)
== END 2021-01-28 10:48 | disposition home or self-care (01) ==
LOC: LAB 10:47 → LAB.R 10:48
PROVIDERS: ATTEND Family Medicine
DX: N39.0 Urinary tract infection, site not specified (principal)
CPT/HCPCS: 81001; 87086; 87181

== ENCOUNTER 2021-02-07 08:00 | Outpatient (CLI) | payer MEDICARE, OTHER ==
[2021-02-07 18:54] LABS: BASOPHILS # (AUTO) 0.1 10^3/uL (0.0-0.1); BASOPHILS % (AUTO) 0.9 %; EOSINOPHILS % (AUTO) 0.1 %; HCT - HEMATOCRIT 41.4 % (37.0-47.0); LYMPHOCYTES # (AUTO) 0.7 10^3/uL (1.5-3.5); LYMPHOCYTES % (AUTO) 7.6 %; MEAN CORPUSCULAR HEMOGLOBIN 32.9 pg (27.0-31.0); MEAN CORPUSCULAR HGB CONC 31.4 g/dL (32.0-36.0); MEAN CORPUSCULAR VOLUME 104.8 fL (81.0-99.0); MEAN PLATELET VOLUME 12.2 fL (7.9-10.8); MONOCYTES # (AUTO) 0.3 10^3/uL (0.0-1.0); MONOCYTES % (AUTO) 3.5 %; NEUTROPHILS # (AUTO) 7.6 10^3/uL (1.5-6.6); NEUTROPHILS % (AUTO) 85.8 %; PLT - PLATELET COUNT 153 10^3/uL (130-450); RED BLOOD COUNT 3.95 10^6/uL (4.20-5.40); RED CELL DISTRIBUTION WIDTH 14.4 % (12.0-15.0); WHITE BLOOD COUNT 8.9 x10^3/uL (4.8-10.8)
[2021-02-07 19:06] LABS: ALBUMIN 3.5 g/dL (3.2-5.5); ALBUMIN/GLOBULIN RATIO 1.5 (1.0-2.2); BILIRUBIN,TOTAL 0.8 mg/dL (0.2-1.0); CALCIUM 9.9 mg/dL (8.5-10.3); CREATININE 0.9 mg/dL (0.4-1.0); POTASSIUM 4.3 mmol/L (3.5-5.0); TOTAL PROTEIN 5.9 g/dL (6.7-8.2)
== END 2021-02-07 23:59 | disposition home or self-care (01) ==
LOC: LAB.R 08:00
PROVIDERS: ATTEND Family Medicine
DX: E11.42 Type 2 diabetes mellitus with diabetic polyneuropathy (principal); D64.9 Anemia, unspecified
CPT/HCPCS: 80053; 82533; 85025

== ENCOUNTER 2021-03-23 13:50 | Outpatient (CLI) | payer MEDICARE, OTHER ==
--- NOTE | 2021-03-23 16:52 | XRAY Report ---
PROCEDURE: Ankle 2 View RT INDICATIONS: Pressure Ulcer of Right Ankle TECHNIQUE: 2 views of the ankle were acquired. COMPARISON: None FINDINGS: Bones: No fractures or dislocations. ORIF of the first metatarsal. Ankle mortise is normally aligned . No suspicious bony lesions. Soft tissues: No tibiotalar joint effusion. Achilles tendon appears normal. IMPRESSION: No acute fracture. No osseous lesion. If symptoms and/or clinical suspicion for patholog y continue, further assessment with repeat plain films, or advanced imaging (e.g., CT, MRI, or bone s can) is recommended for further assessment. Reviewed by: Anton Merlos MD on 03/23/2021 4:51 PM PST Approved by: Anton Merlos MD on 03/23/2021 4:51 PM PST Station ID: [id number]
== END 2021-03-23 13:51 | disposition home or self-care (01) ==
LOC: DI 13:50
PROVIDERS: ATTEND Family Medicine
DX: L89.519 Pressure ulcer of right ankle, unspecified stage (principal)

== ENCOUNTER 2021-03-28 10:37 | Outpatient (CLI) | payer MEDICARE, OTHER | END 2021-03-28 10:38 | disposition home or self-care (01) | LOC: LAB.R 10:37 | PROVIDERS: ATTEND Family Medicine | DX: L97.511 Non-pressure chronic ulcer of other part of right foot limited to breakdown of skin (principal) | CPT/HCPCS: 86140 ==

== ENCOUNTER 2021-05-12 15:59 | Outpatient (CLI) | payer MEDICARE, OTHER ==
[2021-05-12 16:25] LABS: BASOPHILS % (AUTO) 0.4 %; EOSINOPHILS % (AUTO) 0.5 %; HCT - HEMATOCRIT 41.2 % (37.0-47.0); HGB - HEMOGLOBIN 13.1 g/dL (12.0-16.0); LYMPHOCYTES # (AUTO) 0.8 10^3/uL (1.5-3.5); LYMPHOCYTES % (AUTO) 9.4 %; MEAN CORPUSCULAR HEMOGLOBIN 33.3 pg (27.0-31.0); MEAN CORPUSCULAR HGB CONC 31.8 g/dL (32.0-36.0); MEAN CORPUSCULAR VOLUME 104.8 fL (81.0-99.0); MEAN PLATELET VOLUME 10.9 fL (7.9-10.8); MONOCYTES # (AUTO) 0.4 10^3/uL (0.0-1.0); MONOCYTES % (AUTO) 5.1 %; NEUTROPHILS # (AUTO) 6.6 10^3/uL (1.5-6.6); NEUTROPHILS % (AUTO) 82.6 %; PLT - PLATELET COUNT 222 10^3/uL (130-450); RED BLOOD COUNT 3.93 10^6/uL (4.20-5.40); RED CELL DISTRIBUTION WIDTH 13.9 % (12.0-15.0)
[2021-05-12 16:28] LABS: ALBUMIN 3.5 g/dL (3.2-5.5); ALBUMIN/GLOBULIN RATIO 1.4 (1.0-2.2); ALKALINE PHOSPHATASE 50 IU/L (42-121); ALT ALANINE AMINOTRANSFERASE 24 IU/L (10-60); AST ASPARTATE AMINOTRANSFERASE 20 IU/L (10-42); BILIRUBIN,TOTAL 0.7 mg/dL (0.2-1.0); BUN - BLOOD UREA NITROGEN 26 mg/dL (6-20); CALCIUM 9.3 mg/dL (8.5-10.3); CARBON DIOXIDE - CO2 27 mmol/L (21-32); CHLORIDE 100 mmol/L (101-111); GFR - MDRD 53 (>89); GLUCOSE 115 mg/dL (70-100); POTASSIUM 4.5 mmol/L (3.5-5.0); SODIUM 138 mmol/L (135-145)
[2021-05-12 16:33] LABS: CRP - C-REACTIVE PROTEIN < 1.0 mg/dL (0-1.0)
== END 2021-05-12 16:00 | disposition home or self-care (01) ==
LOC: LAB 15:59 → LAB.R 16:00
DX: R53.1 Weakness (principal); D50.9 Iron deficiency anemia, unspecified; M15.8 Other polyosteoarthritis
CPT/HCPCS: 80053; 85025; 85651; 86140

== ENCOUNTER 2021-05-18 11:19 | Outpatient (CLI) | payer MEDICARE, OTHER ==
--- NOTE | 2021-05-18 17:09 | XRAY Report ---
PROCEDURE: Ankle 3 View RT INDICATIONS: INCREASED PAIN TECHNIQUE: 3 views of the ankle were acquired. COMPARISON: Ankle 03/23/2021 FINDINGS: Bones: Fusion is present at the first TMT joint. Midfoot degenerative changes are present. All hardwa re is intact. Ankle mortise is normally aligned. No suspicious bony lesions. Soft tissues: No tibiotalar joint effusion. Achilles tendon appears normal. IMPRESSION: Stable postsurgical changes. No visualized acute fracture or dislocation. However, occul t injury cannot be excluded. Recommend short interval imaging follow-up in 7-10 days as clinically in dicated for additional evaluation. Reviewed by: Doris Hayes MD on 05/18/2021 5:08 PM PST Approved by: Doris Hayes MD on 05/18/2021 5:08 PM [facility] Station ID: [id number]
== END 2021-05-18 11:20 | disposition home or self-care (01) ==
LOC: DI 11:19
PROVIDERS: ATTEND Hospitalist
DX: M25.571 Pain in right ankle and joints of right foot (principal); L53.9 Erythematous condition, unspecified

== ENCOUNTER 2021-06-07 08:34 | Outpatient (CLI) | payer MEDICARE, OTHER ==
[2021-06-07 09:21] LABS: BILIRUBIN,URINE NEGATIVE (NEGATIVE); GLUCOSE, URINE (UA) NEGATIVE (NEGATIVE); KETONES,URINE (UA) NEGATIVE (NEGATIVE); LEUKOCYTE ESTERASE, URINE MODERATE (NEGATIVE); NITRITE,URINE NEGATIVE (NEGATIVE); OCCULT BLOOD,URINE SMALL (NEGATIVE); PROTEIN,URINE NEGATIVE (NEGATIVE); UROBILINOGEN,URINE 0.2 (NORMAL) E.U./dL (NORMAL)
[2021-06-07 09:34] LABS: CLARITY,URINE HAZY (CLEAR)
[2021-06-07 10:05] LABS: BACTERIA,URINE Few /HPF (None Seen); RBC,URINE 0-5 /HPF (0-5); SQUAMOUS EPITHELIAL CELL,UR FEW Squamous (<= Few); WBC,URINE >25 /HPF (0-5)
== END 2021-06-07 08:35 | disposition home or self-care (01) ==
LOC: LAB 08:34 → LAB.R 08:35
DX: N39.0 Urinary tract infection, site not specified (principal)
CPT/HCPCS: 81001; 87086; 87181

== ENCOUNTER 2021-06-22 11:40 | Outpatient (CLI) | payer MEDICARE, OTHER ==
--- NOTE | 2021-06-22 15:06 | CONSULTATION NOTE ---
Palliative Care Follow Up - Referral Referring Provider: Dr. Elie Richardson Time of Visit: Initiated 1140 Referral setting: [facility] Referral Reason: Depression/Weight Loss/Chronic right ankle wound - Information Sources Records reviewed: Previous records reviewed History/Review of Systems obtained from: Patient Exam limitations: Clinical condition (mild STM impairment) - History of Present Illness Update Brief HPI Update: This is a 80-year-old female who was seen in follow-up today at [facility] due to history of weight loss, depression, and chronic right lateral malleolus wound. Provider wore N95 mask and eye shield. Please see detailed history dictated in HPI on 11/09/2020. Patient continues to have a chronic wound to her right lateral malleolus. She is frustrated that she requires frequent dressings and it has not resolved. She now has discomfort to her right great toe and an abrasion to her right forearm. She had an x-ray performed of her ankle on 03/23/2021 that demonstrated no acute fracture, no osseous lesion. She is status post course of Bactrim due to localized erythema around the wound bed in April 2021.She is being seen and evaluated by [facility]. She had a local debridement performed. She is pending a vascular consult. She also is status post treatment with Levaquin for UTI from 04/06/2022 that was positive for E. coli. She presently denies dysuria. She has had depressive symptoms in the past but presently denies this. Have been trialed on mirtazapine and was discontinued after she no longer wished to be on it. Weight remains gradually decreasing and presently at 110 pounds as of 05/27/2021. She is on supplementation To assist with weight stabilization and wound healing. Her biggest complaint at the present time is pain to her right lower extremity more specifically around her right ankle. Last night she reports was a bad night due to pain. Upon review of MAR she is asking for her hydrocodone/acetaminophen on an almost daily basis typically occurring in the chief clinical officer hours. She also has as needed acetaminophen 650 mg available to be utilized every 2 hours as needed for pain not to exceed 3000 mg daily from all sources. She reports that she has to wait for some time when she requests for pain pill and therefore, would benefit from having scheduled pain medication most pacifically in the evening to cover her overnight and allow for ease of sleep and comfort. Patient is amenable regarding this. Past Medical History: Patient has a past medical history of hypertension, COPD on chronic oxygen supplementation and prednisone therapy; pneumonia 2007, TIA 2007, infiltrating ductal breast cancer; kidney stones, osteoarthritis, osteoporosis history of Reclast infusion; compression fracture; pelvic hip fracture; fracture of fibula and left knee; bilateral foot reconstruction; cataract surgery; rotator cuff repair; former tobacco abuse use. Social History - Living Situation Living arrangement: skilled nursing Living Situation: Alone Support System: Prior to admission at [facility] in July 2020 the patient had a hospitalization and was residing at home independently prior to that hospitalization. She supported by her nephew and niece in law, Patricia who are local on [facility]. Patricia's contact number is [phone]. The patient's sister, Hiral is her DPOA with contact number [phone]. However, the patient presently has some discord with her sister in regards to the [place] in the fall 2020. Patient was previously residing in [place] before moving into [facility]. She is with no children. Palliative care knife finisher has followed. Medications/Allergies - Medications Home Medications: Ambulatory Orders Medication Instructions Recorded Confirmed Acetaminophen [Aphen] 1,000 mg PO .QAM MDD NTE 3g/24h 11/15/20 11/15/20 Albuterol Sulf [Ventolin Hfa 2 puffs INH Q4HR PRN 11/15/20 11/15/20 Inhaler] Amlodipine Besylate [Norvasc] 10 mg PO DAILY 11/15/20 11/15/20 Anastrozole 1 mg PO DAILY 11/15/20 11/15/20 Aspirin [Aspirin EC] 81 mg PO DAILY 11/15/20 11/15/20 Atenolol [Tenormin] 50 mg PO DAILY 11/15/20 11/15/20 Cholecalciferol 1,000 unit PO DAILY 11/15/20 Ferrous Gluconate 1 tab PO DAILY 11/15/20 11/15/20 Fluticasone/Salmeterol [Advair 1 inh BID 11/15/20 11/15/20 100-50 Diskus] Hydroxyurea [Hydrea] 500 mg PO DAILY 11/15/20 11/15/20 Lidocaine Patch 4% 1 patch TP Q8H PRN 11/15/20 Mineral Oil [Mineral Oil Enema] 1 applic [place] DAILY PRN 11/15/20 06/22/21 Multivitamin 1 tab PO DAILY 11/15/20 11/15/20 Protein Supplement 30 ml PO TID MDD wound healing 11/15/20 Tiotropium [employer] [Spiriva] 1 puffs IN DAILY 11/15/20 06/22/21 polyethylene glycoL 3350 [Miralax] 17 g PO DAILY PRN MDD if no BM 11/15/20 11/15/20 after 3 days predniSONE [Deltasone] 10 mg PO DAILY 11/15/20 06/22/21 Acetaminophen [Tylenol] 650 mg PO Q4H PRN MDD NTE 3,000mg 06/22/21 06/22/21 per day Fercho Powder 1 PO DAILY 06/22/21 polyethylene glycoL 3350 [Miralax] 1 cap PO DAILY 06/22/21 06/22/21 - Allergies Allergies/Adverse Reactions: Allergies Allergy/AdvReac Type Severity Reaction Status Date / Time venom-honey bee Allergy Severe ANAPHYLAXIS Verified 11/15/20 10:38 [bee venom (honey bee)] FARZANEH Inhibitors Allergy TONGUE Verified 11/15/20 10:38 SWELLING Review of Systems - Constitutional Constitutional: reports: Fatigue, Poor appetite (due to facility food not to her liking and has been working with the facility group fitness assistant department head on the food), Weight loss (110lbs 05/27/2021; weight 115.8lb 01/19; 11/03/2020 110.5lb). denies: Fever - Ears, Nose & Throat Ears, Nose & Throat: denies: Hearing aids - Cardiovascular Cardiovascular: reports: Exertional dyspnea. denies: Chest pain, Edema - Respiratory Respiratory: reports: Cough (due to COPD), SOB with exertion, Other (on chronic supplemental oxygen). denies: Wheezing, SOB at rest - Gastrointestinal Gastrointestinal: reports: Constipation (Bowel movement every 3-4days), Poor appetite (see HPI). denies: Abdominal pain, Vomiting - Genitourinary Genitourinary: denies: Dysuria, Incontinence - Musculoskeletal Musculoskeletal: reports: Joint pain (right LE, specifically to ankle), Assistive devices, Transfer issues - Integumentary Integumentary: reports: Other (wound to right lateral mallelous that is persistent and to right forearm wound--both with dressings) - Neurological Neurological: reports: General weakness, Memory problems (mild STM impairment) - Psychiatric Psychiatric: reports: Depression (no longer on remeron per patient request and denies depressive symptoms) - Hematologic/Lymphatic Hematologic/Lymph: reports: Anemia - All Other Systems All Other Systems: reports: Reviewed and negative Physical Exam - Vital Signs Temperature: 36.4 C Pulse Rate: 69 O2 Saturation: 97 (on 2L via NC) Blood Pressure: 126/64 - Physical Exam General Appearance: positive: No acute distress, Alert, Other (resting in bed in PJs) Eyes Bilateral: positive: Normal inspection ENT: positive: No signs of dehydration Neck: positive: Trachea midline Cardiovascular: positive: Regular rate & rhythm Respiratory: positive: No respiratory distress, Diminished in bases, Other (on supplemental oxygen, able to speak in full sentences) Abdomen: positive: Non-tender, Soft, Nml bowel sounds. 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 Presently without pain to her right ankle.) Nausea: None Anorexia: Moderate (4-6) Depression: None Anxiety: Mild (1-3) Feelings of wellbeing/Perceived Quality of Life: Fair Sleep: Variable sleep pattern (due to pain in right ankle) Constipation: Yes, Opoid induced Performance Status: Patient able to perform transfers. Remains continent of bowel and bladder. Able to ambulate short distances with four-wheel walker otherwise uses wheelchair for long distances. Able to self feed. Supplemental oxygen in place. No history of falls. - Palliative Care Discussion: Patient sustained a significant functional decline since June 2020 and even at her baseline had a limited area limited pulmonary reserve due to her chronic obstructive pulmonary disease. She continues to have a overall bed existence. She continues to have a persistent nonhealing wound to her right lateral malleolus. She is being followed by [facility] providers and recently had a debridement and is status post oral antibiotic therapy. She is pending a vascular consult given this has been nonhealing and she is open to this but otherwise does not want to have aggressive interventions. Given she is having localized discomfort to her right lateral malleolus due to the chronic wound would benefit from scheduled hydrocodone/acetaminophen 5 mg / 325 mg in the evening to assist with sleep and comfort and adjustment of her bowel regimen to optimize defecation. This is in place to ensure the patient has adequate administration of her pain medication to optimize her comfort and patient is in agreement to this. Will assess how she tolerates this and may consider twice daily dosing in the future. Impression and Recommendations - Palliative Care Impression: This is a 80-year-old female with end-stage COPD with chronic oxygen supplementation on prednisone therapy no longer with depressive symptoms, protein calorie malnutrition, chronic nonhealing right lateral malleolus p ersistent wound now with pain and debility. Would benefit from introduction of scheduled hydrocodone/acetaminophen 5 mg / 325 mg in the evening as well adjustment to her bowel regimen due to underlying constipation. Palliative care will continue to provide support, care coordination with pain and symptom management as well as anticipatory guidance. Recommendations/Counseling Done: 1. Nonhealing wound to right lateral malleolus. Protein calorie malnutrition and multiple comorbidities contributing. Continue wound care as ordered by [facility] provider. Has pending vascular consult. Continue To be followed by wound care provider. 2.Chronic pain to right lateral malleolus with nonhealing wound. Chronic pain to right lateral malleolus with nonhealing wound.Initiate hydrocodone/acetaminophen 5 mg / 325 mg at bedtime for pain. We will see how the patient tolerates this in plan to increase to twice daily dosing if needed. Decrease to acetaminophen 1,000mg in the AM for pain. Decrease acetaminophen 650 mg to every 6 hours as needed for pain not to exceed 3000 mg in 24 hours from all sources. Continue to monitor and optimize pain regimen to ensure the patient's comfort. 3. Constipation. Sedentary lifestyle and opioid use contributing.Presently being not on a scheduled bowel regimen. Will initiate MiraLAX 1 cap daily and hold for loose stools. We will also initiate milk of magnesia to be administered every 3 days if no bowel movement. Monitor bowel regimen and titrate to effect. Has prune juice available as well. 4. Protein calorie malnutrition in the setting of end-stage COPD. Recent weight loss to 110 pounds. Continue Fercho and protein calorie supplementation as ordered. Followed by internet technology manager at facility. 5. Depression. Patient reports that this is resolved and not a problem at this time. No longer on mirtazapine. We will continue to monitor. 6. End-stage COPD. On chronic oxygen supplementation. Continue prednisone 10 mg daily as ordered by her PCP. Continue Spiriva and Advair as ordered. Has albuterol as needed for wheezing or shortness of breath. Continue to provide support and tease out goals of care moving forward. CPT 77696 Plan of care reviewed at length with the patient with questions answered and addressed. Disclaimer: The chart note was formulated using voice recognition technology and unfortunately sound alike errors may occur.
== END 2021-06-22 11:41 | disposition home or self-care (01) ==
LOC: PC 11:40
PROVIDERS: ATTEND Nurse Practitioner Family
DX: Z51.5 Encounter for palliative care (principal); G89.29 Other chronic pain; S91.001D Unspecified open wound, right ankle, subsequent encounter; J44.9 Chronic obstructive pulmonary disease, unspecified; Z99.81 Dependence on supplemental oxygen; Z79.899 Other long term (current) drug therapy; Z79.52 Long term (current) use of systemic steroids; E46 Unspecified protein-calorie malnutrition; K59.03 Drug induced constipation; T40.2X5A Adverse effect of other opioids, initial encounter; R63.0 Anorexia; R63.4 Abnormal weight loss; Z87.440 Personal history of urinary (tract) infections; Z86.59 Personal history of other mental and behavioral disorders; Z66 Do not resuscitate
CPT/HCPCS: 99310

== ENCOUNTER 2021-06-24 11:45 | Outpatient (CLI) | payer MEDICARE, OTHER ==
[2021-06-24 12:43] LABS: BASOPHILS % (AUTO) 0.4 %; EOSINOPHILS # (AUTO) 0.1 10^3/uL (0.0-0.7); EOSINOPHILS % (AUTO) 0.9 %; HCT - HEMATOCRIT 40.4 % (37.0-47.0); LYMPHOCYTES # (AUTO) 1.4 10^3/uL (1.5-3.5); LYMPHOCYTES % (AUTO) 20.4 %; MEAN CORPUSCULAR HEMOGLOBIN 34.2 pg (27.0-31.0); MEAN CORPUSCULAR HGB CONC 32.2 g/dL (32.0-36.0); MEAN CORPUSCULAR VOLUME 106.3 fL (81.0-99.0); MEAN PLATELET VOLUME 10.9 fL (7.9-10.8); MONOCYTES # (AUTO) 0.8 10^3/uL (0.0-1.0); MONOCYTES % (AUTO) 10.8 %; NEUTROPHILS # (AUTO) 4.6 10^3/uL (1.5-6.6); NEUTROPHILS % (AUTO) 65.9 %; PLT - PLATELET COUNT 178 10^3/uL (130-450); RED CELL DISTRIBUTION WIDTH 14.4 % (12.0-15.0)
[2021-06-24 12:49] LABS: ALBUMIN 3.6 g/dL (3.2-5.5); ALBUMIN/GLOBULIN RATIO 1.4 (1.0-2.2); BILIRUBIN,TOTAL 0.7 mg/dL (0.2-1.0); CALCIUM 9.3 mg/dL (8.5-10.3); CREATININE 0.8 mg/dL (0.4-1.0); POTASSIUM 4.2 mmol/L (3.5-5.0); TOTAL PROTEIN 6.2 g/dL (6.7-8.2)
== END 2021-06-24 23:59 | disposition home or self-care (01) ==
LOC: LAB.R 11:45
PROVIDERS: ATTEND Hospitalist
DX: N17.9 Acute kidney failure, unspecified (principal)
CPT/HCPCS: 80053; 85025

== ENCOUNTER 2021-07-05 11:58 | Outpatient (CLI) | payer MEDICARE, OTHER ==
--- NOTE | 2021-07-05 13:08 | CONSULTATION NOTE ---
Palliative Care Follow Up - Referral Referring Provider: Dr. 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 Provider wore N95 mask. Please see detailed history dictated in HPI on 11/09/2020. Patient continues to have a chronic wound to her right lateral malleolus and remains frustrated that it has not healed over many months. She had an x-ray performed of her ankle on 03/23/2021 that demonstrated no acute fracture, no osseous lesion. She was treated for Bactrim due to localized erythema to the wound bed in April 2021 and is being followed by [facility]. She had local debridement performed. Presently, she is pending vascular duplex [place] and then once this is performed then be seen by vascular in [place]. This is not something that the patient wishes to move forward with given the time away from the [place] and [place]. However she also st ates in the same sentence that she does not want to "do nothing and be placated." The patient's has a history of weight loss. In Julyhe weighed 122.4 pounds and in April she weighed 114 pounds. Will request for reweigh this month for reevaluation. She does not like the taste of the food and eats minimally. She is on protein supplementations and is status post wound nutritional consult at the facility. Her biggest complaint continues to be pain to her right lower extremity specifically revolving around her wound. She is requesting hydrocodone/acetaminophen and is receiving this at bedtime but would benefit from it being scheduled given her frequency of requesting to optimize her comfort. She is presently on a course of doxycycline as she developed parenchyma to her right great toe and the toenail is coming off of the wound bed. No local clinical social worker available to see the patient based on her insurance and waiting for podiatry to be on site to evaluate when 07/12 per facility water/wastewater project manager. Past Medical History: Patient has a past medical history of hypertension, COPD on chronic oxygen supplementation and prednisone therapy; pneumonia 2007, TIA 2007, infiltrating ductal breast cancer; kidney stones, osteoarthritis, osteoporosis history of Reclast infusion; compression fracture; pelvic hip fracture; fracture of fibula and left knee; bilateral foot reconstruction; cataract surgery; rotator cuff repair; former tobacco abuse use. Social History - Living Situation Living arrangement: snf Living Situation: Alone Support System: Prior to admission at [facility] in July 2020 the patient had a h ospitalization and was residing at home independently prior to that hospitalization. She supported by her nephew and niece in law, Patricia who are local on [facility]. Patricia's contact number is [phone]. The patient's sister, Hiral is her DPOA with contact number [phone]. Patient was previously residing in [place] before moving into [facility]. She is with no children. She pleasantly reminisced about how her would make her laugh about everything and that he "went too soon." Palliative care phone triage specialist has followed. Medications/Allergies - Medications Home Medications: Ambulatory Orders Medication Instructions Recorded Confirmed Albuterol Sulf [Ventolin Hfa 2 puffs INH Q4HR PRN 11/15/20 11/15/20 Inhaler] Amlodipine Besylate [Norvasc] 10 mg PO DAILY 11/15/20 11/15/20 Anastrozole 1 mg PO DAILY 11/15/20 11/15/20 Aspirin [Aspirin EC] 81 mg PO DAILY 11/15/20 11/15/20 Atenolol [Tenormin] 50 mg PO DAILY 11/15/20 11/15/20 Cholecalciferol 1,000 unit PO DAILY 11/15/20 Ferrous Gluconate 1 tab PO DAILY 11/15/20 11/15/20 Fluticasone/Salmeterol [Advair 1 inh BID 11/15/20 11/15/20 100-50 Diskus] Hydroxyurea [Hydrea] 500 mg PO DAILY 11/15/20 11/15/20 Lidocaine Patch 4% 1 patch TP Q8H PRN 11/15/20 Mineral Oil [Mineral Oil Enema] 1 applic NM DAILY PRN 11/15/20 06/22/21 Multivitamin 1 tab PO DAILY 11/15/20 11/15/20 Protein Supplement 30 ml PO TID MDD wound healing 11/15/20 Tiotropium Edgar [Spiriva] 1 puffs IN DAILY 11/15/20 06/22/21 polyethylene glycoL 3350 [Miralax] 17 g PO DAILY PRN MDD if no BM 11/15/20 11/15/20 after 3 days predniSONE [Deltasone] 10 mg PO DAILY 11/15/20 06/22/21 Acetaminophen [Tylenol] 650 mg PO Q6H PRN MDD NTE 3,000mg 06/22/21 06/22/21 per day Hydrocodone/Acetaminophen 1 tab PO Q6H PRN 06/22/21 06/22/21 [Hydrocodone-Acetamin 5-300 mg] Hydrocodone/Acetaminophen 1 tab PO TID 06/22/21 06/22/21 [Hydrocodone-Acetamin 5-300 mg] Fercho Powder 1 PO DAILY 06/22/21 Magnesium Hydroxide [Milk of 30 ml PO DAILY PRN MDD no BM in 3 06/22/21 06/22/21 Magnesia] days polyethylene glycoL 3350 [Miralax] 1 cap PO DAILY 06/22/21 06/22/21 - Allergies Allergies/Adverse Reactions: Allergies Allergy/AdvReac Type Severity Reaction Status Date / Time venom-honey bee Allergy Severe ANAPHYLAXIS Verified 11/15/20 10:38 [bee venom (honey bee)] FARZANEH Inhibitors Allergy TONGUE Verified 11/15/20 10:38 SWELLING Review of Systems - Constitutional Constitutional: reports: Fatigue, Poor appetite (due to facility food not to her liking and has been working with the facility chef french on the food), Weight loss (110lbs 05/27/2021; weight 115.8lb 01/19; 11/03/2020 110.5lb; 122lb 07/2020). denies: Fever - Ears, Nose & Throat Ears, Nose & Throat: denies: Nasal congestion - Cardiovascular Cardiovascular: reports: Exertional dyspnea. denies: Chest pain, Edema - Respiratory Respiratory: reports: Cough (due to COPD), SOB with exertion, Other (on chronic supplemental oxygen). denies: Wheezing, SOB at rest - Gastrointestinal Gastrointestinal: reports: Poor appetite (see HPI). denies: Abdominal pain, Constipation (BM every day to every other day), Vomiting - Genitourinary Genitourinary: denies: Dysuria - Musculoskeletal Musculoskeletal: reports: Joint pain (right LE, specifically to ankle), Assistive devices, Transfer issues - Integumentary Integumentary: reports: Other (wound to right lateral mallelous that is persistent and right great toenail) - Neurological Neurological: reports: General weakness, Memory problems (mild STM impairment) - Psychiatric Psychiatric: reports: Depression (no longer on remeron per patient request and denies depressive symptoms) - Hematologic/Lymphatic Hematologic/Lymph: reports: Anemia - All Other Systems All Other Systems: reports: Reviewed and negative Physical Exam - Vital Signs Temperature: 36.6 C Pulse Rate: 62 O2 Saturation: 96 (on 2L via NC) Blood Pressure: 104/59 - Physical Exam General Appearance: positive: No acute distress, Alert, Cachetic, Other (resting in bed in PJs) Eyes Bilateral: positive: Normal inspection ENT: positive: No signs of dehydration, Other (Poor dentition) Neck: positive: Trachea midline Cardiovascular: positive: Regular rate & rhythm Respiratory: positive: No respiratory distress, Diminished in bases, Other (on supplemental oxygen) Abdomen: positive: Non-tender, Soft, Nml bowel sounds. 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 Would benefit from further dose titration of hydrocodone/acetaminophen 5 mg / 325 mg 3 times a day.) Dyspnea: Moderate (4-6) Feelings of wellbeing/Perceived Quality of Life: Poor Sleep: Variable sleep pattern Constipation: Opoid induced, Managed - Palliative Care Discussion: Patient continues to have a significant functional decline since June 2020 however, even prior to admission to [facility] had a limited functional status does given her pulmonary reserve due to chronic obstructive pulmonary disease. She continues to have an overall bed existence. She now has parenchyma to her right great toe and is being treated with oral antibiotics pending podiatry consult in house on 07/12 at the facility. And continues with persistent nonhealing wound to her right lateral malleolus with peripheral vascular changes likely contributing. Patient is to have diagnostics performed for vascular studies and then a vascular consult however, [place] and patient is very clear that she would not want surgery or interventions however, does want the wound to heal. Given her inversions for interventions and going off [place] introduced the oral subtlely of hospice services providing comfort measures within the facility environment and this is something that she may be open to without using the direct word hospice given insight from the water/wastewater project manager Sarika from the daughter sister about introducing the role of hospice without using the word hospice. The patient wishes for her niece, Patricia to be present for conversation before moving forward with any decision making. 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 Would benefit from further increase of scheduled hydrocodone/acetaminophen 5 mg / 325 mg to 3 times daily. Given the patient does not wish for interventions introduced the role of hospice services and will continue to have a building conversation regarding this with the patient's family and OA. She does present with some cognitive impairment and would benefit from support of her family. Palliative care will continue provide support, care coordination with pain and symptom management as well as anticipatory guidance. Recommendations/Counseling Done: 1. 1 great toe parenchyma with a evolved toenail. Presently on doxycycline. To see in-house clinical social worker on 07/12 as local podiatry does not accept patient's insurance. Continue to be followed by 1 site PCP. 2. Chronic pain to right lateral malleolus with nonhealing wound. Increase hydrocodone/acetaminophen 5 mg / 325 mg scheduled 3 times a day. Discontinue acetaminophen 1000 mg in the a.m. for pain. Continue acetaminophen 650 mg every 6 hours as needed for pain not to exceed 3000 mg in 24 hours from all sources. Continue hydrocodone/acetaminophen 5 mg / 325 mgEvery 6 hours as needed for pain. Continue to encourage to offload however, patient has not been consistent regarding this. Continue to monitor and optimize pain regimen to ensure the patient's comfort. 3. Nonhealing wound to right lateral malleolus. Protein calorie malnutrition and multiple comorbidities contributing. Continue wound care as ordered by [facility] provider. Has pending vascular consult and diagnostics however, the patient does not wish to have surgery or interventions and therefore will request to have a family conference regarding plan moving forward and potential transition to hospice services. 4. Protein calorie malnutrition in the setting of end-stage COPD. Pulmonary cachexia contributing and will unlikely to gain this weight back. Request that patient be weighed and results faxed to this provider. Continue Fercho and protein calorie supplementation as ordered by computer engineering professor on site. 5. End-stage COPD. On chronic oxygen supplementation. Continue prednisone 10 mg daily as ordered by PCP. Continue Spiriva and Advair as ordered. Has albuterol as needed for wheezing or shortness of breath. Request last PFTs from pulmonary provider. 6. Advanced care planning. Patient presents with some cognitive impairment and does not appear to fully grasp how the interventions will assist her with management of her comorbidities most specifically her wound to her right ankle. Would benefit from further support from her niece and DPOA/sister. Will request a family meeting to further discuss as the patient has been laying that she would not wish for interventions or surgery and therefore would be appropriate to transition to hospice services if all parties are in agreement. Total time spent 32 minutes with greater than 50% of the spent in counseling coronation of care with the patient, water/wastewater project manager, RN at facility, examination of patient; review of hospice support; pain and symptom management as well as anticipatory guidance. Message left for patient's niecePatricia at [phone] and sister/DPOA Hiral at [phone] to discuss plan of care moving forward and coordinate a 1 site care conference and awaiting return call. Disclaimer: The chart note was formulated using voice recognition technology and unfortunately sound alike errors may occur.
== END 2021-07-05 11:59 | disposition home or self-care (01) ==
LOC: PC 11:58
PROVIDERS: ATTEND Nurse Practitioner Family
DX: Z51.5 Encounter for palliative care (principal); G89.29 Other chronic pain; L89.519 Pressure ulcer of right ankle, unspecified stage; E46 Unspecified protein-calorie malnutrition; R64 Cachexia; L03.031 Cellulitis of right toe; K59.03 Drug induced constipation; T40.2X5A Adverse effect of other opioids, initial encounter; J44.9 Chronic obstructive pulmonary disease, unspecified; Z99.81 Dependence on supplemental oxygen; Z79.52 Long term (current) use of systemic steroids; Z79.899 Other long term (current) drug therapy; Z66 Do not resuscitate
CPT/HCPCS: 99310

== ENCOUNTER 2021-07-09 08:00 | Outpatient (CLI) | payer MEDICARE, OTHER ==
[2021-07-09 18:12] LABS: BASOPHILS % (AUTO) 0.3 %; HCT - HEMATOCRIT 39.8 % (37.0-47.0); HGB - HEMOGLOBIN 12.8 g/dL (12.0-16.0); LYMPHOCYTES # (AUTO) 0.7 10^3/uL (1.5-3.5); LYMPHOCYTES % (AUTO) 10.4 %; MEAN CORPUSCULAR HGB CONC 32.2 g/dL (32.0-36.0); MEAN CORPUSCULAR VOLUME 105.6 fL (81.0-99.0); MEAN PLATELET VOLUME 11.1 fL (7.9-10.8); MONOCYTES # (AUTO) 0.6 10^3/uL (0.0-1.0); MONOCYTES % (AUTO) 10.1 %; NEUTROPHILS # (AUTO) 4.9 10^3/uL (1.5-6.6); NEUTROPHILS % (AUTO) 77.1 %; PLT - PLATELET COUNT 192 10^3/uL (130-450); RED BLOOD COUNT 3.77 10^6/uL (4.20-5.40); RED CELL DISTRIBUTION WIDTH 14.8 % (12.0-15.0); WHITE BLOOD COUNT 6.3 x10^3/uL (4.8-10.8)
[2021-07-09 18:56] LABS: ALBUMIN 3.4 g/dL (3.2-5.5); ALBUMIN/GLOBULIN RATIO 1.4 (1.0-2.2); BILIRUBIN,TOTAL 0.3 mg/dL (0.2-1.0); CALCIUM 9.3 mg/dL (8.5-10.3); CRP - C-REACTIVE PROTEIN 1.5 mg/dL (0-1.0); POTASSIUM 4.2 mmol/L (3.5-5.0); TOTAL PROTEIN 5.9 g/dL (6.7-8.2)
== END 2021-07-09 23:59 ==
LOC: LAB.R 08:00
DX: J44.9 Chronic obstructive pulmonary disease, unspecified (principal); N17.9 Acute kidney failure, unspecified; L89.519 Pressure ulcer of right ankle, unspecified stage; M15.8 Other polyosteoarthritis; D50.9 Iron deficiency anemia, unspecified
CPT/HCPCS: 80053; 85025; 85651; 86140

== ENCOUNTER 2021-07-12 10:05 | Outpatient (CLI) | payer MEDICARE, OTHER ==
--- NOTE | 2021-07-12 13:38 | CONSULTATION NOTE ---
Palliative Care Follow Up - Referral Referring Provider: Dr. Elie Richardson Time of Visit: [id number] Referral setting: [facility] Referral Reason: Weight loss/CHronic right ankle wound/pain/ACP - Information Sources Records reviewed: Previous records reviewed History/Review of Systems obtained from: Patient, Family (Patricia yen) Exam limitations: Clinical condition (+STM impairment) - History of Present Illness Update Brief HPI Update: This is a 80-year-old female who was seen in follow-up today [facility] due to history of weight loss, protein calorie malnutrition, pain, chronic right lateral malleolus wound now with right great toe parenchyma and advance care planning with her niece, Patricia present. Provider wore N95 mask. Please see detailed history dictated in HPI on 11/09/2020. Patient has had right parenchyma to her right great toenail. She has been seen and evaluated by her PCP in house and has been ordered for podiatry as the nail is coming off of the nailbed. Per facility staff podiatry is in-house today to evaluate the patient. She has a history of hyperalgesia to her right limb and pain to her right ankle due to a chronic wound. On last evaluation her hydrocodone/acetaminophen was increased to 3 times daily dosing and this significantly improved her pain. She continues to be cantankerous regarding the care that she receives in the facility and complaints regarding the food. She is refusing to have her the care that she receives in the facility and complaints regarding the food. She is refusing to have her weight obtained and therefore, last recorded weight was 110 pounds on 05/27/2021. She weighed 122 pounds on 07/2020 on her admission to the facility. She has significant dyspnea with exertion and for the last 3 years has been on supplemental oxygen 13/11. Previously, she was utilizing oxygen intermittently. PFTs were obtained from stove tender on 09/12/2017 that demonstrated FVC 1.24, 56% of predicted, FEV1 0.51, 30% predicted, FEV1\\FVC 53%. Since that time she now has a bed to bedside commode existence and becomes extremely short of breath with movement and with talking. Given she continues to have a chronic wound to her right lateral malleolus she is frustrated that this has not healed over many months. She had an x-ray performed of her ankle on 03/23/2021 that demonstrated no acute fracture, no osseous lesion. She has been treated with oral antibiotics and has been followed by [facility]. She has also had local debridement performed. She is very adamant that she does not want to have a vascular appointment or diagnostics related to vasculature she does not want to leave [place] and therefore, wishes to focus on comfort. Past Medical History: Patient has a past medical history of hypertension, COPD on chronic oxygen supplementation and prednisone therapy; pneumonia 2007, TIA 2007, infiltrating ductal breast cancer; kidney stones, osteoarthritis, osteoporosis history of Reclast infusion; compression fracture; pelvic hip fracture; fracture of fibula and left knee; bilateral foot reconstruction; cataract surgery; rotator cuff repair; former tobacco abuse use. Social History - Living Situation Living arrangement: [facility] Living Situation: Alone Support System: Prior to admission at [facility] in July 2020 the patient had a hospitalization and was residing at home independently prior to that hospitalization. She supported by her nephew and niece in law, Patricia who are local on [facility]. Patricia's contact number is [phone]. The patient's sister, Hiral is her DPOA with contact number [phone], but there is some estrangement. Gisela and niece Patricia remain in contact. Patient was previously residing in [place] before moving into [facility]. She is with no children. Her niece, Patricia will be traveling internationally for 3 weeks. Palliative care emergency department technician has followed. Medications/Allergies - Medications Home Medications: Ambulatory Orders Medication Instructions Recorded Confirmed Albuterol Sulf [Ventolin Hfa 2 puffs INH Q4HR PRN 11/15/20 11/15/20 Inhaler] Amlodipine Besylate [Norvasc] 10 mg PO DAILY 11/15/20 11/15/20 Anastrozole 1 mg PO DAILY 11/15/20 11/15/20 Aspirin [Aspirin EC] 81 mg PO DAILY 11/15/20 11/15/20 Atenolol [Tenormin] 50 mg PO DAILY 11/15/20 11/15/20 Cholecalciferol 1,000 unit PO DAILY 11/15/20 Ferrous Gluconate 1 tab PO DAILY 11/15/20 11/15/20 Fluticasone/Salmeterol [Advair 1 inh BID 11/15/20 11/15/20 100-50 Diskus] Hydroxyurea [Hydrea] 500 mg PO DAILY 11/15/20 11/15/20 Lidocaine Patch 4% 1 patch TP Q8H PRN 11/15/20 Mineral Oil [Mineral Oil Enema] 1 applic NV DAILY PRN 11/15/20 06/22/21 Multivitamin 1 tab PO DAILY 11/15/20 11/15/20 Protein Supplement 30 ml PO TID MDD wound healing 11/15/20 Tiotropium [place] [Spiriva] 1 puffs IN DAILY 11/15/20 06/22/21 polyethylene glycoL 3350 [Miralax] 17 g PO DAILY PRN MDD if no BM 11/15/20 11/15/20 after 3 days predniSONE [Deltasone] 10 mg PO DAILY 11/15/20 06/22/21 Acetaminophen [Tylenol] 650 mg PO Q6H PRN MDD NTE 3,000mg 06/22/21 06/22/21 per day Hydrocodone/Acetaminophen 1 tab PO Q6H PRN 06/22/21 06/22/21 [Hydrocodone-Acetamin 5-300 mg] Hydrocodone/Acetaminophen 1 tab PO TID 06/22/21 06/22/21 [Hydrocodone-Acetamin 5-300 mg] Fercho Powder 1 PO DAILY 06/22/21 Magnesium Hydroxide [Milk of 30 ml PO DAILY PRN MDD no BM in 3 06/22/21 06/22/21 Magnesia] days polyethylene glycoL 3350 [Miralax] 1 cap PO DAILY 06/22/21 06/22/21 - Allergies Allergies/Adverse Reactions: Allergies Allergy/AdvReac Type Severity Reaction Status Date / Time venom-honey bee Allergy Severe ANAPHYLAXIS Verified 11/15/20 10:38 [bee venom (honey bee)] FARZANEH Inhibitors Allergy TONGUE Verified 11/15/20 10:38 SWELLING Review of Systems - Constitutional Constitutional: reports: Fatigue, Poor appetite (due to facility food not to her liking), Weight loss (110lbs 05/27/2021; weight 115.8lb 01/19; 11/03/2020 110.5lb; 122lb 07/2020). denies: Fever - Ears, Nose & Throat Ears, Nose & Throat: reports: Hearing loss. denies: Hearing aids - Cardiovascular Cardiovascular: reports: Exertional dyspnea, Decr. exercise tolerance. denies: Chest pain, Edema - Respiratory Respiratory: reports: Cough (due to COPD), SOB with exertion, Other (on chronic supplemental oxygen). denies: Sputum production, Wheezing - Gastrointestinal Gastrointestinal: reports: Poor appetite (see HPI). denies: Abdominal pain, Constipation (upon review of treatment log, patient is having a bowel movement typically daily), Vomiting - Genitourinary Genitourinary: denies: Dysuria, Incontinence - Musculoskeletal Musculoskeletal: reports: Joint pain (right LE, specifically to ankle), Assistive devices, Transfer issues - Integumentary Integumentary: reports: Other (wound to right lateral mallelous that is persi stent and right great toenail) - Neurological Neurological: reports: General weakness, Memory problems (mild STM impairment) - Psychiatric Psychiatric: reports: Depression (no longer on remeron per patient request and denies depressive symptoms), Other (Reports vivid dreams that feel realistice). denies: Anxiety - Hematologic/Lymphatic Hematologic/Lymph: reports: Anemia - All Other Systems All Other Systems: reports: Reviewed and negative Physical Exam - Vital Signs Temperature: 36.9 C Pulse Rate: 65 O2 Saturation: 96 (on RA) Blood Pressure: 108/53 - Physical Exam General Appearance: positive: No acute distress, Alert, Cachetic, Other (resting in bed in PJs) Eyes Bilateral: positive: Normal inspection ENT: positive: No signs of dehydration, Other (Poor dentition; soft, excess cerumen to left ear cannal attempted to remove with lighted currette but patient would not fully allow and only minimal amount removed and unable to visualize TM) Neck: positive: Trachea midline Cardiovascular: positive: Regular rate & rhythm Respiratory: positive: No respiratory distress, Diminished in bases, Other (on supplemental oxygen; pausing every few words for breath) Abdomen: positive: Non-tender, Soft, Nml bowel sounds. 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 Transferring from bedside commode to her bed she becomes extremely winded and short of breath. Remains continent of bowel and bladder. Weight loss. On supplemental oxygen. PPS 40% - Palliative Care Discussion: Patient continues to have significant functional decline since June 2020 with limited functional status due to her pulmonary reserve due to end-stage chronic obstructive pulmonary reseed disease. She continues to have an overall bed existence. This is not something that she had wanted for herself. In discussion today with her niece she expresses that her limited ability makes her feel weak and vulnerable. She relates that from her waist up everything is working "fine" except her lungs. She gets short of breath when speaking and is unable to do even minimal activity without becoming short of breath. She has parenchyma to her right great toe and is to be seen by podiatry in-house on 07/12. She continues to have a persistent nonhealing wound to her right lateral malleolus with likely peripheral vascular changes contributing. [place] be seen for a vascular consult and instead wishes to focus on comfort within the facility environment. She is open and amenable with discussion today regarding a "comfort team" utilization as a unit you [facility] for hospice services. She recognizes that transitioning to hospice services would then allow for a team to see her on site to optimize her comfort and quality of life and this is something that she desires to move forward with. Her niece, Patricia who is present is receptive and open to this as well. 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 Has had improvement of her pain with increase of hydrocodone/acetaminophen 5 mg / 325 mg 3 times a day. Patient does not wish for interventions and therefore introduced hospice services as a "comfort team" and patient is agreeable to transition to hospice services and has a support from her niece, Patricia who will also update the patient's sister/DPOA. The patient does present with some cognitive impairment and continues to benefit from some support from her family. Palliative care will continue to provide support, care coordination with pain and symptom management as well as anticipatory guidance until admission to hospice services. Recommendations/Counseling Done: 1. Right great toe parenchyma with evolved toenail. Status post oral antibiotics. To see in-house mailroom supervisor today, 07/12. 2. Protein calorie malnutrition in the setting of end-stage COPD. Pulmonary cachexia contributing and will unlikely to gain this weight back. Last recorded weight 110 pounds with admission weight 121 pounds in 2020. Patient frequently work refuses to have her weight obtained. Requested director RN to obtain the patient's weight today and provide results to ANIMAL HUSBANDRY MANAGER. Provide results to ANIMAL HUSBANDRY MANAGER. Continue Fercho and protein calorie supplementation as ordered by roll cutter on site. 3. End-stage COPD. Reviewed PFTs from 2018. On chronic oxygen supplementation. Dyspneic with speaking and with activity that is minimal from transitioning from bed to bedside commode. Continue prednisone 10 mg daily as ordered by PCP. Continue Spiriva and Advair as ordered. Has a butyryl as needed for wheezing or shortness of breath. 4. Nonhealing wound to right lateral malleolus. Protein calorie malnutrition and multiple comorbidities contributing. Continue wound Kiya as ordered by [facility] provider and transition to hospice services. Patient does not wish to have vascular consult or diagnostics as she would not wish to have surgery or interventions and therefore will transition to hospice services and optimize the patient's quality of life and comfort. 5. Chronic pain to right lateral malleolus with nonhealing wound. Improved. Continue hydrocodone/acetaminophen 5 mg / 325 mg 3 times a day. Continue hydrocodone/acetaminophen 5 mg / 325 mg every 6 hours as needed for pain. Patient continues to refuse to offload her right foot and recurs again today to utilize protector. Continue to monitor and optimize pain regimen to ensure the patient's comfort. 6. Advanced care planning. Patient presents with some cognitive impairment and is able to grasp not moving forward with interventions due to her comorbidities will result in continued decline and has a support from her niece, Patricia who was present. Patient wishes to focus on comfort and remain within the facility without going out for diagnostics or consults. Introduced the role of hospice as a "comfort team" and patient wishes to change transition to this given all of her above comorbidities with her goal to focus on comfort and no longer going to the emergency department. Her POLST reflects these wishes. Total time spent 60 minutes with greater than 50% of the spent in counseling and coronation of care with the patient and ken sales activity manager, RN at facility, examination of patient; review of support team as hospice services; pain and symptom management as well as anticipatory guidance. Disclaimer: The chart note was formulated using voice recognition technology and unfortunately sound alike errors may occur.
== END 2021-07-12 10:06 | disposition home or self-care (01) ==
LOC: PC 10:05
PROVIDERS: ATTEND Nurse Practitioner Family
DX: Z51.5 Encounter for palliative care (principal); L03.031 Cellulitis of right toe; J44.9 Chronic obstructive pulmonary disease, unspecified; R64 Cachexia; E46 Unspecified protein-calorie malnutrition; Z99.81 Dependence on supplemental oxygen; S91.001A Unspecified open wound, right ankle, initial encounter; G89.29 Other chronic pain; Z66 Do not resuscitate; R53.83 Other fatigue; Z87.891 Personal history of nicotine dependence
CPT/HCPCS: 99310

== ENCOUNTER 2021-07-13 12:40 | Outpatient (CLI) | payer MEDICARE, OTHER | END 2021-07-13 12:41 | disposition home or self-care (01) | LOC: LAB.R 12:40 | DX: L08.9 Local infection of the skin and subcutaneous tissue, unspecified (principal) | CPT/HCPCS: 87070; 87205 ==